=== PATIENT | male | born 2000 | race Caucasian/White ===

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

== ENCOUNTER 2021-02-05 21:04 | Emergency (ER) | payer MEDICAID, SELFPAY ==
[2021-02-05 21:05] VITALS: BP 127/78; PULSE 98; RESP 16; TEMP 36.2; O2SAT 98; BMI 40.2
--- NOTE | 2021-02-05 22:21 | ED.RN ---
LEFT WITHOUT BEING SEEN.
== END 2021-02-05 21:40 | disposition left against medical advice (07) ==
PROVIDERS: PCP Pediatrics
DX: Z53.21 Procedure and treatment not carried out due to patient leaving prior to being seen by health care provider (principal)

== ENCOUNTER 2021-07-21 20:59 | Emergency (ER) | payer MEDICAID, SELFPAY ==
[2021-07-21 21:00] VITALS: BP 146/86; PULSE 92; RESP 16; TEMP 36; O2SAT 97; BMI 30.1
--- NOTE | 2021-07-21 21:54 | ED.RN ---
DOCTOR WANTED CRISIS TO BE CALLED, JUST SO THE PATIENT CAN TALK TO CRISIS
--- NOTE | 2021-07-21 21:59 | EDS_ITS ---
HPI HPI - Psych History of Present Illness Chief Complaint: Suicidal Narrative Narrative: 21-year-old male with history of autism and ADHD presenting after saying he wanted to kill himself and hurt his family because he was mad. He states that he was mad because his mother was yelling at him because he was not doing things he was supposed to. He states that when they get mad and yell at him it makes him angry. He states that he does not actually want to hurt himself or his family. He also states that he will not actually go through with it. He does not have a plan for either. He states currently he does not feel angry and does not want to hurt himself or anybody else. [facility] Medical History ADHD Anxiety Autism Depression Diabetes Home Medications dexmethylphenidate 10 mg PO DAILY 02/14/19 [History Last Taken Unknown] haloperidol 1 mg PO DAILY 02/14/19 [History Last Taken Unknown] metformin 850 mg PO BID 02/14/19 [History Last Taken Unknown] sertraline 100 mg PO DAILY 02/14/19 [History Last Taken Unknown] Allergy/AdvReac Type Severity Reaction Status Date / Time No Known Allergies Allergy Verified 07/21/21 20:59 Social History Smoking Status: Never smoker [facility] ED Constitutional Constitutional ED: Denies chills, fever(s) or sweats Eyes Eyes: Denies blurry vision or change in vision ENT ENT ED: Denies ear pain or sore throat Cardiovascular Cardiovascular: Denies chest pain, palpitations or racing heartbeat Respiratory/Chest Respiratory/Chest: Denies cough, dyspnea or sputum Gastrointestinal Gastrointestinal: Denies abdominal pain, constipation, diarrhea, nausea or vomiting Genitourinary Genitourinary ED: Denies dysuria, hematuria or urinary frequency Musculoskeletal Musculoskeletal: Denies arthralgias, myalgias or neck pain Integumentary Denies abscess, Abrasions or rash Neurologic Neurologic: Denies headache(s), paresthesias or weakness Psychiatric Psychiatric: Reports suicidal thoughts; Denies anxiety, depression or suicidal ideation Endocrine Endocrinology: Denies polydipsia or polyuria EXAM Physical Exam Const Vital Signs: 07/21/21 21:00 07/21/21 22:45 07/21/21 23:28 Temperature 96.8 F L Temperature Source Temporal Pulse Rate 92 Respiratory Rate 16 16 16 Blood Pressure 146/86 H Blood Pressure Mean 106 Pulse Ox 97 Oxygen Delivery Method Room Air Positive well nourished General Appearance ED: NAD; Negative for pallor HEENT Reports normocephalic, head/scalp atraumatic and moist mucous membranes normocephalic Eyes PERRL and EOMs intact bilaterally Neck no lymphadenopathy and supple Chest Wall inspection of chest normal and palpation of chest normal Resp normal respiratory effort and clear to auscultation bilaterally Auscultation: Negative for rales, rhonchi or wheezes Cardio regular rate and regular rhythm GI normal to inspection, nondistended, normoactive bowel sounds and non-distended Auscultation: normoactive bowel sounds Palpation: soft Narrative: Deferred Back/Spine no CVA tenderness General Back: Negative for CVA tenderness Cervical Spine: Negative for cervical spine tenderness Extremity normal to inspection General Extremety ED: Yes edema and tenderness General Extremity: edema Neuro oriented x3 and CN's II-XII intact bilaterally Sensorium / Orientation: alert Motor Exam: strength 5/5 throughout Psych mental status grossly normal Appearance: grossly normal Attitude: No agitated Activity / Motor Behavior: appropriate eye contact Attention / Concentration: attention grossly intact Insight: fair Judgement: fair Skin no rashes or lesions noted and no wounds General Skin Exam: Negative for jaundice or pallor MDM MDM MDM Narrative Medical decision making narrative: Patient presenting with anger outburst. After talking with crisis we both believe that the patient is safe for discharge. She states that she had a long talk with his parents and recommended teaching him how to redirect his anger because he has been more having more anger worse. She also stated that his parents had not been reaching out to his psychiatrist and telling him when he is having anger outburst that they have not been giving him ways to deal with it. She recommended reaching out to the psychiatrist. We do not believe the patient is suicidal or homicidal. We believe he can be safely discharged home. Impression: 1. Suicidal statements 2. Aggressive behavior Discharge Plan Triage Chief Complaint: Suicidal ED Provider: Naresh Coombs Dx/Rx/DC Orders Instructions: ED Personality Disorder, Family Support for Autism ... Prescriptions: No Action sertraline 100 mg tablet 100 mg PO DAILY RF: 0 metformin 850 MG tablet 850 mg PO BID RF: 0 haloperidol 1 MG tablet 1 mg PO DAILY RF: 0 dexmethylphenidate 10 MG tablet 10 mg PO DAILY RF: 0 Primary Care Provider: Care Physician,No Primary Referrals: Care Physician,No Primary [Primary Care Provider] - Disposition Disposition: Home, Self Care
[2021-07-21 22:45] VITALS: RESP 16
[2021-07-21 23:28] VITALS: RESP 16
[2021-07-22 00:02] VITALS: RESP 15
== END 2021-07-22 00:02 | disposition home or self-care (01) ==
PROVIDERS: Emergency Provider Student in an Organized Health Care Education/Training Program; Visit Provider Student in an Organized Health Care Education/Training Program
DX: F84.0 Autistic disorder (principal)
CPT/HCPCS: 99284

== ENCOUNTER 2021-09-09 07:04 | Outpatient (CLI) | payer MEDICAID, SELFPAY ==
[2021-09-09 07:47] LABS: Hematocrit 45.6 % (40-54); Hemoglobin 15.6 g/dL (13.0-16.5); Mean Corp Hgb Conc 34.2 g/dL (32-36); Mean Corpuscular Hgb 28.9 pg (27.0-32.0); Mean Corpuscular Volume 84.4 fL (80-94); Mean Platelet Vol. 11.1 fl (6.2-12.0); Platelet Count 219 K/mm3 (150-450); RBC Distribution Width CV 12.5 % (11.6-14.6); RBC Distribution Width SD 37.9 fl (35.1-43.9); White Blood Count 8.9 K/mm3 (4.4-11.0)
[2021-09-09 08:16] LABS: Anion Gap 5 (5-15); BUN 18 mg/dL (7-18); BUN/Creat Ratio 23.2 RATIO (10-20); Calcium,Total 8.4 mg/dL (8.5-10.1); Chloride 105 mmol/L (98-107); Cholesterol 150 mg/dL (200); Creatinine, Serum 0.78 mg/dL (0.70-1.30); EST Glomerular Filtration Rate 135 mL/min (>60); Est Glom Filt Rate - Afr Amer 163 mL/min (>60); Glucose 113 mg/dL (74-106); High Density Lipoprotein 28 mg/dL; Potassium 4.2 mmol/L (3.5-5.1); Sodium Level 139 mmol/L (136-145); Thyroid Stim Hormone (TSH) 1.68 uIU/mL (0.358-3.74); Triglycerides 163 mg/dL; Very Low Density Lipoprotein 33 mg/dL (5-40)
== END 2021-09-09 23:59 | disposition home or self-care (01) ==
PROVIDERS: PCP Family Medicine; Referring Provider Family Medicine; Visit Provider Family Medicine
DX: Z00.00 Encounter for general adult medical examination without abnormal findings (principal); R30.0 Dysuria
CPT/HCPCS: 36415; 80048; 80061; 84443; 85027; 87086; 87088

== ENCOUNTER 2022-11-30 21:36 | Emergency (ER) | payer MEDICAID, SELFPAY ==
[2022-11-30 21:37] VITALS: BP 133/71; PULSE 82; RESP 16; TEMP 36.4; O2SAT 99
[2022-11-30 21:43] VITALS: BMI 36.4
--- NOTE | 2022-11-30 21:53 | EDS_ITS ---
HPI History of Present Illness Chief Complaint: Complaint Informant: patient and parent Narrative Narrative: Patient complains of some burning when he urinates for the last day and a half. It sounds like his outputs been normal. He has no difficulty urinating. No nausea vomiting abdominal pain back pain flank pain or change in bowel habits. No fevers or chills. No eye pain itching or discharge. No joint pain. He has no penile discharge. He has no testicular pain. He has not had this before. He does state that the urine is darker than normal but he has no back or flank pain or history of kidney stones. Nothing really makes this better or worse. [facility] Medical History ADHD Anxiety Autism Depression Diabetes Home Medications dexmethylphenidate 10 mg tablet 10 mg PO DAILY 02/14/19 [History Last Taken Unknown] haloperidol 1 mg tablet 1 mg PO DAILY 02/14/19 [History Last Taken Unknown] metformin 850 mg tablet 850 mg PO BID 02/14/19 [History Last Taken Unknown] sertraline 100 mg tablet 100 mg PO DAILY 02/14/19 [History Last Taken Unknown] metformin 1,000 mg tablet 1,000 mg PO BID 11/30/22 [History Last Taken 11/30/22] metoprolol succinate 100 mg tablet,extended release 24 hr 100 mg PO DAILY 11/30/22 [History Last Taken 11/30/22] naproxen 500 mg tablet 500 mg PO BID #20 tabs 11/30/22 [Rx Last Taken Unknown] topiramate 25 mg tablet 25 mg PO Q12H 11/30/22 [History Last Taken Unknown] Allergy/AdvReac Type Severity Reaction Status Date / Time No Known Allergies Allergy Verified 07/21/21 20:59 Social History Smoking Status: Never smoker ROS ROS ED ROS Narrative A complete review of systems was performed and is negative except as documented in the history of present illness. Some specific details below. Constitutional: No recent fevers or chills. EYE: No visual complaints or pain. No itching or burning. ENT: No difficulty swallowing. No swelling. No pain. No thrush CV: No chest pain or palpitations. Respiratory: No dyspnea. No hemoptysis. No difficulty taking breaths. GI: No nausea vomiting abdominal pain back pain flank pain or diarrhea. : See history of present illness. Musculoskeletal: No recent trauma. No pains. Including no pains in his back. Skin: No rash. Nondiaphoretic. Neuro: No weakness or numbness. Endocrine: No polyuria or polydipsia. He does have a history of prediabetes but is on metformin 1000 mg twice a day. EXAM Physical Exam Narrative Exam Narrative: CONSTITUTIONAL: Patient is nontoxic in appearance. The patient looks comfortable. HEENT: No notable trauma. Mucous membranes moist. EYES: No conjunctival injection. No proptosis. No discharge CARDIOVASCULAR: Regular rate. Regular rhythm. No notable murmur. No JVD. RESPIRATORY: No respiratory distress. Breathing is unlabored. No wheezes. No rhonchi. No rales. No pain with a deep breath. GASTROINTESTINAL: Not distended. Bowel sounds are normal. No tenderness. No guarding. No rebound. No palpable mass. No bruit. Abdomen is completely benign GENITOURINARY: No tenderness over the bladder. No CVA tenderness. No testicular tenderness or enlargement. No inguinal mass tenderness or hernia. No inguinal or penile sores. No penile discharge. Overall external exam is normal. MUSCULOSKELETAL: Atraumatic. NEUROLOGICAL: Patient is alert and appropriate. No focal deficit noted. SKIN: No noted rashes. No diaphoresis. PSYCHIATRIC: Patient is calm. Mood is appropriate. Const Vital Signs: 11/30/22 21:37 Temperature 97.6 F L Temperature Source Temporal Pulse Rate 82 Respiratory Rate 16 Blood Pressure 133/71 H Blood Pressure Mean 91 Pulse Ox 99 Oxygen Delivery Method Room Air [facility] Narrative Medical decision making narrative: Blood glucose is reasonably well controlled at 135 when checked here. Urinalysis shows only 0-5 white cells. No nitrites. There was a small amount of ketones. There was a rare calcium oxalate crystal. This brings into question could this be a kidney stone. I talked with the patient. He is not having pain in the abdomen flank or back. He has never had nausea or vomiting. He only has dysuria. He now does state that sometimes he has pain kind of in the lower pelvis when he stands up or moves but not all the time. This has been going on about a day or day and a half. It sounds like his dad did have kidney stones but he has never had 1. We discussed doing blood work and doing CAT scan of the abdomen. But this patient is extremely comfortable. He is sitting on the bed comfortable on his phone. I think it is reasonable to have him drink fluids as he has no nausea or vomiting is not had at any point. I told him he should drink water until the urine is pale yellow. He does not need to make it clear. We will get him some Naprosyn that I think will help for his pain. If he passes a small stone he should try to save that. I explained what they would look like and the likely size. If he still having symptoms after a few days to the week or if he develops pain, nausea vomiting, fevers or other symptoms he should return and we will do further imaging and evaluation at that point. Lab Data Attestation: I reviewed the patient's lab results. Labs: Laboratory Results - last 24 hr 11/30/22 11/30/22 22:05 22:07 Urine Color Yellow Urine Clarity Sl. Cloudy Urine pH 6.0 Ur Specific [place] 1.025 Urine Protein 30 H Urine Glucose (UA) Normal Urine Ketones 5 H Urine Occult Blood Negative Urine Nitrite Negative Urine Bilirubin 1 H Urine Urobilinogen 1 H Ur Leukocyte Esterase 25 H Urine RBC 0 SEEN Urine WBC 0-5 SEEN Ur Squamous Epith Cells 0-5 SEEN Calcium Oxalate Crystal RARE Amorphous Sediment 1+ URATE Urine Bacteria 0 SEEN Urine Mucus 0 SEEN POC Glucose 135 H Discharge Plan Triage Chief Complaint: Complaint ED Provider: Jose Fish Dx/Rx/DC Orders Clinical Impression: Dysuria, Diabetes type 2, controlled, Calciuria Instructions: Kidney Stones Expectant Tx Prescriptions: New naproxen 500 mg tablet 500 mg PO BID Qty: 20 0RF No Action sertraline 100 mg tablet 100 mg PO DAILY Patient Comments: Take 1 tablet by mouth at bedtime metformin 850 MG tablet 850 mg PO BID haloperidol 1 MG tablet 1 mg PO DAILY dexmethylphenidate 10 MG tablet 10 mg PO DAILY metformin 1,000 mg tablet 1,000 mg PO BID Patient Comments: Take 1 tablet by mouth twice a day as directed Take 1 tab with Breakfast & 1 tab with Dinner. metoprolol succinate 100 mg tablet extended release 24 hr 100 mg PO DAILY Patient Comments: Take 1 tablet by mouth every morning topiramate 25 mg tablet 25 mg PO Q12H Patient Comments: Take 1 tablet by mouth twice a day AM and Bed Primary Care Provider: Rodrigo Sheehan Referrals: Rodrigo Sheehan MD [Primary Care Provider] - 1-2 Days if not improving Activity Restrictions/Additional Instructions: Drink water to make your urine pale yellow. Return with pain, vomiting, fevers or other concerns. Disposition Disposition: Home, Self Care
[2022-11-30 22:07] LABS: Bacteria 0 SEEN /hpf (None Seen); Mucous, Urine 0 SEEN /hpf (<or=2+); Red Blood Cells-Urine 0 SEEN /hpf (0-5)
[2022-11-30 22:26] LABS: Bedside Glucose 135 mg/dL (74-106)
[2022-11-30 22:52] LABS: Color, Urine Yellow (Yellow); Glucose, Dipstick Normal (Normal); Ketone-Dipstick 5 mg/dl (Negative); Leukocyte Esterase-Dipstick 25 /ul (Negative); Nitrite-Dipstick Negative (Negative); Occult Blood-Urine Negative /ul (Negative); Protein-Dipstick 30 mg/dl (Negative); Specific Gravity, Urine 1.025 (1.002-1.030); Urine Clarity Sl. Cloudy (Clear); Urine Urobilinogen 1 mg/dl (Normal)
[2022-11-30 23:04] LABS: Squamous Epithelial Cells - UA 0-5 SEEN /hpf (0-5); Urine Bilirubin Dipstick 1 mg/dL (Negative); White Blood Cells 0-5 SEEN /hpf (0-5)
[2022-11-30 23:05] LABS: Amorphous Sediment 1+ URATE; Calcium Oxalate Crystals Ur RARE /hpf (<or=2+)
[2022-11-30] MEDS: Naproxen 250 MG Tablet 500 MG PO (23:35)
[2022-11-30 23:37] VITALS: BP 135/64; PULSE 75; RESP 18; O2SAT 100
== END 2022-11-30 23:37 | disposition home or self-care (01) ==
PROVIDERS: Emergency Provider Emergency Medicine; PCP Family Medicine; Visit Provider Emergency Medicine
DX: R30.0 Dysuria (principal); E11.9 Type 2 diabetes mellitus without complications; F41.9 Anxiety disorder, unspecified; R82.994 Hypercalciuria; Z79.899 Other long term (current) drug therapy; Z79.84 Long term (current) use of oral hypoglycemic drugs
CPT/HCPCS: 81001; 82962; 87086; 99283

== ENCOUNTER → 2023-01-19 | Outpatient (CLI) | payer MEDICAID, SELFPAY ==
[2023-01-19 08:38] LABS: Anion Gap 3 (5-15); BUN 14 mg/dL (7-18); BUN/Creat Ratio 14.1 RATIO (10-20); Calcium,Total 8.6 mg/dL (8.5-10.1); Chloride 110 mmol/L (98-107); Cholesterol 143 mg/dL (200); Creatinine, Serum 0.99 mg/dL (0.70-1.30); EST Glomerular Filtration Rate 100 mL/min (>60); Est Glom Filt Rate - Afr Amer 121 mL/min (>60); Glucose 146 mg/dL (74-106); High Density Lipoprotein 30 mg/dL; Potassium 4.2 mmol/L (3.5-5.1); Sodium Level 140 mmol/L (136-145); Triglycerides 193 mg/dL; Very Low Density Lipoprotein 39 mg/dL (5-40)
[2023-01-20 09:58] LABS: Hemoglobin A1c 5.2 % (3.8-5.6)
== END | disposition home or self-care (01) ==
LOC: LAB 07:43
PROVIDERS: PCP Family Medicine; Referring Provider Family Medicine; Visit Provider Family Medicine
DX: R73.03 Prediabetes (principal)
CPT/HCPCS: 36415; 80048; 80061; 83036

== ENCOUNTER → 2023-03-20 | Outpatient (CLI) | payer MEDICAID, SELFPAY ==
[2023-03-20 13:05] LABS: Bacteria 0 SEEN /hpf (None Seen); Mucous, Urine 0 SEEN /hpf (<or=2+); Red Blood Cells-Urine 0 SEEN /hpf (0-5); Squamous Epithelial Cells - UA 0 SEEN /hpf (0-5); White Blood Cells 0 SEEN /hpf (0-5)
[2023-03-20 13:20] LABS: Color, Urine Yellow (Yellow); Glucose, Dipstick Normal (Normal); Ketone-Dipstick Negative (Negative); Leukocyte Esterase-Dipstick Negative /ul (Negative); Nitrite-Dipstick Negative (Negative); Occult Blood-Urine Negative /ul (Negative); Protein-Dipstick Negative (Negative); Urine Bilirubin Dipstick Negative (Negative); Urine Clarity Clear (Clear); Urine Urobilinogen Normal (Normal)
[2023-03-20 13:41] LABS: Amorphous Sediment 2+
[2023-04-08 13:35] LABS: Chlamydia By Nucleic Acid AMP Negative; Gonococcus By Nucleic Acid AMP Negative
== END | disposition home or self-care (01) ==
LOC: LABSPEC 03-21 09:56
PROVIDERS: PCP Family Medicine; Visit Provider Physician Assistant
DX: R30.0 Dysuria (principal)
CPT/HCPCS: 81001; 87086; 87491; 87591

== ENCOUNTER 2023-03-22 12:08 | Emergency (ER) | payer MEDICAID, SELFPAY ==
[2023-03-22 12:09] VITALS: BP 146/70; PULSE 76; RESP 18; TEMP 35.8; O2SAT 99; BMI 37.0
--- NOTE | 2023-03-22 12:36 | EX.ED.DYSGE1 ---
HPI History of Present Illness Chief Complaint: Abd Pain Informant: patient Narrative Narrative: 22-year-old male presenting to the emergency room chief complaint is abdominal pain. Patient states for the past 2 weeks he has had intermittent but near constant right upper quadrant pain. Nothing seems to make it better or worse. He does note that pushing on it definitely hurts. He denies vomiting or diarrhea. Food does not alter it. He denies any prior abdominal surgeries. No fever. No rashes. No flank pain or shoulder pain. Normal bowel movement today. Patient is a diabetic on metformin. He was seen by his primary care doctor this morning was referred to the emergency department [facility] Medical History Abdominal pain ADHD Anxiety Autism Depression Diabetes Home Medications dexmethylphenidate 10 mg tablet 10 mg PO DAILY 02/14/19 [History Last Taken Unknown] haloperidol 1 mg tablet 1 mg PO DAILY 02/14/19 [History Last Taken Unknown] metformin 850 mg tablet 850 mg PO BID 02/14/19 [History Last Taken Unknown] sertraline 100 mg tablet 100 mg PO DAILY 02/14/19 [History Last Taken Unknown] metformin 1,000 mg tablet 1,000 mg PO BID 11/30/22 [History Last Taken 11/30/22] metoprolol succinate 100 mg tablet,extended release 24 hr 100 mg PO DAILY 11/30/22 [History Last Taken 11/30/22] naproxen 500 mg tablet 500 mg PO BID #20 tabs 11/30/22 [Rx Last Taken Unknown] topiramate 25 mg tablet 25 mg PO Q12H 11/30/22 [History Last Taken Unknown] Allergy/AdvReac Type Severity Reaction Status Date / Time No Known Allergies Allergy Verified 03/22/23 12:09 Social History Smoking Status: Never smoker ROS ROS ED Constitutional Constitutional ED: Denies chills, fever(s) or weight loss Eyes Eyes: Denies change in vision or diplopia ENT ENT ED: Denies ear pain, rhinorrhea or sore throat Cardiovascular Cardiovascular: Denies chest pain, orthopnea, palpitations or racing heartbeat Respiratory/Chest Respiratory/Chest: Denies cough, dyspnea or orthopnea Gastrointestinal Gastrointestinal: Reports abdominal pain; Denies constipation, diarrhea, melena, nausea or vomiting Genitourinary Genitourinary ED: Denies dysuria, hematuria or urinary frequency Musculoskeletal Musculoskeletal: Denies arthralgias or myalgias Integumentary Denies abscess or rash Neurologic Neurologic: Denies headache(s) or weakness Psychiatric Psychiatric: Denies anxiety, depression, suicidal ideation or suicidal thoughts Endocrine Endocrinology: Denies polydipsia, polyphagia or polyuria Allergic/Immunologic Allergic/Immunologic ED: Denies mouth swelling, tongue swelling or urticaria EXAM Physical Exam Const Vital Signs: 03/22/23 12:09 Temperature 96.4 F L Temperature Source Temporal Pulse Rate 76 Respiratory Rate 18 Blood Pressure 146/70 H Blood Pressure Mean 95 Pulse Ox 99 Oxygen Delivery Method Room Air Positive well nourished and well developed General Appearance ED: well developed HEENT Reports normocephalic, head/scalp atraumatic and moist mucous membranes Eyes PERRL and EOMs intact bilaterally Neck no lymphadenopathy, supple and no JVD Resp normal respiratory effort and clear to auscultation bilaterally Cardio regular rate, regular rhythm and no murmurs GI normal to inspection, nondistended, normoactive bowel sounds Inspection: Negative for abdominal distention Auscultation: normoactive bowel sounds Palpation: soft and tender RUQ; Negative for guarding or rebound tenderness present Back/Spine no CVA tenderness and normal ROM Extremity normal to inspection General Extremety ED: Negative for edema General Extremity: Negative for edema Neuro oriented x3 and CN's II-XII intact bilaterally Sensorium / Orientation: alert Motor Exam: strength 5/5 throughout Psych mental status grossly normal Mood & Affect: Negative for depressed or tearful Skin no rashes or lesions noted and no wounds MDM MDM MDM Narrative Medical decision making narrative: Basic blood works obtained showed a white count 6.2 hemoglobin 16.6. Creatinine 0.92. Normal enzymes and lipase. This is CT of the abdomen pelvis with IV contrast was obtained. This confound changes consistent with mesenteric adenitis. There is no evidence of appendicitis or acute cholecystitis. No gallstones were noted. No evidence of colitis/diverticulitis. Patient was given reassurance and would recommend anti-inflammatories. Follow-up as needed History & Record Review Discussion w/independent historian: Patient and Family Lab Data Attestation: I reviewed the patient's lab results. Labs: Laboratory Results - last 24 hr 03/22/23 12:30 WBC 6.2 RBC 5.76 Hgb 16.6 H Hct 49.9 MCV 86.6 MCH 28.8 MCHC 33.3 RDW Std Deviation 38.0 RDW Coeff of Lynn 12.0 Plt Count 177 MPV 11.6 Immature Gran % (Auto) 0.300 Neut % (Auto) 62.0 Lymph % (Auto) 30.2 Nolan % (Auto) 6.2 Eos % (Auto) 1.0 Baso % (Auto) 0.3 Absolute Neuts (auto) 3.8 Absolute Lymphs (auto) 1.86 Nucleated RBC % 0 Sodium 140 Potassium 5.0 Chloride 108 H Carbon Dioxide 28.0 Anion Gap 4 L BUN 16 Creatinine 0.92 Estim Creat Clear Calc 131.14 Est GFR (MDRD) Af Amer 133 Est GFR (MDRD) Non-Af 110 BUN/Creatinine Ratio 17.5 Glucose 128 H Calcium 8.5 Total Bilirubin 0.40 Direct Bilirubin 0.06 AST 33 ALT 28 Alkaline Phosphatase 54 Total Protein 6.5 Albumin 3.3 Globulin 3.2 Lipase 15 Urine Color Yellow Urine Clarity Sl. Cloudy Urine pH 7.0 Ur Specific Vanderbilt 1.010 Urine Protein 15 H Urine Glucose (UA) Normal Urine Ketones Negative Urine Occult Blood Negative Urine Nitrite Negative Urine Bilirubin Negative Urine Urobilinogen Normal Ur Leukocyte Esterase 25 H Urine RBC 0 SEEN Urine WBC 0-5 SEEN Ur Squamous Epith Cells 0 SEEN Amorphous Sediment 2+ Urine Bacteria 1+ Urine Mucus 0 SEEN Radiography Diagnostic Testing: Clinical Impression(s) from Imaging Studies Abdomen/Pelvis CT 03/22/23 13:28 IMPRESSION: Findings suggestive of mesenteric adenitis in the right lower quadrant. Electronically Signed: Atul Coburn MD at 14:56 EDT , Discharge Plan Triage Chief Complaint: Abd Pain ED Provider: Rajinder Rodriguez Dx/Rx/DC Orders Clinical Impression: Mesenteric adenitis, Abdominal pain Instructions: ED Adenitis, Mesenteric Prescriptions: No Action sertraline 100 mg tablet 100 mg PO DAILY Patient Comments: Take 1 tablet by mouth at bedtime metformin 850 MG tablet 850 mg PO BID haloperidol 1 MG tablet 1 mg PO DAILY dexmethylphenidate 10 MG tablet 10 mg PO DAILY metformin 1,000 mg tablet 1,000 mg PO BID Patient Comments: Take 1 tablet by mouth twice a day as directed Take 1 tab with Breakfast & 1 tab with Dinner. metoprolol succinate 100 mg tablet extended release 24 hr 100 mg PO DAILY Patient Comments: Take 1 tablet by mouth every morning topiramate 25 mg tablet 25 mg PO Q12H Patient Comments: Take 1 tablet by mouth twice a day AM and Bed naproxen 500 mg tablet 500 mg PO BID Qty: 20 0RF Primary Care Provider: Rodrigo Sheehan Referrals: Rodrigo Sheehan MD [Primary Care Provider] - As Needed Disposition Disposition: Home, Self Care
[2023-03-22 12:46] LABS: Mucous, Urine 0 SEEN /hpf (<or=2+); Red Blood Cells-Urine 0 SEEN /hpf (0-5); Squamous Epithelial Cells - UA 0 SEEN /hpf (0-5)
[2023-03-22 12:51] LABS: Absolute Lymphocyte Count 1.86 X10^3/uL (0.83-4.51); Absolute Neutrophil Count 3.8 X10^3/uL (2.0-7.7); Basophil# 0.02 X10^3/uL; Basophil% 0.3 % (0-1); Eosinophil# 0.06 X10^3/uL; Hematocrit 49.9 % (40-54); Hemoglobin 16.6 g/dL (13.0-16.5); Lymphocyte # 1.86 X10^3/ul (0.83-4.51); Lymphocyte % 30.2 % (19-41); Mean Corp Hgb Conc 33.3 g/dL (32-36); Mean Corpuscular Hgb 28.8 pg (27.0-32.0); Mean Corpuscular Volume 86.6 fL (80-94); Mean Platelet Vol. 11.6 fl (6.2-12.0); Monocyte# 0.38 X10^3/uL; Monocyte% 6.2 % (0-10); NRBC Flagged by Analyzer 0 % (0-5); Neutrophil # 3.81 X10^3/uL (2.7-7.7); Platelet Count 177 K/mm3 (150-450); Red Blood Count 5.76 M/mm3 (4.6-6.2); White Blood Count 6.2 K/mm3 (4.4-11.0)
[2023-03-22 13:04] LABS: Color, Urine Yellow (Yellow); Glucose, Dipstick Normal (Normal); Ketone-Dipstick Negative (Negative); Leukocyte Esterase-Dipstick 25 /ul (Negative); Nitrite-Dipstick Negative (Negative); Occult Blood-Urine Negative /ul (Negative); Protein-Dipstick 15 mg/dl (Negative); Urine Bilirubin Dipstick Negative (Negative); Urine Clarity Sl. Cloudy (Clear); Urine Urobilinogen Normal (Normal)
[2023-03-22 13:11] LABS: AST(SGOT) 33 U/L (15-37); Alanine Aminotransfer ALT/SGPT 28 U/L (16-61); Albumin, Serum 3.3 g/dL (3.2-5.0); Alkaline Phosphatase 54 U/L (45-117); Anion Gap 4 (5-15); BUN 16 mg/dL (7-18); BUN/Creat Ratio 17.5 RATIO (10-20); Bilirubin, Direct 0.06 mg/dL (0.00-0.30); Calcium,Total 8.5 mg/dL (8.5-10.1); Chloride 108 mmol/L (98-107); Creatinine, Serum 0.92 mg/dL (0.70-1.30); EST Glomerular Filtration Rate 110 mL/min (>60); Est Glom Filt Rate - Afr Amer 133 mL/min (>60); Estimated Creatinine Clearance 131.14 ml/min; Globulin 3.2 g/dL (2.2-4.2); Glucose 128 mg/dL (74-106); Lipase 15 U/L (13-75); Protein, Total 6.5 g/dL (6.4-8.2); Sodium Level 140 mmol/L (136-145); White Blood Cells 0-5 SEEN /hpf (0-5)
[2023-03-22 13:12] LABS: Amorphous Sediment 2+; Bacteria 1+ /hpf (None Seen)
--- NOTE | 2023-03-22 13:28 | CT_ITS ---
STUDY: CT ABDOMEN AND PELVIS WITH CONTRAST REASON FOR EXAM: Male, 22 years old. 2 week history of abdominal pain. RADIATION DOSAGE (If Supplied By Facility): CTDIvol = ( 16.81 ) mGy, DLP = ( 1393.86 ) mGycm TECHNIQUE: Transaxial images were obtained from the dome of the diaphragm to the symphysis pubis without oral contrast. IV 100mL Isovue-300 was administered. Sagittal and coronal images were reconstructed. Individualized dose optimization techniques were used for this CT. COMPARISON: None. FINDINGS: The visualized lung bases are unremarkable. The visualized portions of the heart are within normal limits. Normal liver. Normal gallbladder and extrahepatic biliary system. Normal spleen. Normal pancreas. Normal bilateral adrenal glands. Normal right kidney. Normal left kidney. Normal visualized stomach. Normal small intestine. Normal colon. The appendix is visualized and appears normal. Several enlarged lymph nodes are seen in the mesenteric fat in the right lower quadrant suggestive of mesenteric lymphadenitis. Normal abdominal aorta. Normal inferior vena cava. Normal retroperitoneum. Normal urinary bladder. Normal abdominal wall. Normal osseous structures. CT/Abdomen/Pelvis W IV Cont ONLY IMPRESSION: Findings suggestive of mesenteric adenitis in the right lower quadrant. Electronically Signed: Atul Coburn MD at 14:56 EDT ,
[2023-03-22 15:40] VITALS: BP 138/76; PULSE 80; RESP 16
== END 2023-03-22 15:42 | disposition home or self-care (01) ==
PROVIDERS: Emergency Provider Emergency Medicine; PCP Family Medicine; Visit Provider Emergency Medicine
DX: I88.0 Nonspecific mesenteric lymphadenitis (principal); E11.9 Type 2 diabetes mellitus without complications; Z79.84 Long term (current) use of oral hypoglycemic drugs
CPT/HCPCS: 74177; 80048; 80076; 81001; 83690; 85025; 99283; Q9967; A4216

== ENCOUNTER → 2023-07-06 | Outpatient (CLI) | payer MEDICAID, SELFPAY ==
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
[2023-07-06 10:04] LABS: Anion Gap 3 (5-15); BUN 15 mg/dL (7-18); BUN/Creat Ratio 15.5 RATIO (10-20); Calcium,Total 8.9 mg/dL (8.5-10.1); Chloride 110 mmol/L (98-107); Cholesterol 153 mg/dL (200); Creatinine, Serum 0.97 mg/dL (0.70-1.30); EST Glomerular Filtration Rate 103 mL/min (>60); Est Glom Filt Rate - Afr Amer 125 mL/min (>60); Glucose 114 mg/dL (74-106); High Density Lipoprotein 35 mg/dL; Potassium 4.9 mmol/L (3.5-5.1); Sodium Level 142 mmol/L (136-145); Triglycerides 102 mg/dL; Very Low Density Lipoprotein 20 mg/dL (5-40)
[2023-07-09 14:36] LABS: Hemoglobin A1c 5.8 % (3.8-5.6)
== END | disposition home or self-care (01) ==
LOC: LAB 08:45
PROVIDERS: PCP Family Medicine; Referring Provider Family Medicine; Visit Provider Family Medicine
DX: Z00.00 Encounter for general adult medical examination without abnormal findings (principal); R73.09 Other abnormal glucose
CPT/HCPCS: 36415; 80048; 80061; 83036

== ENCOUNTER → 2024-04-08 | Outpatient (CLI) | payer MEDICAID, SELFPAY | END | disposition home or self-care (01) | LOC: MRI 16:16 | PROVIDERS: PCP Family Medicine; Referring Provider Psychiatry & Neurology Neurology; Visit Provider Psychiatry & Neurology Neurology | DX: R26.9 Unspecified abnormalities of gait and mobility (principal); F95.2 Tourette's disorder | CPT/HCPCS: 70553; A9579 ==

== ENCOUNTER → 2024-09-07 | Outpatient (CLI) | payer MEDICAID, SELFPAY ==
[2024-09-07 09:25] LABS: Hematocrit 47.7 % (40-54); Hemoglobin 16.3 g/dL (13.0-16.5); Mean Corp Hgb Conc 34.2 g/dL (32-36); Mean Corpuscular Hgb 29.2 pg (27.0-32.0); Mean Corpuscular Volume 85.3 fL (80-94); Mean Platelet Vol. 11.3 fl (6.2-12.0); Platelet Count 189 K/mm3 (150-450); RBC Distribution Width CV 12.2 % (11.6-14.6); RBC Distribution Width SD 37.8 fl (35.1-43.9); Red Blood Count 5.59 M/mm3 (4.6-6.2); White Blood Count 8.1 K/mm3 (4.4-11.0)
[2024-09-07 09:56] LABS: Ammonia 27.4 umol/L (16-60)
[2024-09-07 10:29] LABS: ALB/GLOB Ratio 1.7 RATIO (0.9-2.4); AST(SGOT) 14 U/L (<=37); Alanine Aminotransfer ALT/SGPT 18 U/L (<=46); Albumin, Serum 3.9 g/dL (3.5-5.0); Alkaline Phosphatase 72 U/L (40-129); Anion Gap 9 (5-15); BUN 13 mg/dL (4-19); Calcium,Total 8.7 mg/dL (7.6-11.0); Carbon Dioxide 25.1 mmol/L (21.0-32.0); Chloride 108 mmol/L (98-108); Creatinine, Serum 0.93 mg/dL (0.70-1.20); EST Glomerular Filtration Rate 118 (>60); Globulin 2.3 g/dL (2.2-4.2); Glucose 123 mg/dL (70-99); Potassium 4.5 mmol/L (3.3-5.1); Protein, Total 6.3 g/dL (5.9-8.4); Sodium Level 142 mmol/L (133-145); Total Bilirubin 0.42 mg/dL (0.00-1.30); Vitamin B12 470 pg/mL (180-914)
[2024-09-11 12:08] LABS: Folate, RBC (Hct) Test 48.9 % (37.5-51.0); Folates, RBC Test 924 ng/mL (>498); Topiramate < 1.5 ug/mL (2.0-25.0); Vitamin B1, Thiamine 156.7 nmol/L (66.5-200.0)
== END | disposition home or self-care (01) ==
LOC: LAB 08:55
PROVIDERS: PCP Family Medicine; Referring Provider Psychiatry & Neurology Neurology; Visit Provider Psychiatry & Neurology Neurology
DX: F95.2 Tourette's disorder (principal)
CPT/HCPCS: 36415; 80053; 80201; 82140; 82607; 82747; 84425; 84443; 85014; 85027

== ENCOUNTER → 2024-12-25 | Outpatient (CLI) | payer MEDICAID, SELFPAY ==
[2024-12-25 08:11] LABS: Hematocrit 48.4 % (40-54); Hemoglobin 16.5 g/dL (13.0-16.5); Immature Granulocytes Count 0.050 X10^3/uL (0.0-0.0); Mean Corp Hgb Conc 34.1 g/dL (32-36); Mean Corpuscular Volume 86.9 fL (80-94); Mean Platelet Vol. 11.3 fl (6.2-12.0); NRBC Flagged by Analyzer 0 % (0-5); Platelet Count 206 K/mm3 (150-450); RBC Distribution Width CV 12.8 % (11.6-14.6); RBC Distribution Width SD 39.6 fl (35.1-43.9); Red Blood Count 5.57 M/mm3 (4.6-6.2); White Blood Count 7.4 K/mm3 (4.4-11.0)
[2024-12-25 09:03] LABS: Cholesterol 146 mg/dL (<=190); Low Density Lipoprotein Calc. 93 mg/dL; Triglycerides 112 mg/dL; Very Low Density Lipoprotein 22 mg/dL (5-40); cholesterol:hdl ratio screen 4.79
[2024-12-25 09:05] LABS: AST(SGOT) 19 U/L (<=37); Alanine Aminotransfer ALT/SGPT 28 U/L (<=46); Albumin, Serum 4.2 g/dL (3.5-5.0); Alkaline Phosphatase 65 U/L (40-129); Anion Gap 10 (5-15); BUN 7 mg/dL (4-19); BUN/Creat Ratio 7.4 RATIO (10-20); Calcium,Total 9.0 mg/dL (7.6-11.0); Carbon Dioxide 24.0 mmol/L (21.0-32.0); Chloride 106 mmol/L (98-108); Globulin 2.4 g/dL (2.2-4.2); Glucose 150 mg/dL (70-99); Potassium 4.2 mmol/L (3.3-5.1)
== END | disposition home or self-care (01) ==
LOC: LAB 07:45
PROVIDERS: PCP Family Medicine
DX: F31.72 Bipolar disorder, in full remission, most recent episode hypomanic (principal)
CPT/HCPCS: 36415; 80053; 80061; 83036; 85025

== ENCOUNTER 2025-01-20 19:03 | Emergency (ER) | payer MEDICAID, SELFPAY ==
[2025-01-20 19:04] VITALS: BP 143/76; PULSE 80; RESP 16; TEMP 36.8; O2SAT 99
--- NOTE | 2025-01-20 19:31 | EKG12_ITS ---
Test Reason : SYNCOPE Blood Pressure : */* mmHG Vent. Rate : 70 BPM Atrial Rate : 70 BPM P-R Int : 124 ms QRS Dur : 84 ms QT Int : 368 ms P-R-T Axes : -2 1 18 degrees QTcB Int : 397 ms Normal sinus rhythm Normal ECG Confirmed by LEANDRA DINH, KATEY ([id number]), photo editor JAY WOOTEN ([id number]) on 01/21/2025 1:36:35 PM Referred By: HUMA Confirmed By: KATEY MOBLEY MD
--- NOTE | 2025-01-20 19:34 | EDS_ITS ---
HPI History of Present Illness Chief Complaint: Syncope Informant: patient and parent Narrative Narrative: History of autism, Tourette's syndrome, anxiety presents here with father persistent lightheaded symptoms. 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 He came around. Since then feeling lightheaded like he is going to pass out. Reports dyspnea with his symptoms. No cough. No recent travel surgery or immobilizations. No history of PE or DVT. No leg swelling recently. No vomiting diarrhea no urinary symptoms. No black or bloody stools. States has been drinking fluids. No history of similar. Today had some chest pain that was transient while he was eating. No family history of sudden heart . No history of coronary disease at a young age. Prior similar symptoms: No PFSH PFSH Medical History Right upper quadrant abdominal pain Abdominal pain Diabetes ADHD Autism Anxiety Depression Home Medications ?Medication ?Instructions ?Recorded ?Last Taken ?Type metoprolol succinate 100 mg 100 mg PO DAILY 11/30/22 0 11/30/22 History tablet,extended release 24 hr topiramate 25 mg tablet 25 mg PO Q12H 11/30/22 Unkno wn History alprazolam 1 mg tablet 1 mg PO ONCE #1 TAB 02/20/24 Unknown Rx buspirone 10 mg tablet 10 mg PO BID #60 tabs Unknown Rx Allergy/AdvReac Type Severity Reaction Status Date / Time No Known Allergies Allergy Verified 01/20/25 19:03 Social History Smoking Status: Never smoker ROS ROS ED Constitutional Constitutional ED: Denies chills, fever(s) or sweats ENT ENT ED: Denies sore throat Cardiovascular Cardiovascular: Reports chest pain and other Details: Lightheaded ; Denies leg edema, palpitations or racing heartbeat Respiratory/Chest Respiratory/Chest: Reports dyspnea; Denies cough or dyspnea on exertion Gastrointestinal Gastrointestinal: Denies abdominal pain, diarrhea, nausea or vomiting Genitourinary Genitourinary ED: Denies dysuria, hematuria or urinary frequency Musculoskeletal Musculoskeletal: Denies back pain, extremity pain or neck pain Integumentary Denies rash or wounds Neurologic Neurologic: Denies headache(s), paresthesias or weakness EXAM Physical Exam Const Vital Signs: 01/20/25 19:04 01/20/25 19:26 01/20/25 21:03 Temperature 98.2 F Temperature Source Oral Pulse Rate 80 61 Respiratory Rate 16 25 H Respiratory Effort Normal Respiratory Pattern Normal Blood Pressure 143/76 H 133/72 H Blood Pressure Mean 98 92 Pulse Ox 99 94 Oxygen Delivery Method Room Air Room Air 01/20/25 22:40 Temperature 97.4 F L Temperature Source Pulse Rate 70 Respiratory Rate 15 Respiratory Effort Respiratory Pattern Blood Pressure 135/76 H Blood Pressure Mean 95 Pulse Ox 99 Oxygen Delivery Method Positive well nourished and well developed General Appearance ED: well developed and NAD HEENT HEENT Narrative: Mild dry mucosal membranes. No tongue abrasion or lacerations. normocephalic and atraumatic Eyes General Eye ED: Yes normal appearance of both eyes Neck full ROM Chest Wall Chest: Negative for tenderness Resp normal respiratory effort and normal air movement Effort and Inspection: symmetric chest movement; Negative for respiratory distress Cardio regular rate, regular rhythm and no murmurs Peripheral Pulses: pulses 2+ throughout GI normal to inspection, nondistended, normoactive bowel sounds and non-tender Palpation: Negative for guarding or rebound tenderness present Extremity normal to inspection General Extremety ED: Negative for edema or tenderness General Extremity: Negative for edema Neuro oriented x3, CN's II-XII intact bilaterally and no sensory deficits noted Neuro Narrative: No focal deficits. Sensorium / Orientation: awake and alert Skin no rashes or lesions noted and no wounds MDM MDM MDM Narrative Medical decision making narrative: Interventions / MDM: Differential diagnosis: Near syncope, dehydration, chest pain Diagnosis considered but do not suspect: ACS however workup negative. Pulm embolus however PERC negative. My EKG interpretation: Sinus rate of 70, no ST changes ST T wave version leads III nonspecific. QTc 397. Imaging independently reviewed and interpreted by myself: 2 view chest x-ray: Mild cardiomegaly with past congestion per radiology. External documents reviewed: N/A Test considered but not ordered:N/A ED course: Complains of syncopal episode 2 days ago. No signs of seizure activity. Orthostatic lightheaded symptoms. No chest pain today. Mild dry mucosal membranes. IV established for fluids. Basic labs ordered along with cardiac enzymes. PERC negative. Chest x-ray ordered. Workup negative clinically feeling better with IV fluids. Troponin negative x 2. Encourage continue oral fluids at home for hydration. Outpatient follow-up. All questions were answered. Re-evaluation: stable Disposition discussed with patient/family/significant other: Patient and father Case discussed with consulting clinician: N/A This note was generated with [employer] dictation software. It may contain incorrect words, spelling, and punctuation that were not noted in checking the note before signing. Lab Data Attestation: I reviewed the patient's lab results. Labs: Laboratory Results - last 24 hr 01/20/25 01/20/25 19:40 21:38 WBC 9.5 RBC 5.42 Hgb 16.2 Hct 45.9 MCV 84.7 MCH 29.9 MCHC 35.3 RDW Std Deviation 36.3 RDW Coeff of [place] 12.1 Plt Count 211 MPV 11.0 Immature Gran % (Auto) 0.400 Neut % (Auto) 67.8 Lymph % (Auto) 24.1 [place] % (Auto) 6.7 Eos % (Auto) 0.7 Baso % (Auto) 0.3 Absolute Neuts (auto) 6.5 Absolute Lymphs (auto) 2.30 Nucleated RBC % 0 Sodium 140 Potassium 3.9 Chloride 105 Carbon Dioxide 22.3 Anion Gap 12 BUN 13 Creatinine 0.95 Est GFR (MDRD) Non-Af 115 BUN/Creatinine Ratio 13.8 Glucose 184 H Calcium 8.8 Troponin T High Sens < 6 Troponin T Hi Sens 2 Hr < 6 Radiography Diagnostic Testing: Clinical Impression(s) from Imaging Studies Chest X-Ray 01/20/25 19:40 IMPRESSION: No airspace consolidation or pleural effusion. Mild cardiomegaly with central vascular congestion. Reading Location: [id number] Discharge Plan Triage Chief Complaint: Syncope ED Provider: Jean-Pierre Harris Dx/Rx/DC Orders Clinical Impression: Near syncope, Chest pain, Dehydration Instructions: ED Chest Pain, Uncertain Cause, ED Dehydration (Adult), ED Near- Fainting, Uncertain Cause Prescriptions: No Action alprazolam 1 mg tablet 1 mg PO ONCE Qty: 1 0RF Rx Instructions: Take 1 tablet orally 30 minutes prior to MRI. buspirone 10 mg tablet 10 mg PO BID Qty: 60 6RF metoprolol succinate 100 mg tablet extended release 24 hr 100 mg PO DAILY Patient Comments: Take 1 tablet by mouth every morning topiramate 25 mg tablet 25 mg PO Q12H Patient Comments: Take 1 tablet by mouth twice a day AM and Bed Primary Care Provider: Rodrigo Sheehan Referrals: Rodrigo Sheehan MD [Primary Care Provider] - 1 Week Activity Restrictions/Additional Instructions: Cardiac workup negative. Your labs are stable. EKG normal. Chest x-ray negative. Increase your oral fluid intake. Follow-up with your doctor. Print Language: [place] Disposition Disposition: Home, Self Care Discharge Date/Time: 01/20/25 22:40
--- NOTE | 2025-01-20 19:38 | PCA ---
no old ekg
--- NOTE | 2025-01-20 19:40 | RAD_ITS ---
PROCEDURE: CHEST PA AND LATERAL 01/20/2025 REASON FOR EXAM: CHEST PAIN TECHNIQUE: CHEST PA AND LATERAL COMPARISON: None. FINDINGS: Lungs/Pleura: Clear. No pneumothorax or pleural effusion. Heart/Mediastinum: Mildly enlarged with central vascular congestion. Bones/Soft tissues: No significant abnormality. RAD/Chest PA and Lateral IMPRESSION: No airspace consolidation or pleural effusion. Mild cardiomegaly with central vascular congestion. Reading Location: [id number]
[2025-01-20 19:48] LABS: Hematocrit 45.9 % (40-54); Hemoglobin 16.2 g/dL (13.0-16.5); Immature Granulocytes Count 0.040 X10^3/uL (0.0-0.0); Mean Corp Hgb Conc 35.3 g/dL (32-36); Mean Corpuscular Volume 84.7 fL (80-94); Mean Platelet Vol. 11.0 fl (6.2-12.0); NRBC Flagged by Analyzer 0 % (0-5); Platelet Count 211 K/mm3 (150-450); RBC Distribution Width CV 12.1 % (11.6-14.6); RBC Distribution Width SD 36.3 fl (35.1-43.9); Red Blood Count 5.42 M/mm3 (4.6-6.2); White Blood Count 9.5 K/mm3 (4.4-11.0)
[2025-01-20] MEDS: 0.9% Normal Saline (1000mL) 1,000 ML 1000 ML IV (19:56)
[2025-01-20 20:19] LABS: Anion Gap 12 (5-15); BUN 13 mg/dL (4-19); BUN/Creat Ratio 13.8 RATIO (10-20); Calcium,Total 8.8 mg/dL (7.6-11.0); Carbon Dioxide 22.3 mmol/L (21.0-32.0); Chloride 105 mmol/L (98-108); Glucose 184 mg/dL (70-99); Potassium 3.9 mmol/L (3.3-5.1)
--- OUTSIDE RECORDS SUMMARY | 2025-01-20 20:28 | XMS RPT_ITS | CCD ---
Author Organization [facility] Care Team Providers Care Software Development Project Manager Name Role Phone Unavailable Primary Care Provider UnavailMARCO ANTONIO Porter Admitting Unavailable PATRICIO GARCIA Attending Unavailable NAVI FORD Consulting Unavailable JR WAY Attending Unavailable Dr. Rodrigo Sheehan Primary Care Provider Jasper BHATTI, DAVY Fierro Attending Provider Dr. Rodrigo Sheehan Referring Provider Unavailable Primary Care Provider Unavailtrey Sheehan MD, Dr. Wallace Primary Care Provider Dr. Rodrigo Sheehan MD Referring Provider Ventura DINH, Dr. Thomas Attending Provider NADYA AYALA Other Provider Ventura DINH, Dr. Thomas Referring Provider Aguila DINH, Dr. Wallace Primary Care Provider Ventura DINH, Dr. Thomas Attending Provider [phone] AKILAH SCOTT Attending Provider AKILAH SCOTT Referring Provider BEN HERNÁNDEZ Referring Unavailable Rodrigo Sheehan Primary Care Unavailable BEN HERNÁNDEZ Attending Unavailable Rodrigo Sheehan Primary Care Unavailable Rodrigo Sheehan Referring Unavailable William Whitehead Attending Unavailable Rodrigo Sheehan Primary Care Unavailable William Whitehead Attending Unavailable William Whitehead Referring Unavailable Rodrigo Sheehan Primary Care Unavailable Rodrigo Sheehan Referring Unavailable William Whitehead Attending Unavailable Rodrigo Sheehan Primary Care Unavailable William Whitehead Attending Unavailable William Whitehead Referring Unavailable BEN HERNÁNDEZ Consulting Unavailable Medications Current Medications Medication Drug Class(es) Dates Sig (Normalized) Sig (Original) ALPRAZolam 1 mg oral tablet (2 sources) Benzodiazepine Start: 02-20-2024 Alprazolam 1 mg tablet Active 1 mg PO ONCE 1 0 February 20, 2024 12:00am Anxiety Anxiety disorder, unspecified Take 1 tablet orally 30 minutes prior to MRI. busPIRone hydrochloride 10 mg oral tablet (6 sources) Start: 08-31-2024 take 1 tablet by mouth twice daily Buspirone 10 mg tablet Active 10 mg PO TWICE A DAY 60 August 31, 2024 12:00am Start: 02-20-2024 End: 08-31-2024 take 1 tablet by mouth twice daily Buspirone 5 mg tablet Discontinued 5 mg PO TWICE A DAY 60 July 30, 2024 10:09am August 31, 2024 10:50am 24 hr metoprolol succinate 100 mg extended release oral tablet (6 sources) beta-Adrenergic Misty Start: 11-30-2022 take 1 tablet by mouth once daily Metoprolol Succinate 100 mg tablet extended release 24 hr Active 100 mg PO DAILY November 30, 2022 12:00am topiramate 25 mg oral tablet (7 sources) Start: 11-30-2022 take 1 tablet by mouth every twelve hours Topiramate 25 mg tablet Active 25 mg PO Q12H November 30, 2022 12:00am topiramate (TOPA MAX) 100 mg tablet Take 100 mg by mouth. 0 Active Comment on above: Take 100 mg by mouth . Completed/Discontinued Medications Medication Drug Class(es) Dates Sig (Normalized) Sig (Original) dexmethylphenidate hydrochloride 10 mg oral tablet (7 sources) Central Nervous System Stimulant Start: 9 End: 4 take 1 tablet by mouth once daily Dexmethylphenidate 10 MG tablet Discontinued 10 mg PO DAILY February 14, 2019 12:00am February 20, 2024 9:14am 12 hr guaiFENesin 600 mg extended release oral tablet (1 source) Start: 3 take 1 tablet by mouth twice daily guaiFENesin (MUCINEX) 600 mg 12 hr tablet Indications: Pharyngitis, unspecified etiology , Viral URI with cough Take 1 tablet by mouth two times a day. 30 tablet 0 04/08/2023 Active Comment on above: Take 1 tablet by daphne two times a day. haloperidol 1 mg oral tablet (7 sources) Typical Antipsychotic Start: 9 End: 4 take 1 tablet by mouth once daily Haloperidol 1 MG tablet Discontinued 1 mg PO DAILY February 14, 2019 12:00am February 20, 2024 9:14am metFORMIN hydrochloride 1000 mg oral tablet (13 sources) Biguanide Start: 3 End: 4 take 1 tablet by mouth twice daily Metformin 1,000 mg tablet Discontinued 1000 mg PO TWICE A DAY November 30, 2022 12:00am February 20, 2024 9:14am Start: 02-14-2019 End: 02-20-2024 take 1 tablet by mouth twice daily Metformin 850 MG tablet Discontinued 850 mg PO TWICE A DAY February 14, 2019 12:00am February 20, 2024 9:14am naproxen 500 mg oral tablet (6 sources) Nonsteroidal Anti-inflammatory Drug Start: 11-30-2022 End: 02-20-2024 take 1 tablet by mouth twice daily Naproxen 500 mg tablet Discontinued 500 mg PO TWICE A DAY 20 0 November 30, 2022 12:00am February 20, 2024 9:14am oxymetazoline hydrochloride 0.5 mg/ml nasal spray (1 source) Start: 04-08-2023 oxymetazoline (AFRIN, OXYMETAZOLINE,) 0.05 % nasal spray Indications: Pharyngitis, unspecified etiology , Viral URI with cough Use 2-3 Sprays in each nostril two times a day. Use as directed. For a maximum of 3 (three) days. 22 mL 0 04/08/2023 Active Comment on above: Use 2-3 Sprays in ea ch nostril two times a day. Use as directed. For a maximum of 3 (three) days. sertraline 100 mg oral tablet (7 sources) Serotonin Reuptake Inhibitor Start: 02-14-2019 End: 02-20-2024 take 1 tablet by mouth once daily Sertraline 100 mg tablet Discontinued 100 mg PO DAILY February 14, 2019 12:00am February 20, 2024 9:14am Problems Active Problems Problem Classification Problem Date Documented Date Episodic/Chronic Abdominal pain (8 sources) Abdominal pain; Translations: [Unspecified abdominal pain] 03-22-2023 Episodic Anxiety disorders (3 sources) Anxiety; Translations: [Anxiety disorder, unspecified] 02-20-2024 Chronic Diabetes mellitus without complication (6 sources) Type 2 diabetes mellitus; Translations: [Type 2 diabetes mellitus without complications] 11-30-2022 Chronic Disorders usually diagnosed in infancy, childhood, or adolescence (6 sources) Autistic disorder; Translations: [Autistic disorder] Onset: 03-22-2022 Chronic Genitourinary symptoms and ill-defined conditions (12 sources) Urine electrolyte levels - finding; Translations: [Hypercalciuria] 11-30-2022 Episodic Impulse control disorders, NEC (2 sources) Intermittent explosive disorder; Translations: [Intermittent explosive disorder] Onset: 03-23-2022 03-23-2022 Chronic Impulse control disorders, NEC (1 source) Homicidal ideations; Translations: [Homicidal ideation] Onset: 03-22-2022 Episodic Lymphadenitis (4 sources) Mesenteric lymphadenitis; Translations: [Nonspecific mesenteric lymphadenitis] 03-22-2023 Episodic Mood disorders (1 source) Bipolar disorder, in full remission, most recent episode hypomanic; Translations: [Bipolar disorder, in full remission, most recent episode hypomanic] Onset: 12-30-2024 Chronic Mood disorders (1 source) Mood disorders; Translations: [Depression with suicidal ideation] Onset: 03-22-2022 Other hereditary and degenerative nervous system conditions (2 sources) Extrapyramidal disease; Translations: [Extrapyramidal and movement disorder, unspecified] 02-20-2024 Chronic Other nervous system disorders (3 sources) Abnormal gait; Translations: [Unspecified abnormalities of gait and mobility] 08-31-2024 Episodic Other upper respiratory infections (2 sources) Pharyngitis; Translations: [Acute pharyngitis, unspecified] 04-08-2023 Episodic Suicide and intentional self-inflicted injury (1 source) Suicidal ideations; Translations: [Depression with suicidal ideation] Onset: 03-22-2022 Episodic Past or Other Problems Problem Classification Problem Date Documented Date Episodic/Chronic Other nervous system disorders (1 source) Unspecified abnormalities of gait and mobility; Translations: [Unspecified abnormalities of gait and mobility] Onset: 05-04-2024 Episodic Results Test Name Value Interpretation Reference Range Facility Absolute lymphocyte counton 12-25-2024 Lymphocytes Auto (Unsp spec) [#/Vol] 2.10 10*3/uL 0.83-4.51 [facility] Absolute neutrophil counton 12-25-2024 Neutrophils (Bld) [#/Vol] 4.6 10*3/uL 2.0-7.7 [facility] Anion gap in Serum or Plasma on 12-25-2024 Anion gap [Moles/Vol] 10 mmol/L 5- [facility] Automated lymphocyte count a s percentage of total leukocyteson 12-25-2024 Lymphocytes/100 WBC Auto (Unsp spec) 28.2 % - [facility] BUN/creatinine ratioon 12-25 Urea nitrogen/Creatinine [Mass ratio] 7.4 mg/mg Low 10- [facility] Basophil percentageon 2024 Basophils/100 WBC (Bld) 0.5 % 0-1 [facility] Bilirubin, totalon Bilirubin [Mass/Vol] 0.40 mg/dL 0.00-1.30 [facility] CBC W/Diff, Automatedon 12-02 Absolute Lymph 2.10 X10 3/uL Normal 0.83-4.51 [facility] Comment on above: Performed By: #### L 3380.1400, L503.0106, L501.9520, L100.0500, L500.4050, L3300.8000, L3100.1725, L503.5510 #### [facility] [address] [place], [address] Absolute Neut 4.6 X10 3/uL Normal 2.0-7.7 [facility] Comment on above: Performed By: #### L 3380.1400, L503.0106, L501.9520, L100.0500, L500.4050, L3300.8000, L3100.1725, L503.5510 #### [facility] [address] [place], [address] Basophils/100 WBC (Bld) 0.5 % Normal 0-1 [facility] Comment on above: Performed By: #### L 3380.1400, L503.0106, L501.9520, L100.0500, L500.4050, L3300.8000, L3100.1725, L503.5510 #### [facility] [address] [place], [address] Eosinophils/100 WBC (Bld) 1.1 % Normal 0-5 [facility] Comment on above: Performed By: #### L 3380.1400, L503.0106, L501.9520, L100.0500, L500.4050, L3300.8000, L3100.1725, L503.5510 #### [facility] [address] [place], [address] Erythrocyte distribution width (RBC) [Ratio] 12.8 % Normal 11.6-14.6 [facility] Comment on above: Performed By: #### L 3380.1400, L503.0106, L501.9520, L100.0500, L500.4050, L3300.8000, L3100.1725, L503.5510 #### [facility] [address] [place], [address] Hematocrit (Bld) [Volume fraction] 48.4 % Normal 40-54 [facility] Comment on above: Performed By: #### L 3380.1400, L503.0106, L501.9520, L100.0500, L500.4050, L3300.8000, L3100.1725, L503.5510 #### [facility] [address] [place], [address] Hemoglobin (Bld) [Mass/Vol] 16.5 g/dL Normal 13.0-16.5 [facility] Comment on above: Performed By: #### L 3380.1400, L503.0106, L501.9520, L100.0500, L500.4050, L3300.8000, L3100.1725, L503.5510 #### [facility] [address] [place], [address] IG% 0.700 Normal 0.0-0.9 [facility] Comment on above: Result Comment: IG% - Immature Granulocytes (promyelocytes, myelocytes and metamyelocytes) > 1% indicates that a LEFT SHIFT is Present. Performed By: #### L 3380.1400, L503.0106, L501.9520, L100.0500, L500.4050, L3300.8000, L3100.1725, L503.5510 #### [facility] [address] [place], [address] Lymphocytes/100 WBC (Bld) 28.2 % Normal 19-41 [facility] Comment on above: Performed By: #### L 3380.1400, L503.0106, L501.9520, L100.0500, L500.4050, L3300.8000, L3100.1725, L503.5510 #### [facility] [address] [place], [address] MCH (RBC) [Entitic mass] 29.6 pg Normal 27.0-32.0 [facility] Comment on above: Performed By: #### L 3380.1400, L503.0106, L501.9520, L100.0500, L500.4050, L3300.8000, L3100.1725, L503.5510 #### [facility] [address] [place], [address] MCHC (RBC) [Mass/Vol] 34.1 g/dL Normal 32-36 [facility] Comment on above: Performed By: #### L 3380.1400, L503.0106, L501.9520, L100.0500, L500.4050, L3300.8000, L3100.1725, L503.5510 #### [facility] [address] [place], [address] MCV (RBC) [Entitic vol] 86.9 fL Normal 80-94 [facility] Comment on above: Performed By: #### L 3380.1400, L503.0106, L501.9520, L100.0500, L500.4050, L3300.8000, L3100.1725, L503.5510 #### [facility] [address] [place], [address] Monocytes/100 WBC (Bld) 7.1 % Normal 0-10 [facility] Comment on above: Performed By: #### L 3380.1400, L503.0106, L501.9520, L100.0500, L500.4050, L3300.8000, L3100.1725, L503.5510 #### [facility] [address] [place], [address] Neutrophils/100 WBC (Bld) 62.4 % Normal 47-70 [facility] Comment on above: Performed By: #### L 3380.1400, L503.0106, L501.9520, L100.0500, L500.4050, L3300.8000, L3100.1725, L503.5510 #### [facility] [address] [place], [address] Nucleated RBC (Bld) [#/Vol] 0 10*3/uL Normal 0-5 [facility] Comment on above: Performed By: #### L 3380.1400, L503.0106, L501.9520, L100.0500, L500.4050, L3300.8000, L3100.1725, L503.5510 #### [facility] [address] [place], [address] Platelet mean volume (Bld) [Entitic vol] 11.3 fL Normal 6.2-12.0 [facility] Comment on above: Performed By: #### L 3380.1400, L503.0106, L501.9520, L100.0500, L500.4050, L3300.8000, L3100.1725, L503.5510 #### [facility] [address] [place], [address] Platelets (Bld) [#/Vol] 206 10*3/uL Normal 150-450 [facility] Comment on above: Performed By: #### L 3380.1400, L503.0106, L501.9520, L100.0500, L500.4050, L3300.8000, L3100.1725, L503.5510 #### [facility] [address] [place], [address] RBC (Bld) [#/Vol] 5.57 10*6/uL Normal 4.6-6.2 [facility] Comment on above: Performed By: #### L 3380.1400, L503.0106, L501.9520, L100.0500, L500.4050, L3300.8000, L3100.1725, L503.5510 #### [facility] [address] [place], [address] RDW SD 39.6 fl Normal 35.1-43.9 [facility] Comment on above: Performed By: #### L 3380.1400, L503.0106, L501.9520, L100.0500, L500.4050, L3300.8000, L3100.1725, L503.5510 #### [facility] [address] [place], [address] WBC (Bld) [#/Vol] 7.4 10*3/uL Normal 4.4-11.0 [facility] Comment on above: Performed By: #### L 3380.1400, L503.0106, L501.9520, L100.0500, L500.4050, L3300.8000, L3100.1725, L503.5510 #### [facility] [address] [place], [address] Calculated very low density lipoprotein (VLDL) cholesterol measurementon 12-25-2024 Calculated very low density lipoprotein (VLDL) cholesterol measurement 22 mg/dL 5-40 [facility] Carbon dioxide, total [Moles /volume] in Central venous bloodon 12-25-2024 CO2 [Moles/Vol] 24.0 mmol/L 21.0-32.0 [facility] Chloride assayon 12-25-2024 Chloride [Moles/Vol] 106 mmol/L 98-108 [facility] Comprehensive Metabolic Prof ilon 12-25-2024 Albumin [Mass/Vol] 4.2 g/dL Normal 3.5-5.0 [facility] Comment on above: Performed By: #### L 3380.1400, L503.0106, L501.9520, L100.0500, L500.4050, L3300.8000, L3100.1725, L503.5510 #### [facility] [address] [place], [address] Albumin/Globulin [Mass ratio] 1.7 {ratio} Normal 0.9-2.4 [facility] Comment on above: Performed By: #### L 3380.1400, L503.0106, L501.9520, L100.0500, L500.4050, L3300.8000, L3100.1725, L503.5510 #### [facility] [address] [place], [address] ALK PHOS 65 U/L Normal 40-129 [facility] Comment on above: Performed By: #### L 3380.1400, L503.0106, L501.9520, L100.0500, L500.4050, L3300.8000, L3100.1725, L503.5510 #### [facility] [address] [place], [address] ALT [Catalytic activity/Vol] 28 U/L Normal <=46 [facility] Comment on above: Performed By: #### L 3380.1400, L503.0106, L501.9520, L100.0500, L500.4050, L3300.8000, L3100.1725, L503.5510 #### [facility] [address] [place], [address] AST [Catalytic activity/Vol] 19 U/L Normal <=37 [facility] Comment on above: Performed By: #### L 3380.1400, L503.0106, L501.9520, L100.0500, L500.4050, L3300.8000, L3100.1725, L503.5510 #### [facility] [address] [place], [address] Bilirubin [Mass/Vol] 0.40 mg/dL Normal 0.00-1.30 [facility] Comment on above: Performed By: #### L 3380.1400, L503.0106, L501.9520, L100.0500, L500.4050, L3300.8000, L3100.1725, L503.5510 #### [facility] [address] [place], [address] BUN/CRE 7.4 RATIO Low 10-20 [facility] Comment on above: Performed By: #### L 3380.1400, L503.0106, L501.9520, L100.0500, L500.4050, L3300.8000, L3100.1725, L503.5510 #### [facility] [address] [place], [address] Calcium [Mass/Vol] 9.0 mg/dL Normal 7.6-11.0 [facility] Comment on above: Performed By: #### L 3380.1400, L503.0106, L501.9520, L100.0500, L500.4050, L3300.8000, L3100.1725, L503.5510 #### [facility] [address] [place], [address] Chloride [Moles/Vol] 106 mmol/L Normal 98-108 [facility] Comment on above: Performed By: #### L 3380.1400, L503.0106, L501.9520, L100.0500, L500.4050, L3300.8000, L3100.1725, L503.5510 #### [facility] [address] [place], [address] CO2 [Moles/Vol] 24.0 mmol/L Normal 21.0-32.0 [facility] Comment on above: Performed By: #### L 3380.1400, L503.0106, L501.9520, L100.0500, L500.4050, L3300.8000, L3100.1725, L503.5510 #### [facility] [address] [place], [address] Creatinine [Mass/Vol] 0.97 mg/dL Normal 0.70-1.20 [facility] Comment on above: Performed By: #### L 3380.1400, L503.0106, L501.9520, L100.0500, L500.4050, L3300.8000, L3100.1725, L503.5510 #### [facility] [address] [place], [address] GAP 10 Normal 5-15 [facility] Comment on above: Performed By: #### L 3380.1400, L503.0106, L501.9520, L100.0500, L500.4050, L3300.8000, L3100.1725, L503.5510 #### [facility] [address] [place], [address] GFR/1.73 sq M.predicted among non-blacks MDRD (S/P/Bld) [Vol rate/Area] 112 mL/min/{1.73_m2} Normal >60 [facility] Comment on above: Result Comment: mL/m in/1.73m2 CKD-EPI Creatinine Equation (2020) Performed By: #### L 3380.1400, L503.0106, L501.9520, L100.0500, L500.4050, L3300.8000, L3100.1725, L503.5510 #### [facility] [address] [place], [address] Globulin (S) [Mass/Vol] 2.4 g/dL Normal 2.2-4.2 [facility] Comment on above: Performed By: #### L 3380.1400, L503.0106, L501.9520, L100.0500, L500.4050, L3300.8000, L3100.1725, L503.5510 #### [facility] [address] [place], [address] Glucose [Mass/Vol] 150 mg/dL High 70-99 [facility] Comment on above: Performed By: #### L 3380.1400, L503.0106, L501.9520, L100.0500, L500.4050, L3300.8000, L3100.1725, L503.5510 #### [facility] [address] [place], [address] Potassium [Moles/Vol] 4.2 mmol/L Normal 3.3-5.1 [facility] Comment on above: Performed By: #### L 3380.1400, L503.0106, L501.9520, L100.0500, L500.4050, L3300.8000, L3100.1725, L503.5510 #### [facility] [address] [place], [address] Sodium [Moles/Vol] 140 mmol/L Normal 133-145 [facility] Comment on above: Performed By: #### L 3380.1400, L503.0106, L501.9520, L100.0500, L500.4050, L3300.8000, L3100.1725, L503.5510 #### [facility] [address] [place], [address] T PROT 6.6 g/dL Normal 5.9-8.4 [facility] Comment on above: Performed By: #### L 3380.1400, L503.0106, L501.9520, L100.0500, L500.4050, L3300.8000, L3100.1725, L503.5510 #### [facility] [address] [place], [address] Urea nitrogen [Mass/Vol] 7 mg/dL Normal 4-19 [facility] Comment on above: Performed By: #### L 3380.1400, L503.0106, L501.9520, L100.0500, L500.4050, L3300.8000, L3100.1725, L503.5510 #### [facility] [address] [place], [place], [address] [phone] Eosinophil percentageon 12-02 Eosinophils/100 WBC (Bld) 1.1 % 0-5 [facility] Erythrocyte distribution wid th ratioon 12-25-2024 Erythrocyte distribution width (RBC) [Ratio] 12.8 % 11.6-14.6 [facility] Erythrocyte distribution wid th standard deviationon 12-25-2024 Erythrocyte distribution width (RBC) [Ratio] 39.6 fl 35.1-43.9 [facility] Glomerular filtration rate ( GFR) estimation/1.73 sq m using serum, plasma, or whole bon 12-25-2024 GFR/1.73 sq M.predicted among non-blacks MDRD (S/P/Bld) [Vol rate/Area] 112 mL/min/{1.73_m2} >60 [facility] Comment on above: mL/min/1.73m2 CKD-EP I Creatinine Equation (2020) Hematocrit Auto (Bld) [Volum e fraction]on 12-25-2024 Hematocrit (Bld) [Volume fraction] 48.4 % 40-54 [facility] Hemoglobin A1con 12-25-2024 HbA1c (Bld) [Mass fraction] 6.1 % High <=5.6 [facility] Comment on above: Result Comment: Norm al < 5.7 % Prediabetic 5.7 - 6.4 % Diabetic >or= 6.5 % Please note range changes. Performed By: #### L 3380.1400, L503.0106, L501.9520, L100.0500, L500.4050, L3300.8000, L3100.1725, L503.5510 #### [facility] [address] [place], [address] Hemoglobin A1c percentageon 12-25-2024 HbA1c (Bld) [Mass fraction] 6.1 % High <5.7 [facility] Comment on above: Normal < 5.7 % Predi abetic 5.7 - 6.4 % Diabetic >or= 6.5 % Please note range changes. Hemoglobin measurementon Hemoglobin (Bld) [Mass/Vol] 16.5 g/dL 13.0-16.5 [facility] Immature granulocytes/100 WB C Auto (Bld)on 12-25-2024 Immature granulocytes/100 WBC (Bld) 0.700 % 0.0-0.9 [facility] Comment on above: IG% - Immature Granu locytes (promyelocytes, myelocytes and metamyelocytes) > 1% indicates that a LEFT SHIFT is Present. LDL calc ser/plason 12-26-19 25 Cholesterol in LDL [Mass/Vol] 93 mg/dL [facility] Comment on above: Dgpeqocnym=549-506 m g/dL & Higher Ielk=304 mg/dL or greater Laboratory - Chemistry and C hemistry - challengeon 12-25-2024 AST [Catalytic activity/Vol] 19 U/L <38 [facility] Lipid Profileon 12-25-2024 CHOL:HDL 4.79 Normal [facility] Comment on above: Performed By: #### L 3380.1400, L503.0106, L501.9520, L100.0500, L500.4050, L3300.8000, L3100.1725, L503.5510 #### [facility] [address] [place], [address] Cholesterol [Mass/Vol] 146 mg/dL Normal <=190 [facility] Comment on above: Result Comment: Chol esterol level, Desirable <200 mg/dL Borderline high cholesterol 200-239 mg/dL High cholesterol >=240 mg/dL Recommendations of the NCEP Adult Treatment Panel for the following risk-cutoff thresholds for the [place] population. Performed By: #### L 3380.1400, L503.0106, L501.9520, L100.0500, L500.4050, L3300.8000, L3100.1725, L503.5510 #### [facility] [address] [place], [address] Cholesterol in HDL [Mass/Vol] 31 mg/dL Low [facility] Comment on above: Result Comment: Brandi onal Cholesterol Education Program (NCEP) guidelines: <40 mg/dL: Low HDL-cholesterol (major risk factor for CHD) >= 60 mg/dL: High HDL-cholesterol (negative risk factor for CHD) HDL-cholesterol is affected by a number of factors, e.g. smoking, exercise, hormones, sex and age. Performed By: #### L 3380.1400, L503.0106, L501.9520, L100.0500, L500.4050, L3300.8000, L3100.1725, L503.5510 #### [facility] [address] [place], [address] Cholesterol in LDL [Mass/Vol] 93 mg/dL Normal [facility] Comment on above: Result Comment: Bord hibzhd=127-535 mg/dL Higher Ptmx=095 mg/dL or greater Performed By: #### L 3380.1400, L503.0106, L501.9520, L100.0500, L500.4050, L3300.8000, L3100.1725, L503.5510 #### [facility] [address] [place], [address] Cholesterol in VLDL [Mass/Vol] 22 mg/dL Normal 5-40 [facility] Comment on above: Performed By: #### L 3380.1400, L503.0106, L501.9520, L100.0500, L500.4050, L3300.8000, L3100.1725, L503.5510 #### [facility] [address] [place], [place], [id number] Triglyceride [Mass/Vol] 112 mg/dL Normal [facility] Comment on above: Result Comment: The drugs N-Acetylcysteine and Metamizole may falsely depress this assay. Normal range: <150 mg/dL Borderline High: 150-199 mg/dL High: 200-499 mg/dL Very High: >500 mg/dL Performed By: #### L 3380.1400, L503.0106, L501.9520, L100.0500, L500.4050, L3300.8000, L3100.1725, L503.5510 #### [facility] [address] [place], [address] MCV (mean corpuscular volume ) determinationon 12-25-2024 MCV (RBC) [Entitic vol] 86.9 fL 80-94 [facility] Mean corpuscular hemoglobin (MCH) determinationon 12-25-2024 MCH (RBC) [Entitic mass] 29.6 pg 27.0-32.0 [facility] Mean corpuscular hemoglobin concentration (MCHC) determinationon 12-25-2024 MCHC (RBC) [Mass/Vol] 34.1 g/dL 32-36 [facility] Mean platelet volume determi nationon 12-25-2024 Platelet mean volume (Bld) [Entitic vol] 11.3 fL 6.2-12.0 [facility] Monocyte percentageon 2024 Monocytes/100 WBC (Bld) 7.1 % 0-10 [facility] Neutrophil percentageon 12-02 Neutrophils/100 WBC (Bld) 62.4 % 47-70 [facility] Nucleated red blood cell per centageon 12-25-2024 Nucleated RBC/100 WBC (Bld) [Ratio] 0 % 0-5 [facility] Platelet counton 12-25-2024 Platelets (Bld) [#/Vol] 206 10*3/uL 150-450 [facility] Potassium measurement (mass/ volume)on 12-25-2024 Potassium (Unsp spec) [Mass/Vol] 4.2 mmol/L 3.3-5.1 [facility] RBC Auto (Bld) [#/Vol]on RBC (Bld) [#/Vol] 5.57 10*6/uL 4.6-6.2 [facility] Screening total cholesterol/ high density lipoprotein (HDL) cholesterol ratioon 12-25-2024 Cholesterol.total/Choles terol in HDL [Mass ratio] 4.79 {ratio} [facility] Serum creatinine measurement (mass/volume)on 12-25-2024 Creatinine [Mass/Vol] 0.97 mg/dL 0.70-1.20 [facility] Serum globulin measurementon 12-25-2024 Globulin (S) [Mass/Vol] 2.4 g/dL 2.2-4.2 [facility] Serum glucose measurement (m ass/volume)on 12-25-2024 Glucose [Mass/Vol] 150 mg/dL High 70-99 [facility] Serum or plasma alanine deutsch otransferase (ALT) measurementon 12-25-2024 ALT [Catalytic activity/Vol] 28 U/L <47 [facility] Serum or plasma albumin yasmin urement (mass/volume)on 12-25-2024 Albumin [Mass/Vol] 4.2 g/dL 3.5-5.0 [facility] Serum or plasma albumin/glob ulin mass ratioon 12-25-2024 Albumin/Globulin [Mass ratio] 1.7 {ratio} 0.9-2.4 [facility] Serum or plasma alkaline ayaka sphatase measurementon 12-25-2024 ALP [Catalytic activity/Vol] 65 U/L 40-129 [facility] Serum or plasma calcium yasmin urement (mass/volume)on 12-25-2024 Calcium [Mass/Vol] 9.0 mg/dL 7.6-11.0 [facility] Serum or plasma cholesterol in HDL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 sounds normal. No respiratory distress. Exhibits no deformity. Abdominal: Soft. Bowel sounds are normal. He exhibits no distension and no mass. There is no hepatosplenomegaly. There is no abdominal tenderness. Genitourinary: Did not examine. Genitourinary Comments: Patient refused genitalia exam Musculoskeletal: Cervical back: Normal range of motion and neck supple. General: Normal range of motion. Comments: Right big toe with well healed scar. Mild discomfort with palpation. Good circulation and sensation. No erythema or warmth. Neurological: He is alert. He has normal strength. He exhibits normal muscle tone. Gait normal. Skin: Skin is warm. Skin is not pale. Findings: No rash. Vitals reviewed: Blood pressure 136/65, pulse 84, height 175.8 cm, weight (!) 114.4 kg. Normal [facility] Vital Signs Date Time Vital Sign Value Performing Clinician Sreedhar martinez 08-31-2024 10:13040 Body height 177.[address] Rodrigo Sheehan MD Work Phone: [facility] 08-31-2024 10:13040 Body mass index (BMI) [Ratio] 40.3 kg/m2 Dr. Rodrigo Sheehan MD Work Phone: [facility] 08-31-2024 10:040 Body temperature 98.6 [degF] Dr. Rodrigo Sheehan MD Work Phone: [facility] 08-31-2024 10:13040 Body weight 127.[address] Rodrigo Sheehan MD Work Phone: [facility] 08-31-2024 10:13040 Diastolic blood pressure 64 mm[Hg] Dr. Rodrigo Sheehan MD Work Phone: [facility] 08-31-2024 10:13-0400 Heart rate 68 /min Dr. Rodrigo Sheehan MD Work Phone: [facility] 08-31-2024 10:13-0400 Respiratory rate 16 /min Dr. Rodrigo Sheehan MD Work Phone: [facility] 08-31-2024 10:13-0400 SaO2% (BldA) [Mass fraction] 98 % Dr. Rodrigo Sheehan MD Work Phone: [facility] 08-31-2024 10:13-0400 Systolic blood pressure 96 mm[Hg] Dr. Rodrigo Sheehan MD Work Phone: [facility] 04-08-2023 16:14-0500 Body temperature 97.2 [degF] Frances Ball THERMOMETER TESTER.HANDBAG DESIGNER Work Phone: [facility] 04-08-2023 16:14-0500 Body weight 117.94 kg Frances Ball THERMOMETER TESTER.HANDBAG DESIGNER Work Phone: [facility] 04-08-2023 16:14-0500 Diastolic blood pressure 62 mm[Hg] Frances Ball THERMOMETER TESTER.HANDBAG DESIGNER Work Phone: [facility] 04-08-2023 16:14-0500 Heart rate 82 /min Frances Ball THERMOMETER TESTER.HANDBAG DESIGNER Work Phone: [facility] 04-08-2023 16:14-0500 SaO2% (BldA) [Mass fraction] 99 % Frances Ball THERMOMETER TESTER.HANDBAG DESIGNER Work Phone: [facility] 04-08-2023 16:14-0500 Systolic blood pressure 93 mm[Hg] Frances Ball THERMOMETER TESTER.HANDBAG DESIGNER Work Phone: [facility] 03-22-2023 15:40-0400 Diastolic blood pressure 76 mm[Hg] Dr. Rodrigo Sheehan Work Phone: [facility] 03-22-2023 15:40-0400 Heart rate 80 /min Dr. Rodrigo Sheehan Work Phone: [facility] 03-22-2023 15:40-0400 Respiratory rate 16 /min Dr. Rodrigo Sheehan Work Phone: [facility] 03-22-2023 15:40-0400 Systolic blood pressure 138 mm[Hg] Dr. Rodrigo Sheehan Work Phone: [facility] 03-22-2023 12:09-0400 Body height 177.[address] Rodrigo Sheehan Work Phone: [facility] 03-22-2023 12:09-0400 Body mass index (BMI) [Ratio] 37 kg/m2 Dr. Rodrigo Sheehan Work Phone: [phone] [place] [address] 03-22-2023 12:09-0400 Body temperature 96.4 [degF] Dr. Rodrigo Sheehan Work Phone: [facility] 03-22-2023 12:09-0400 Body weight 117.[address] Rodrigo Sheehan Work Phone: [phone] [place] [address] 03-22-2023 12:09-0400 SaO2% (BldA) [Mass fraction] 99 % Dr. Rodrigo Sheehan Work Phone: [phone] [place] [address] 03-20-2023 10:27-0400 Body mass index (BMI) [Ratio] 36.4 kg/m2 Dr. Rodrigo Sheehan Work Phone: [phone] [place] [address] 03-20-2023 10:27-0400 Body temperature 98.4 [degF] Dr. Rodrigo Sheehan Work Phone: [facility] 03-20-2023 10:27-0400 Body weight 115.[address] Rodrigo Sheehan Work Phone: [facility] 03-20-2023 10:27-0400 Diastolic blood pressure 78 mm[Hg] Dr. Rodrigo Sheehan Work Phone: [facility] 03-20-2023 10:27-0400 Heart rate 88 /min Dr. Rodrigo Sheehan Work Phone: [facility] 03-20-2023 10:27-0400 Respiratory rate 19 /min Dr. Rodrigo Sheehan Work Phone: [facility] 03-20-2023 10:27-0400 SaO2% (BldA) [Mass fraction] 94 % Dr. Rodrigo Sheehan Work Phone: [facility] 03-20-2023 10:27-0400 Systolic blood pressure 121 mm[Hg] Dr. Rodrigo Sheehan Work Phone: [facility] 11-30-2022 23:37-0400 Diastolic blood pressure 64 mm[Hg] [facility] 11-30-2022 23:37-0400 Heart rate 75 /min [facility] 11-30-2022 23:37-0400 Respiratory rate 18 /min [facility] 11-30-2022 23:37-0400 SaO2% (BldA) [Mass fraction] 100 % [facility] 11-30-2022 23:37-0400 Systolic blood pressure 135 mm[Hg] [facility] 11-30-2022 21:43-0400 Body mass index (BMI) [Ratio] 36.4 kg/m2 [facility] 11-30-2022 21:43-0400 Body weight 111.7 kg [facility] 11-30-2022 21:37-0400 Body height 175.26 cm [facility] 11-30-2022 21:37-0400 Body temperature 97.6 [degF] [facility] 07-21-2021 23:02-0500 Respiratory rate 15 /min [facility] Work Phone: 07-21-2021 20:00-0500 Body height 177.8 cm [facility] Work Phone: 07-21-2021 20:00-0500 Body mass index (BMI) [Ratio] 30.1 kg/m2 [facility] Work Phone: 07-21-2021 20:00-0500 Body temperature 96.8 [degF] [facility] Work Phone: 07-21-2021 20:00-0500 Body weight 95.25 kg [facility] Work Phone: 07-21-2021 20:00-0500 Diastolic blood pressure 86 mm[Hg] [facility] Work Phone: 07-21-2021 20:00-0500 Heart rate 92 /min [facility] Work Phone: 07-21-2021 20:00-0500 SaO2% (BldA) [Mass fraction] 97 % [facility] Work Phone: 07-21-2021 20:00-0500 Systolic blood pressure 146 mm[Hg] [facility] Work Phone: Encounters Encounter Date Encounter Type Care Provider Facility Start: 12-25-2024 End: 12-25-[address] Rodrigo Sheehan MD Work Phone: -Laboratory Start: 12-25-2024 End: 12-25-[address] Rodrigo Sheehan MD Work Phone: -Laboratory Work Phone: Start: 12-25-2024 End: 12-25-2024 ambulatory [facility] Facility:[facility] Start: 09-07-2024 End: 09-07-[address] Rodrigo Sheehan MD Work Phone: [facility] Work Phone: Start: 09-07-2024 End: 09-07-[address] William Whitehead MD -Laboratory Work Phone: Start: 09-07-2024 End: 09-07-2024 ambulatory Rodrigo Sheehan Facility:[facility] Start: 08-31-2024 End: 08-31-[address] William Whitehead MD -[facility] Work Phone: Start: 08-31-2024 End: 08-31-2024 ambulatory Rodrigo Sheehan Facility:[facility] Start: 04-08-2024 End: 04-08-2024 ambulatory Rodrigo Sheehan Facility:[facility] Start: 02-20-2024 End: 02-20-2024 ambulatory Rodrigo Sheehan Facility:[facility] Start: 04-08-2023 End: 04-08-2023 ambulatory Facility:[facility] Start: 04-08-2023 End: 04-08-2023 Office outpatient new 20 minutes Frances Mcgovern APRN.CNP Work Phone: [facility] Comment on above: Pharyngitis, unspeci fied etiology (Primary Dx); Viral URI with cough Start: 03-22-2023 End: 03-22-2023 Emergency department patient visit Dr. Rodrigo Sheehan Work Phone: [facility]Emergency Department Work Phone: Start: 03-20-2023 Non-patient / Non-visit Dr. Davy Sheehan Work Phone: [facility] Start: 03-20-2023 End: 03-20-[address] Rodrigo Sheehan Work Phone: [facility] Work Phone: Start: 03-20-2023 End: 03-20-[address] Rodrigo Sheehan Work Phone: [facility] Work Phone: Start: 01-19-2023 End: 01-19-2023 ambulatory [facility] Work Phone: Start: 01-19-2023 End: 01-19-2023 Patient encounter procedure [facility]-Laboratory Work Phone: Start: 11-30-2022 End: 11-30-2022 Emergency department patient visit [facility]Emergency [facility] Work Phone: Start: 09-21-2022 Emergency department patient visit Facility:[facility] Start: 03-23-2022 End: 03-27-2022 Evaluation and management of inpatient MARCO ANTONIO NINO Facility:[facility] Start: 03-22-2022 End: 03-23-2022 Emergency department patient visit [address] Facility:[facility] Start: 03-22-[address] [facility] Sergei Harp [facility] Work Phone: [facility] Start: 03-22-2022 ambulatory Sergei CARRASQUILLO Work Phone: Behavioral Health Intake Comment on above: Behavioral Problem Start: 09-09-2021 End: 09-09-2021 Patient encounter procedure [facility]-Laboratory Start: 07-21-2021 End: 07-22-2021 Emergency department patient visit [facility]-Emergency Department Procedures Date Procedure Procedure Detail Performing Clinician Start: 09-07-2024 Folic acid measureme nt, RBC Dr. Rodrigo Sheehan MD Work Phone: Start: 04-08-2023 STREP A MOLECULAR (POC) [facility] Provider Start: 03-22-2023 Computed tomography of abdomen and pelvis with intravenous contrast Dr. Rodrigo Sheehan Work Phone: Start: 03-20-[address] Rodrigo Sheehan Work Phone: Start: 11-30-2022 Urine culture Start: 09-09-2021 Urine culture Plan of Treatment Date Care Activity Detail Author Start: 09-07-2024 Folic acid measurement, RBC [facility] Start: 09-07-2024 Thiamine measurement [facility] Start: 09-07-2024 Topiramate [Mass/volume] in Serum or Plasma [facility] Start: 12-26-2023 Urine microalbumin profile DTaP,Tdap,Td Vaccine (7 - Td or Tdap) [facility] Start: 03-22-2023 [facility] Start: 03-20-2023 Chlamydia deoxyribonucleic acid detection [facility] Start: 02-01-2023 Covid-19 Vaccine ( season) Covid-19 Vaccine ( season) [facility] Start: 02-01-2023 Influenza vaccination Influenza Vaccine (#1) [facility] Start: 11-30-2022 [facility] Start: 11-30-2022 Chlamydia deoxyribonucleic acid detection [facility] Start: 06-03-2022 Depression Assessment Depression Assessment [facility] Start: 02-01-2022 Influenza vaccination INFLUENZA (#1) [facility] Start: 06-03-2021 DEPRESSION ASSESSMENT DEPRESSION ASSESSMENT [facility] Start: 10-13-2020 COVID-19 VACCINE (3 - Booster for Pfizer series) COVID-19 VACCINE (3 - Booster for Pfizer series) [facility] Start: 2020 Urine microalbumin profile DTAP,TDAP,TD (1 - Tdap) [facility] Start: 2019 HEPATITIS C SCREENING HEPATITIS C SCREENING [facility] Start: 2019 HIV SCREENING HIV SCREENING [facility] Start: 2017 Meningococcal B Vaccine: Consider Based On Risk (1 of 2 - Patient Seeks Protection) Meningococcal B Vaccine: Consider Based On Risk (1 of 2 - Patient Seeks Protection) [facility] Start: 2015 PEDS TO ADULT TRANSITION ANNUAL ASSESSMENT PEDS TO ADULT TRANSITION ANNUAL ASSESSMENT [facility] Start: 2013 PEDS TO ADULT TRANSITION INITIAL DISCUSSION PEDS TO ADULT TRANSITION INITIAL DISCUSSION [facility] Start: 2012 HPV VACCINE (1 - Male 2-dose series) HPV VACCINE (1 - Male 2-dose series) [facility] Start: 2001 HEPATITIS B (1 of 3 - 3-dose series) HEPATITIS B (1 of 3 - 3-dose series) [facility] Hematocrit [Volume Fraction] of Blood [facility] Neisseria gonorrhoea e rRNA [Presence] in Unspecified specimen by JOSEFINA with probe detection [facility] Neisseria gonorrhoea e rRNA [Presence] in Unspecified specimen by JOSEFINA with probe detection [facility] Patient Education [facility] Work Phone: Patient referral [facility] Work Phone: PCR test for Chlamyd ia trachomatis [facility] PCR test for Chlamyd ia trachomatis [facility] Immunizations Immunization Date Immunization Notes Care Provider Zee jacobsen 05-22-2017 influenza virus vacc ine, unspecified formulation Frances Mcgovern THERMOMETER TESTER.HANDBAG DESIGNER Work Phone: [facility] Payers Date Payer Category Payer Self-pay [id number] 2022 Unknown [id number] 2021 Medicaid [id number] 2021 Unknown [id number] Unknown [id number] Unknown [id number] Unknown [id number] Unknown [id number] Unknown [id number] Social History Date Type Detail Facility Start: 07-21-2021 End: 03-22-2023 Tobacco smoking status [facility] Unknown if ever smoked [facility] Start: 2000 Sex Assigned At Male [facility] Start: 03-22-2022 End: 08-28-2023 Tobacco smoking status [facility] Never smoked tobacco [facility] Start: 03-22-2022 End: 09-21-2022 Tobacco use and exposure Smokeless tobacco non-user [facility] Start: 03-22-2022 End: 04-08-2023 Alcohol intake Lifetime non-drinker (finding) [facility] Start: 2000 Sex Assigned At Not on file [facility] Start: 03-12-2022 End: 03-22-2022 Exposure to SARS-CoV-2 (event) Not sure [facility] Start: 04-08-2023 History of Social function [facility] Start: 04-08-2023 Tobacco use panel [facility] National Score (1-100), lower number is lower risk 76 [facility] Start: 09-11-2024 Sex Male (finding) [facility] Clinical Notes 03-22-2022 to 08-31-2024 Note Date & Type Note Facility 08-31-2024 Evaluation note Diagnosis Onset Date Resolution Anxiety acute August 31 10:08am Tourette syndrome acute August 032024 10:08am Abnormal gait resolved August 31, 2024 10:08am [facility] Work Phone: 1(983) 620-701411-06-2023 NoteHNO ID: [id number] Author: Frances Mcgovern APRN.HANDBAG DESIGNER Service: ? Author Type: Nurse Practitioner Type: Progress Notes Filed: 04/08/2023 4:39 PM Note Text: This note was created using NoteWriter. Subjective Jayden Blackmon is a 22 year [...] HR - OXYMETAZOLINE 0.05 % NASAL SPRAY Frances Mcgovern APRN.CNP Medical Decision Making: Problems: Moderate: New problem with uncertain prognosis Data: Unique test(s) ordered: 1 Risk: Moderate: Drug management Medical Decision Making [facility]: [facility]* Patient Instructions* Frances Mcgovern APRN.CNP - 04/08/2023 4:23 PM EST UPPER [...] while you are sick so you don't bean picker a different virus, or infect others. 8. Avoid exposure to cigarettes or fumes. 9. Avoid irritants such as potpourri, dust, perfumes, scented candles and scented sprays 10. Air conditioning is an effective allergen and irritant avoidance strategy in the spring, summerand fall. 11. Honey is an effective cough suppressant. Try one tsp two to three times per day. The below information is from prescribersClinicienter.Tip Network: Antibiotics Will rarely help an upper respiratory infections. Antibiotics lead to more resistant infections that are harder to treat. There is little to no benefit to taking antibiotics for most acute upper respiratory tract infections. [facility] History of Present illness Narrative* Frances Mcgovern APRN.CNP - 04/08/2023 4:19 PM EST This note was created using Evin[employer] Innovationriter. Subjective Jayden Blackmon is a 22 year [...] COVID-19 original vaccine, age 12+ yr, monovalent (PrePlay[employer]: [employer] - PURPLE TOP) 07/28/2020 Imm Admin: COVID-19 original vaccine, age 12+ yr, monovalent ([employer] - PURPLE TOP) Sick contacts: no Smoking [...] HR - OXYMETAZOLINE 0.05 % NASAL SPRAY Frances Mcgovern APRN.NORA Medical Decision Making: Problems: Moderate: New problem with uncertain prognosis Data: Unique test(s) ordered: 1 Risk: Moderate: Drug management Medical Decision Making Level: 4 - Moderate [facility] Discharge summary Author Jose Fish [facility] November 30, 2022 11:20pm Note Date/Time November 30, 2022 9:57 pm [facility] Medical Records Department [address] [place] [address] Emergency Department Summary 11/30/22 MR#: [id number] Acct: [id number] Name: JAYDEN BLACKMON Rep #:[id number] : 2000 22 From: Jose Fish MD PCP: Dr. Rodrigo Sheehan MD Status:REG E R Location: ED HPI History of Present Illness Chief Complaint: Complaint Informant: patient and parent Narrative Narrative: Patient complains of some burning when he urinates for the last day and a half. It sounds like his outputs been normal. He has no difficulty urinating. No nausea vomiting abdominal pain back pain flank pain or change in bowel habits. No fevers or chills. No eye pain itching or discharge. No joint pain. He has no penile discharge. He has no testicular pain. He has not had this before. He does state that the urine is darker than normal but he has no back or flank pain or history of kidney stones. Nothing really makes this better or worse. [facility] Medical History ADHD Anxiety Autism Depression Diabetes Home Medications dexmethylphenidate 10 mg tablet 10 mg PO DAILY 02/14/19 [History Last Taken Unknown] haloperidol 1 mg tablet 1 mg PO DAILY 02/14/19 [History Last Taken Unknown] metformin 850 mg tablet 850 mg PO BID 02/14/19 [History Last Taken Unknown] sertraline 100 mg tablet 100 mg PO DAILY 02/14/19 [History Last Taken Unknown] metformin 1,000 mg tablet 1,000 mg PO BID 11/30/22 [History Last Taken 11/30/22] metoprolol succinate 100 mg tablet,extended release 24 hr 100 mg PO DAILY 11/30/22 [History Last Taken 11/30/22] naproxen 500 mg tablet 500 mg PO BID #20 tabs 11/30/22 [Rx Last Taken Unknown] topiramate 25 mg tablet 25 mg PO Q12H 11/30/22 [History Last Taken Unknown] Allergy/AdvReac Type Severity Reaction Status Date / Time No Known Allergies Allergy Verified 07/21/21 20:59 Social History Smoking Status: Never smoker ROS ROS ED ROS Narrative A complete review of systems was performed and is negative except as documented in the history of present illness. Some specific details below. Constitutional: No recent fevers or chills. EYE: No visual complaints or pain. No itching or burning. ENT: No difficulty swallowing. No swelling. No pain. No thrush CV: No chest pain or palpitations. Respiratory: No dyspnea. No hemoptysis. No difficulty taking breaths. GI: No nausea vomiting abdominal pain back pain flank pain or diarrhea. : See history of present illness. Musculoskeletal: No recent trauma. No pains. Including no pains in his back. Skin: No rash. Nondiaphoretic. Neuro: No weakness or numbness. Endocrine: No polyuria or polydipsia. He does have a history of prediabetes but is on metformin 1000 mg twice a day. EXAM Physical Exam Narrative Exam Narrative: CONSTITUTIONAL: Patient is nontoxic in appearance. The patient looks comfortable. HEENT: No notable trauma. Mucous membranes moist. EYES: No conjunctival injection. No proptosis. No discharge CARDIOVASCULAR: Regular rate. Regular rhythm. No notable murmur. No JVD. RESPIRATORY: No respiratory distress. Breathing is unlabored. No wheezes. No rhonchi. No rales. No pain with a deep breath. GASTROINTESTINAL: Not distended. Bowel sounds are normal. No tenderness. No guarding. No rebound. No palpable mass. No bruit. Abdomen is completely benign GENITOURINARY: No tenderness over the bladder. No CVA tenderness. No testiculartenderness or enlargement. No inguinal mass tenderness or hernia. No inguinal or penile sores. No penile discharge. Overall external exam is normal. MUSCULOSKELETAL: Atraumatic. NEUROLOGICAL: Patient is alert and appropriate. No focal deficit noted. SKIN: No noted rashes. No diaphoresis. PSYCHIATRIC: Patient is calm. Mood is appropriate. Const Vital Signs: 11/30/22 21:37 Temperature 97.6 F L Temperature Source Temporal Pulse Rate 82 Respiratory Rate 16 Blood Pressure 133/71 H Blood Pressure Mean 91 Pulse Ox 99 Oxygen Delivery Method Room Air MDM MDM MDM Narrative Medical decision making narrative: Blood glucose is reasonably well controlled at 135 when checked here. Urinalysis shows only 0-5 white cells. No nitrites. There was a small amount of ketones. There was a rare calcium oxalate crystal. This brings into question could this be a kidney stone. I talked with the patient. He is not having pain in the abdomen flank or back. He has never had nausea or vomiting. He only has dysuria. He now does state that sometimes he has pain kind of in the lower pelvis when he stands up or moves but not all the time. This has beengoing on about a day or day and a half. It sounds like his dad did have kidney stones but he has never had 1. We discussed doing blood work and doing CAT scanof the abdomen. But this patient is extremely comfortable. He is sitting on the bed comfortable on his phone. I think it is reasonable to have him drink fluids as he has no nausea or vomiting is not had at any point. I told him he should drink water until the urine is pale yellow. He does not need to make it clear. We will get him some Naprosyn that I think will help for his pain. If he passes a small stone he should try to save that. I explained what they wouldlook like and the likely size. If he still having symptoms after a few days to the week or if he develops pain, nausea vomiting, fevers or other symptoms he should return and we will do further imaging and evaluation at that point. Lab Data Attestation: I reviewed the patient's lab results. Labs: Laboratory Results - last 24 hr 11/30/22 11/30/22 22:05 22:07 Urine Color Yellow Urine Clarity Sl. Cloudy Urine pH 6.0 Ur Specific Canadian 1.025 Urine Protein 30 H Urine Glucose (UA) Normal Urine Ketones 5 H Urine Occult Blood Negative Urine Nitrite Negative Urine Bilirubin 1 H Urine Urobilinogen 1 H Ur Leukocyte Esterase 25 H Urine RBC 0 SEEN Urine WBC 0-5 SEEN Ur Squamous Epith Cells 0-5 SEEN Calcium Oxalate Crystal RARE Amorphous Sediment 1+ URATE Urine Bacteria 0 SEEN Urine Mucus 0 SEEN POC Glucose 135 H Discharge Plan Triage Chief Complaint: Complaint ED Provider: Jose Fish Dx/Rx/DC Orders Clinical Impression: Dysuria, Diabetes type 2, controlled, Calciuria Instructions: Kidney Stones Expectant Tx Prescriptions: New naproxen 500 mg tablet 500 mg PO BID Qty: 20 0RF No Action sertraline 100 mg tablet 100 mg PO DAILY Patient Comments: Take 1 tablet by mouth at bedtime metformin 850 MG tablet 850 mg PO BID haloperidol 1 MG tablet 1 mg PO DAILY dexmethylphenidate 10 MG tablet 10 mg PO DAILY metformin 1,000 mg tablet 1,000 mg PO BID Patient Comments: Take 1 tablet by mouth twice a day as directed Take 1 tab with Breakfast & 1 tab with Dinner. metoprolol succinate 100 mg tablet extended release 24 hr 100 mg PO DAILY Patient Comments: Take 1 tablet by mouth every morning topiramate 25 mg tablet 25 mg PO Q12H Patient Comments: Take 1 tablet by mouth twice a day AM and Bed Primary Care Provider: Rodrigo Sheehan Referrals: Rodrigo Sheehan MD [Primary Care Provider] - 1-2 Days if not improving Activity Restrictions/Additional Instructions: Drink water to make your urine pale yellow. Return with pain, vomiting, fevers or other concerns. Disposition Disposition: Home, Self Care What to do if you have Problems For any increased pain, shortness of breath, bleeding, nausea or vomiting, chestpain, or any unexpected problems, contact your Primary Care Provider. Call [facility] ([phone]) or report to the closest Emergency Room. Call 911 if necessary. 11/30/222319 <Electronically signed by Jose Fish MD> Cosigner Signature (if applicable): CC: Dr. Rodrigo Sheehan MD ~ Signed [facility] Work Phone: 1(445) 454-639710-25-2022 NoteHNO ID: [id number] Author: SANDEEP Carvajal Service: Care Management Author Type: Instructor Business Education Type: Care Mgt Progress Note Filed: 03/27/2022 1:11 PM Note Text: BEHAVIORAL HEALTH SOCIAL WORK DISCHARGE NOTE SERVICE DATE: 03/27/2022 SERVICE TIME: 1:08 pm Discharge Information Row Name Admission (Discharged) from 03/23/[address] STRESS MANAGEMENT Psychiatry Follow-Up Appointment Psychiatrist Name Dr Ayala Agency -- [facility] [address] , [place] [address] Appointment Date 04/18/22 Appointment Time 11:00 am Additional Instructions Appt is virtual Psychiatry Follow-Up Appointment Additional Instructions PT NEEDS APPT FOR FOLLOW UP INJECTION Counselor Follow-Up Appointment Counselor Name Javier Brown Agency -- [facility] Case Management Follow-Up Appointment Asphalt Distributor Operator Name Giovanni Mayo Agency -- [facility] Board of Developmental Disabilities [phone] Guardian/Surrogate Decision Maker Name Giovanni Blackmon Discharge Disposition Discharge Disposition Home with Family/Friend Additional Discharge Information Additional Discharge Follow Up Information National Suicide Hotline [phone] Patient/Burial Vault Maker Agreeable With Discharge Plan: Yes FREEDOM OF CHOICE EXPLAINED? N/A Patient/Burial Vault Maker Given/Explained Medicare Discharge Notice (IM letter): Not Applicable TRANSPORTATION ARRANGEMENTS: Car Pt family to transport PRESCRIPTIONS FILLED PRIOR TO DISCHARGE: Yes, faxed to outside pharmacy: [facility] ADDITIONAL NOTES: Pt discharged to home per Dr Garcia. Pt denies SI and symptoms are resolved. Pt to resume care with [facility]. SW faxed discharge clinical, including After Visit Summary, to [facility] for continuity of care on 03/27/2022 at 12:55 pm. SIGNATURE: SANDEEP Carvajal PATIENT NAME: Jayden Blackmon DATE: March 27, 2022 TIME: 1:08 [facility]10-24-2022 NoteHNO ID: [id number] Author: Donavan Stanton RN Service: Nursing Author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
[2025-01-20 20:33] LABS: Troponin T High Sensitivity < 6 ng/L (<=22)
[2025-01-20 21:03] VITALS: BP 133/72; PULSE 61; RESP 25; O2SAT 94
[2025-01-20 22:18] LABS: Troponin T High Sens 2 HR < 6 ng/L (<=22)
[2025-01-20 22:40] VITALS: BP 135/76; PULSE 70; RESP 15; TEMP 36.3; O2SAT 99
== END 2025-01-20 22:40 | disposition home or self-care (01) ==
PROVIDERS: Emergency Provider Emergency Medicine; PCP Family Medicine; Visit Provider Emergency Medicine
DX: R55 Syncope and collapse (principal); E11.9 Type 2 diabetes mellitus without complications; E86.0 Dehydration; R42 Dizziness and giddiness; R06.00 Dyspnea, unspecified; R07.9 Chest pain, unspecified; F84.0 Autistic disorder; F95.2 Tourette's disorder; F32.A Depression, unspecified; F41.9 Anxiety disorder, unspecified; Z79.899 Other long term (current) drug therapy
CPT/HCPCS: 71046; 80048; 84484; 85025; 93005; 99284; A4216

== ENCOUNTER → 2025-03-30 | Outpatient (CLI) | payer MEDICAID, SELFPAY ==
--- OUTSIDE RECORDS SUMMARY | 2025-03-30 08:15 | XMS RPT_ITS | CCD ---
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 percentageOrdered By: Jean-Pierre Harris on 01-20-2025 Eosinophils/100 WBC (Bld) 0.7 % 0-5 [facility] Erythrocyte distribution wid th ratioOrdered By: Jean-Pierre Harris on 01-20-2025 Erythrocyte distribution width (RBC) [Ratio] 12.1 % 11.6-14.6 [facility] Erythrocyte distribution wid th standard deviationOrdered By: Jean-Pierre Harris on 01-20-2025 Erythrocyte distribution width (RBC) [Ratio] 36.3 fl 35.1-43.9 [facility] Glomerular filtration rate ( GFR) estimation/1.73 sq m using serum, plasma, or whole bOrdered By: Jean-Pierre Harris on 01-20-2025 GFR/1.73 sq M.predicted among non-blacks MDRD (S/P/Bld) [Vol rate/Area] 115 mL/min/{1.73_m2} >60 [facility] Comment on above: mL/min/1.73m2 CKD-EP I Creatinine Equation (2020) Hematocrit Auto (Bld) [Volum e fraction]Ordered By: Jean-Pierre Harris on 01-20-2025 Hematocrit (Bld) [Volume fraction] 45.9 % 40-54 [facility] Hemoglobin measurementOrdere d By: Jean-Pierre Harris on 01-20-2025 Hemoglobin (Bld) [Mass/Vol] 16.2 g/dL 13.0-16.5 [facility] Immature granulocytes/100 WB C Auto (Bld)Ordered By: Jean-Pierre Harris on 01-20-2025 Immature granulocytes/100 WBC (Bld) 0.400 % 0.0-0.9 [facility] Comment on above: IG% - Immature Granu locytes (promyelocytes, myelocytes and metamyelocytes) > 1% indicates that a LEFT SHIFT is Present. L501.4021on 01-20-2025 Trop T High Sen < 6 Normal <=22 [facility] Comment on above: Performed By: #### L 501.4021 ####[facility] [id number] [place], [address] MCV (mean corpuscular volume ) determinationOrdered By: Jean-Pierre Harris on 01-20-2025 MCV (RBC) [Entitic vol] 84.7 fL 80-94 [facility] Mean corpuscular hemoglobin (MCH) determinationOrdered By: Jean-Pierre Harris on 01-20-2025 MCH (RBC) [Entitic mass] 29.9 pg 27.0-32.0 [facility] Mean corpuscular hemoglobin concentration (MCHC) determinationOrdered By: Jean-Pierre Harris on 01-20-2025 MCHC (RBC) [Mass/Vol] 35.3 g/dL 32-36 [facility] Mean platelet volume determi nationOrdered By: Jean-Pierre Harris on 01-20-2025 Platelet mean volume (Bld) [Entitic vol] 11.0 fL 6.2-12.0 [facility] Monocyte percentageOrdered B y: Jean-Pierre Harris on 01-20-2025 Monocytes/100 WBC (Bld) 6.7 % 0-10 [facility] Neutrophil percentageOrdered By: Jean-Pierre Harris on 01-20-2025 Neutrophils/100 WBC (Bld) 67.8 % 47-70 [facility] Nucleated red blood cell per centageOrdered By: Jean-Pierre Harris on 01-20-2025 Nucleated RBC/100 WBC (Bld) [Ratio] 0 % 0-5 [facility] Platelet countOrdered By: Eren Harris on 01-20-2025 Platelets (Bld) [#/Vol] 211 10*3/uL 150-450 [facility] Potassium measurement (mass/ volume)Ordered By: Jean-Pierre Harris on 01-20-2025 Potassium (Unsp spec) [Mass/Vol] 3.9 mmol/L 3.3-5.1 [facility] RBC Auto (Bld) [#/Vol]Ordere d By: Jean-Pierre Le on 01-20-2025 RBC (Bld) [#/Vol] 5.42 10*6/uL 4.6-6.2 [facility] Serum creatinine measurement (mass/volume)Ordered By: Jean-Pierre Harris on 01-20-2025 Creatinine [Mass/Vol] 0.95 mg/dL 0.70-1.20 [facility] Serum glucose measurement (m ass/volume)Ordered By: Jean-Pierre Harris on 01-20-2025 Glucose [Mass/Vol] 184 mg/dL High 70-99 [facility] Serum or plasma calcium yasmin urement (mass/volume)Ordered By: Jean-Pierre Harris on 01-20-2025 Calcium [Mass/Vol] 8.8 mg/dL 7.6-11.0 [facility] Serum or plasma urea nitroge n measurement (mass/volume)Ordered By: Jean-Pierre Harris on 01-20-2025 Urea nitrogen [Mass/Vol] 13 mg/dL 4-19 [facility] Sodium levelOrdered By: Jean-Pierre Harris on 01-20-2025 Sodium [Moles/Vol] 140 mmol/L 133-145 [facility] Troponin T HS 2 HRon 025 Trop T High Sen < 6 Normal <=22 [facility] Comment on above: Performed By: #### L 499.0042 #### [facility] [address] [place], [place], [id number] Troponin T.cardiac [Mass/vol ume] in Serum or Plasma by High sensitivity methodOrdered By: Jean-Pierre Harris on 01-20-2025 Troponin T.cardiac High sensitivity method [Mass/Vol] < 6 ng/L <22 [facility] Troponin T.cardiac High sensitivity method [Mass/Vol] < 6 ng/L <22 [facility] White blood cell (WBC) count Ordered By: Jean-Pierre Harris on 01-20-2025 WBC (Bld) [#/Vol] 9.5 10*3/uL 4.4-11.0 [facility] Absolute lymphocyte counton 12-25-2024 Lymphocytes Auto (Unsp spec) [#/Vol] 2.10 10*3/uL 0.83-4.51 [facility] Absolute neutrophil counton 12-25-2024 Neutrophils (Bld) [#/Vol] 4.6 10*3/uL 2.0-7.7 [facility] Anion gap in Serum or Plasma on 12-25-2024 Anion gap [Moles/Vol] 10 mmol/L 5- [facility] Automated lymphocyte count a s percentage of total leukocyteson 12-25-2024 Lymphocytes/100 WBC Auto (Unsp spec) 28.2 % - [facility] BUN/creatinine ratioon 12-25 Urea nitrogen/Creatinine [Mass ratio] 7.4 mg/mg Low 10- [facility] Basophil percentageon 2024 Basophils/100 WBC (Bld) 0.5 % 0-1 [facility] Bilirubin, totalon Bilirubin [Mass/Vol] 0.40 mg/dL 0.00-1.30 [facility] CBC W/Diff, Automatedon 12-02 Absolute Lymph 2.10 X10 3/uL Normal 0.83-4.51 [facility] Comment on above: Performed By: #### L [id number], L500.4100, L100.0100, L500.4050 #### [facility] [address] [place], [address] Absolute Neut 4.6 X10 3/uL Normal 2.0-7.7 [facility] Comment on above: Performed By: #### L [id number], L500.4100, L100.0100, L500.4050 #### [facility] [address] [place], [address] Basophils/100 WBC (Bld) 0.5 % Normal 0-1 [facility] Comment on above: Performed By: #### L [id number], L500.4100, L100.0100, L500.4050 #### [facility] [address] [place], [address] Eosinophils/100 WBC (Bld) 1.1 % Normal 0-5 [facility] Comment on above: Performed By: #### L [id number], L500.4100, L100.0100, L500.4050 #### [facility] [address] [place], [address] Erythrocyte distribution width (RBC) [Ratio] 12.8 % Normal 11.6-14.6 [facility] Comment on above: Performed By: #### L [id number], L500.4100, L100.0100, L500.4050 #### [facility] [address] [place], [address] Hematocrit (Bld) [Volume fraction] 48.4 % Normal 40-54 [facility] Comment on above: Performed By: #### L [id number], L500.4100, L100.0100, L500.4050 #### [facility] [address] [place], [address] Hemoglobin (Bld) [Mass/Vol] 16.5 g/dL Normal 13.0-16.5 [facility] Comment on above: Performed By: #### L [id number], L500.4100, L100.0100, L500.4050 #### [facility] [address] [place], [address] IG% 0.700 Normal 0.0-0.9 [facility] Comment on above: Result Comment: IG% - Immature Granulocytes (promyelocytes, myelocytes and metamyelocytes) > 1% indicates that a LEFT SHIFT is Present. Performed By: #### L [id number], L500.4100, L100.0100, L500.4050 #### [facility] [address] [place], [address] Lymphocytes/100 WBC (Bld) 28.2 % Normal 19-41 [facility] Comment on above: Performed By: #### L [id number], L500.4100, L100.0100, L500.4050 #### [facility] [address] [place], [address] MCH (RBC) [Entitic mass] 29.6 pg Normal 27.0-32.0 [facility] Comment on above: Performed By: #### L [id number], L500.4100, L100.0100, L500.4050 #### [facility] [address] [place], [address] MCHC (RBC) [Mass/Vol] 34.1 g/dL Normal 32-36 [facility] Comment on above: Performed By: #### L [id number], L500.4100, L100.0100, L500.4050 #### [facility] [address] [place], [address] MCV (RBC) [Entitic vol] 86.9 fL Normal 80-94 [facility] Comment on above: Performed By: #### L [id number], L500.4100, L100.0100, L500.4050 #### [facility] [address] [place], [address] Monocytes/100 WBC (Bld) 7.1 % Normal 0-10 [facility] Comment on above: Performed By: #### L [id number], L500.4100, L100.0100, L500.4050 #### [facility] [address] [place], [address] Neutrophils/100 WBC (Bld) 62.4 % Normal 47-70 [facility] Comment on above: Performed By: #### L [id number], L500.4100, L100.0100, L500.4050 #### [facility] [address] [place], [address] Nucleated RBC (Bld) [#/Vol] 0 10*3/uL Normal 0-5 [facility] Comment on above: Performed By: #### L [id number], L500.4100, L100.0100, L500.4050 #### [facility] [address] [place], [address] Platelet mean volume (Bld) [Entitic vol] 11.3 fL Normal 6.2-12.0 [facility] Comment on above: Performed By: #### L [id number], L500.4100, L100.0100, L500.4050 #### [facility] [address] [place], [address] Platelets (Bld) [#/Vol] 206 10*3/uL Normal 150-450 [facility] Comment on above: Performed By: #### L [id number], L500.4100, L100.0100, L500.4050 #### [facility] [address] [place], [address] RBC (Bld) [#/Vol] 5.57 10*6/uL Normal 4.6-6.2 [facility] Comment on above: Performed By: #### L [id number], L500.4100, L100.0100, L500.4050 #### [facility] [address] [place], [address] RDW SD 39.6 fl Normal 35.1-43.9 [facility] Comment on above: Performed By: #### L [id number], L500.4100, L100.0100, L500.4050 #### [facility] [address] [place], [address] WBC (Bld) [#/Vol] 7.4 10*3/uL Normal 4.4-11.0 [facility] Comment on above: Performed By: #### L [id number], L500.4100, L100.0100, L500.4050 #### [facility] [address] [place], [address] Calculated very low density lipoprotein (VLDL) cholesterol measurementon 12-25-2024 Calculated very low density lipoprotein (VLDL) cholesterol measurement 22 mg/dL 5-40 [facility] Carbon dioxide, total [Moles /volume] in Central venous bloodon 12-25-2024 CO2 [Moles/Vol] 24.0 mmol/L 21.0-32.0 [facility] Chloride assayon 12-25-2024 Chloride [Moles/Vol] 106 mmol/L 98-108 [facility] Comprehensive Metabolic Prof ilon 12-25-2024 Albumin [Mass/Vol] 4.2 g/dL Normal 3.5-5.0 [facility] Comment on above: Performed By: #### L [id number], L500.4100, L100.0100, L500.4050 #### [facility] [address] [place], [address] Albumin/Globulin [Mass ratio] 1.7 {ratio} Normal 0.9-2.4 [facility] Comment on above: Performed By: #### L [id number], L500.4100, L100.0100, L500.4050 #### [facility] [address] [place], [address] ALK PHOS 65 U/L Normal 40-129 [facility] Comment on above: Performed By: #### L [id number], L500.4100, L100.0100, L500.4050 #### [facility] [address] [place], [address] ALT [Catalytic activity/Vol] 28 U/L Normal <=46 [facility] Comment on above: Performed By: #### L [id number], L500.4100, L100.0100, L500.4050 #### [facility] [address] [place], [address] AST [Catalytic activity/Vol] 19 U/L Normal <=37 [facility] Comment on above: Performed By: #### L [id number], L500.4100, L100.0100, L500.4050 #### [facility] [address] [place], [address] Bilirubin [Mass/Vol] 0.40 mg/dL Normal 0.00-1.30 [facility] Comment on above: Performed By: #### L [id number], L500.4100, L100.0100, L500.4050 #### [facility] [address] [place], [address] BUN/CRE 7.4 RATIO Low 10-20 [facility] Comment on above: Performed By: #### L [id number], L500.4100, L100.0100, L500.4050 #### [facility] [address] [place], [address] Calcium [Mass/Vol] 9.0 mg/dL Normal 7.6-11.0 [facility] Comment on above: Performed By: #### L [id number], L500.4100, L100.0100, L500.4050 #### [facility] [address] [place], [address] Chloride [Moles/Vol] 106 mmol/L Normal 98-108 [facility] Comment on above: Performed By: #### L [id number], L500.4100, L100.0100, L500.4050 #### [facility] [address] [place], [address] CO2 [Moles/Vol] 24.0 mmol/L Normal 21.0-32.0 [facility] Comment on above: Performed By: #### L [id number], L500.4100, L100.0100, L500.4050 #### [facility] [address] [place], [address] Creatinine [Mass/Vol] 0.97 mg/dL Normal 0.70-1.20 [facility] Comment on above: Performed By: #### L [id number], L500.4100, L100.0100, L500.4050 #### [facility] [address] [place], [address] GAP 10 Normal 5-15 [facility] Comment on above: Performed By: #### L 501.9985, L500.4100, L100.0100, L500.4050 #### [facility] [address] [place], [address] GFR/1.73 sq M.predicted among non-blacks MDRD (S/P/Bld) [Vol rate/Area] 112 mL/min/{1.73_m2} Normal >60 [facility] Comment on above: Result Comment: mL/m in/1.73m2 CKD-EPI Creatinine Equation (2020) Performed By: #### L [id number], L500.4100, L100.0100, L500.4050 #### [facility] [address] [place], [address] Globulin (S) [Mass/Vol] 2.4 g/dL Normal 2.2-4.2 [facility] Comment on above: Performed By: #### L [id number], L500.4100, L100.0100, L500.4050 #### [facility] [address] [place], [address] Glucose [Mass/Vol] 150 mg/dL High 70-99 [facility] Comment on above: Performed By: #### L 501.9985, L500.4100, L100.0100, L500.4050 #### [facility] [address] [place], [address] Potassium [Moles/Vol] 4.2 mmol/L Normal 3.3-5.1 [facility] Comment on above: Performed By: #### L 501.9985, L500.4100, L100.0100, L500.4050 #### [facility] [address] [place], [address] Sodium [Moles/Vol] 140 mmol/L Normal 133-145 [facility] Comment on above: Performed By: #### L 501.9985, L500.4100, L100.0100, L500.4050 #### [facility] [address] [place], [address] T PROT 6.6 g/dL Normal 5.9-8.4 [facility] Comment on above: Performed By: #### L 501.9985, L500.4100, L100.0100, L500.4050 #### [facility] [address] [place], [address] Urea nitrogen [Mass/Vol] 7 mg/dL Normal 4-19 [facility] Comment on above: Performed By: #### L [id number], L500.4100, L100.0100, L500.4050 #### [facility] [address] [place], [address] Eosinophil percentageon 07-2 -2024 Eosinophils/100 WBC (Bld) 1.1 % 0-5 [facility] Erythrocyte distribution wid th ratioon --2024 Erythrocyte distribution width (RBC) [Ratio] 12.8 % 11.6-14.6 [facility] Erythrocyte distribution wid th standard deviationon 12-25-2024 Erythrocyte distribution width (RBC) [Ratio] 39.6 fl 35.1-43.9 [facility] Glomerular filtration rate ( GFR) estimation/1.73 sq m using serum, plasma, or whole bon 12-25-2024 GFR/1.73 sq M.predicted among non-blacks MDRD (S/P/Bld) [Vol rate/Area] 112 mL/min/{1.73_m2} >60 [facility] Comment on above: mL/min/1.73m2 CKD-EP I Creatinine Equation (2020) Hematocrit Auto (Bld) [Volum e fraction]on 12-25-2024 Hematocrit (Bld) [Volume fraction] 48.4 % 40-54 [facility] Hemoglobin A1con 12-25-2024 HbA1c (Bld) [Mass fraction] 6.1 % High <=5.6 [facility] Comment on above: Result Comment: Norm al < 5.7 % Prediabetic 5.7 - 6.4 % Diabetic >or= 6.5 % Please note range changes. Performed By: #### L 501.9985, L500.4100, L100.0100, L500.4050 #### [facility] [address] [place], [place], [id number] Hemoglobin A1c percentageon 12-25-2024 HbA1c (Bld) [Mass fraction] 6.1 % High <5.7 [facility] Comment on above: Normal < 5.7 % Predi abetic 5.7 - 6.4 % Diabetic >or= 6.5 % Please note range changes. Hemoglobin measurementon Hemoglobin (Bld) [Mass/Vol] 16.5 g/dL 13.0-16.5 [facility] Immature granulocytes/100 WB C Auto (Bld)on 12-25-2024 Immature granulocytes/100 WBC (Bld) 0.700 % 0.0-0.9 [facility] Comment on above: IG% - Immature Granu locytes (promyelocytes, myelocytes and metamyelocytes) > 1% indicates that a LEFT SHIFT is Present. LDL calc ser/plason 07-25-20 25 Cholesterol in LDL [Mass/Vol] 93 mg/dL [facility] Comment on above: Xbspmdisal=593-345 m g/dL & Higher Opww=798 mg/dL or greater Laboratory - Chemistry and C hemistry - challengeon 12-25-2024 AST [Catalytic activity/Vol] 19 U/L <38 [facility] Lipid Profileon 12-25-2024 CHOL:HDL 4.79 Normal [facility] Comment on above: Performed By: #### L 501.9985, L500.4100, L100.0100, L500.4050 #### [facility] [address] [place], [address] Cholesterol [Mass/Vol] 146 mg/dL Normal <=190 [facility] Comment on above: Result Comment: Chol esterol level, Desirable <200 mg/dL Borderline high cholesterol 200-239 mg/dL High cholesterol >=240 mg/dL Recommendations of the NCEP Adult Treatment Panel for the following risk-cutoff thresholds for the [place] Citizen population. Performed By: #### L 501.9985, L500.4100, L100.0100, L500.4050 #### [facility] [address] [place], [address] Cholesterol in HDL [Mass/Vol] 31 mg/dL Low [facility] Comment on above: Result Comment: Brandi onal Cholesterol Education Program (NCEP) guidelines: <40 mg/dL: Low HDL-cholesterol (major risk factor for CHD) >= 60 mg/dL: High HDL-cholesterol (negative risk factor for CHD) HDL-cholesterol is affected by a number of factors, e.g. smoking, exercise, hormones, sex and age. Performed By: #### L 501.9985, L500.4100, L100.0100, L500.4050 #### [facility] [address] [place], [address] Cholesterol in LDL [Mass/Vol] 93 mg/dL Normal [facility] Comment on above: Result Comment: Bord rfgjsf=030-714 mg/dL Higher Vkyl=330 mg/dL or greater Performed By: #### L 501.9985, L500.4100, L100.0100, L500.4050 #### [facility] [address] [place], [address] Cholesterol in VLDL [Mass/Vol] 22 mg/dL Normal 5-40 [facility] Comment on above: Performed By: #### L [id number], L500.4100, L100.0100, L500.4050 #### [facility] [address] [place], [address] Triglyceride [Mass/Vol] 112 mg/dL Normal [facility] Comment on above: Result Comment: The drugs N-Acetylcysteine and Metamizole may falsely depress this assay. Normal range: <150 mg/dL Borderline High: 150-199 mg/dL High: 200-499 mg/dL Very High: >500 mg/dL Performed By: #### L [id number], L500.4100, L100.0100, L500.4050 #### [facility] [address] [place], [address] MCV (mean corpuscular volume ) determinationon 12-25-2024 MCV (RBC) [Entitic vol] 86.9 fL 80-94 [facility] Mean corpuscular hemoglobin (MCH) determinationon 12-25-2024 MCH (RBC) [Entitic mass] 29.6 pg 27.0-32.0 [facility] Mean corpuscular hemoglobin concentration (MCHC) determinationon 12-25-2024 MCHC (RBC) [Mass/Vol] 34.1 g/dL 32-36 [facility] Mean platelet volume determi nationon 12-25-2024 Platelet mean volume (Bld) [Entitic vol] 11.3 fL 6.2-12.0 [facility] Monocyte percentageon 2024 Monocytes/100 WBC (Bld) 7.1 % 0-10 [facility] Neutrophil percentageon 12-02 Neutrophils/100 WBC (Bld) 62.4 % 47-70 [facility] Nucleated red blood cell per centageon 12-25-2024 Nucleated RBC/100 WBC (Bld) [Ratio] 0 % 0-5 [facility] Platelet counton 12-25-2024 Platelets (Bld) [#/Vol] 206 10*3/uL 150-450 [facility] Potassium measurement (mass/ volume)on 12-25-2024 Potassium (Unsp spec) [Mass/Vol] 4.2 mmol/L 3.3-5.1 [facility] RBC Auto (Bld) [#/Vol]on RBC (Bld) [#/Vol] 5.57 10*6/uL 4.6-6.2 [facility] Screening total cholesterol/ high density lipoprotein (HDL) cholesterol ratioon 12-25-2024 Cholesterol.total/Chol esterol in HDL [Mass ratio] 4.79 {ratio} [facility] Serum creatinine measurement (mass/volume)on 12-25-2024 Creatinine [Mass/Vol] 0.97 mg/dL 0.70-1.20 [facility] Serum globulin measurementon 12-25-2024 Globulin (S) [Mass/Vol] 2.4 g/dL 2.2-4.2 [facility] Serum glucose measurement (m ass/volume)on 12-25-2024 Glucose [Mass/Vol] 150 mg/dL High 70-99 [facility] Serum or plasma alanine deutsch otransferase (ALT) measurementon 12-25-2024 ALT [Catalytic activity/Vol] 28 U/L <47 [facility] Serum or plasma albumin yasmin urement (mass/volume)on 12-25-2024 Albumin [Mass/Vol] 4.2 g/dL 3.5-5.0 [facility] Serum or plasma albumin/glob ulin mass ratioon 12-25-2024 Albumin/Globulin [Mass ratio] 1.7 {ratio} 0.9-2.4 [facility] Serum or plasma alkaline ayaka sphatase measurementon 12-25-2024 ALP [Catalytic activity/Vol] 65 U/L 40-129 [facility] Serum or plasma calcium yasmin urement (mass/volume)on 12-25-2024 Calcium [Mass/Vol] 9.0 mg/dL 7.6-11.0 [facility] Serum or plasma cholesterol in HDL measurement (mass/volume)on 12-25-2024 Cholesterol in HDL [Mass/Vol] 31 mg/dL Low >40 [facility] Comment on above: National Cholesterol Education Program (NCEP) guidelines:<40 mg/dL: Low HDL-cholesterol (major risk factor for CHD)>= 60 mg/dL: High HDL-cholesterol (negative risk factor for CHD)HDL-cholesterol is affected by a number of factors, e.g. smoking, exercise, hormones, sex and age. Serum or plasma cholesterol measurement (mass/volume)on 12-25-2024 Cholesterol [Mass/Vol] 146 mg/dL <191 [facility] Comment on above: Cholesterol level, D esirable <200 mg/dLBorderline high cholesterol 200-239 mg/dLHigh cholesterol >=240 mg/dLRecommendations of the NCEP Adult Treatment Panel for the following risk-cutoff thresholds for the [place] Citizen population. Serum or plasma urea nitroge n measurement (mass/volume)on 12-25-2024 Urea nitrogen [Mass/Vol] 7 mg/dL 4-19 [facility] Sodium levelon 12-25-2024 Sodium [Moles/Vol] 140 mmol/L 133-145 [facility] Total proteinon 12-25-2024 Protein [Mass/Vol] 6.6 g/dL 5.9-8.4 [facility] Triglycerides measurementon 12-25-2024 Triglyceride [Mass/Vol] 112 mg/dL <199 [facility] Comment on above: The drugs N-Acetylcy steine and Metamizole may falsely depress this assay. Normal range: <150 mg/dLBorderline High: 150-199 mg/dLHigh: 200-499 mg/dLVery High: >500 mg/dL White blood cell (WBC) count on 12-25-2024 WBC (Bld) [#/Vol] 7.4 10*3/uL 4.4-11.0 [facility] Folates, RBCon 09-11-2024 Fol.,Hemolysate 452.0 ng/mL Normal Not Estab. [facility] Comment on above: Order Comment: Test( s) 756659-Phe. B1, Whole Bloodwas developed and its performance characteristicsdetermined by [employer] It has not been cleared or approvedby the Food and Drug Administration. Performed By: #### L 503.5510, L3380.1400, L503.0106, L501.9520, L100.0500, L500.4050, L3300.8000, L3100.1725 ####[facility] [address] [place], [address] Folate, RBC 924 ng/mL Normal >498 [facility] Comment on above: Order Comment: Test( s) [id number]-Juo. B1, Whole Bloodwas developed and its performance characteristicsdetermined by [facility]. It has not been cleared or approvedby the Food and Drug Administration. Performed By: #### L 503.5510, L3380.1400, L503.0106, L501.9520, L100.0500, L500.4050, L3300.8000, L3100.1725 ####[facility] [address] [place], [address] Hematocrit (Bld) [Volume fraction] 48.9 % Normal 37.5-51.0 [facility] Comment on above: Order Comment: Test( s) 844849-Mus. B1, Whole Bloodwas developed and its performance characteristicsdetermined by [employer] It has not been cleared or approvedby the Food and Drug Administration. Performed By: #### L 503.5510, L3380.1400, L503.0106, L501.9520, L100.0500, L500.4050, L3300.8000, L3100.1725 ####[facility] [address] [place], [address] Topiramate, Serumon 09-12-19 25 TOPIRAMATE < 1.5 Low 2.0-25.0 [facility] Comment on above: Order Comment: Test( s) 130139-Ebd. B1, Whole Bloodwas developed and its performance characteristicsdetermined by [facility]. It has not been cleared or approvedby the Food and Drug Administration. Result Comment: Dete ction Limit = 1.5 Performed at: [address] [id number] Aperture Mask Etcher: Sid Frias PhD, Phone: [phone] Performed at: [address] [id number] Aperture Mask Etcher: Kelsie Griffin MD, Phone: [phone] Performed By: #### L 503.5510, L3380.1400, L503.0106, L501.9520, L100.0500, L500.4050, L3300.8000, L3100.1725 ####[facility] [address] [place], [place], [id number] Vitamin B1, Thiamineon 09-11 VIT B1 THIAMINE 156.7 nmol/L Normal 66.5-200.0 [facility] Comment on above: Order Comment: Test( s) 189014-Yds. B1, Whole Bloodwas developed and its performance characteristicsdetermined by [facility]. It has not been cleared or approvedby the Food and Drug Administration. Performed By: #### L 503.5510, L3380.1400, L503.0106, L501.9520, L100.0500, L500.4050, L3300.8000, L3100.1725 ####[facility] [address] [place], [place], [id number] Ammoniaon 09-07-2024 Ammonia (P) [Moles/Vol] 27.4 umol/L Normal 16-60 [facility] Comment on above: Performed By: #### L 503.5510, L3380.1400, L503.0106, L501.9520, L100.0500, L500.4050, L3300.8000, L3100.1725 ####[facility] [address] [place], [place], [address] Anion gap in Serum or Plasma Ordered By: William Whitehead on 09-07-2024 Anion gap [Moles/Vol] 9 mmol/L 5-15 [facility] BUN/creatinine ratioOrdered By: William Whitehead on 09-07-2024 Urea nitrogen/Creatinine [Mass ratio] 14.0 mg/mg 10-20 [facility] Bilirubin, totalOrdered By: William Whitehead on 09-07-2024 Bilirubin [Mass/Vol] 0.42 mg/dL 0.00-1.30 [facility] CBC-Complete Blood Cnt No Di ffon 09-07-2024 Erythrocyte distribution width (RBC) [Ratio] 12.2 % Normal 11.6-14.6 [facility] Comment on above: Performed By: #### L 503.5510, L3380.1400, L503.0106, L501.9520, L100.0500, L500.4050, L3300.8000, L3100.1725 ####[facility] [address] [place], [address] Hematocrit (Bld) [Volume fraction] 47.7 % Normal 40-54 [facility] Comment on above: Performed By: #### L 503.5510, L3380.1400, L503.0106, L501.9520, L100.0500, L500.4050, L3300.8000, L3100.1725 ####[facility] [address] [place], [address] Hemoglobin (Bld) [Mass/Vol] 16.3 g/dL Normal 13.0-16.5 [facility] Comment on above: Performed By: #### L 503.5510, L3380.1400, L503.0106, L501.9520, L100.0500, L500.4050, L3300.8000, L3100.1725 ####[facility] [address] [place], [address] MCH (RBC) [Entitic mass] 29.2 pg Normal 27.0-32.0 [facility] Comment on above: Performed By: #### L 503.5510, L3380.1400, L503.0106, L501.9520, L100.0500, L500.4050, L3300.8000, L3100.1725 ####[facility] [address] [place], [address] MCHC (RBC) [Mass/Vol] 34.2 g/dL Normal 32-36 [facility] Comment on above: Performed By: #### L 503.5510, L3380.1400, L503.0106, L501.9520, L100.0500, L500.4050, L3300.8000, L3100.1725 ####[facility] [address] [place], [address] MCV (RBC) [Entitic vol] 85.3 fL Normal 80-94 [facility] Comment on above: Performed By: #### L 503.5510, L3380.1400, L503.0106, L501.9520, L100.0500, L500.4050, L3300.8000, L3100.1725 ####[facility] [address] [place], [address] Platelet mean volume (Bld) [Entitic vol] 11.3 fL Normal 6.2-12.0 [facility] Comment on above: Performed By: #### L 503.5510, L3380.1400, L503.0106, L501.9520, L100.0500, L500.4050, L3300.8000, L3100.1725 ####[facility] [address] [place], [address] Platelets (Bld) [#/Vol] 189 10*3/uL Normal 150-450 [facility] Comment on above: Performed By: #### L 503.5510, L3380.1400, L503.0106, L501.9520, L100.0500, L500.4050, L3300.8000, L3100.1725 ####[facility] [address] [place], [address] RBC (Bld) [#/Vol] 5.59 10*6/uL Normal 4.6-6.2 [facility] Comment on above: Performed By: #### L 503.5510, L3380.1400, L503.0106, L501.9520, L100.0500, L500.4050, L3300.8000, L3100.1725 ####[facility] [address] [place], [address] RDW SD 37.8 fl Normal 35.1-43.9 [facility] Comment on above: Performed By: #### L 503.5510, L3380.1400, L503.0106, L501.9520, L100.0500, L500.4050, L3300.8000, L3100.1725 ####[facility] [address] [place], [address] WBC (Bld) [#/Vol] 8.1 10*3/uL Normal 4.4-11.0 [facility] Comment on above: Performed By: #### L 503.5510, L3380.1400, L503.0106, L501.9520, L100.0500, L500.4050, L3300.8000, L3100.1725 ####[facility] [address] [place], [place], [id number]) Carbon dioxide, total [Moles /volume] in Central venous bloodOrdered By: William Whitehead on 09-07-2024 CO2 [Moles/Vol] 25.1 mmol/L 21.0-32.0 [facility] Chloride assayOrdered By: Ra prasanna Whitehead on 09-07-2024 Chloride [Moles/Vol] 108 mmol/L 98-108 [facility] Comprehensive Metabolic Prof ilon 09-07-2024 Albumin [Mass/Vol] 3.9 g/dL Normal 3.5-5.0 [facility] Comment on above: Performed By: #### L 503.5510, L3380.1400, L503.0106, L501.9520, L100.0500, L500.4050, L3300.8000, L3100.1725 ####[facility] [address] [place], [address] Albumin/Globulin [Mass ratio] 1.7 {ratio} Normal 0.9-2.4 [facility] Comment on above: Performed By: #### L 503.5510, L3380.1400, L503.0106, L501.9520, L100.0500, L500.4050, L3300.8000, L3100.1725 ####[facility] [address] [place], [address] ALK PHOS 72 U/L Normal 40-129 [facility] Comment on above: Performed By: #### L 503.5510, L3380.1400, L503.0106, L501.9520, L100.0500, L500.4050, L3300.8000, L3100.1725 ####[facility] [address] [place], [address] ALT [Catalytic activity/Vol] 18 U/L Normal <=46 [facility] Comment on above: Performed By: #### L 503.5510, L3380.1400, L503.0106, L501.9520, L100.0500, L500.4050, L3300.8000, L3100.1725 ####[facility] [address] [place], [address] AST [Catalytic activity/Vol] 14 U/L Normal <=37 [facility] Comment on above: Performed By: #### L 503.5510, L3380.1400, L503.0106, L501.9520, L100.0500, L500.4050, L3300.8000, L3100.1725 ####[facility] [address] [place], [address] Bilirubin [Mass/Vol] 0.42 mg/dL Normal 0.00-1.30 [facility] Comment on above: Performed By: #### L 503.5510, L3380.1400, L503.0106, L501.9520, L100.0500, L500.4050, L3300.8000, L3100.1725 ####[facility] [address] [place], [address] BUN/CRE 14.0 RATIO Normal 10-20 [facility] Comment on above: Performed By: #### L 503.5510, L3380.1400, L503.0106, L501.9520, L100.0500, L500.4050, L3300.8000, L3100.1725 ####[facility] [address] [place], [address] Calcium [Mass/Vol] 8.7 mg/dL Normal 7.6-11.0 [facility] Comment on above: Performed By: #### L 503.5510, L3380.1400, L503.0106, L501.9520, L100.0500, L500.4050, L3300.8000, L3100.1725 ####[facility] [address] [place], [address] Chloride [Moles/Vol] 108 mmol/L Normal 98-108 [facility] Comment on above: Performed By: #### L 503.5510, L3380.1400, L503.0106, L501.9520, L100.0500, L500.4050, L3300.8000, L3100.1725 ####[facility] [address] [place], [address] CO2 [Moles/Vol] 25.1 mmol/L Normal 21.0-32.0 [facility] Comment on above: Performed By: #### L 503.5510, L3380.1400, L503.0106, L501.9520, L100.0500, L500.4050, L3300.8000, L3100.1725 ####[facility] [address] [place], [address] Creatinine [Mass/Vol] 0.93 mg/dL Normal 0.70-1.20 [facility] Comment on above: Performed By: #### L 503.5510, L3380.1400, L503.0106, L501.9520, L100.0500, L500.4050, L3300.8000, L3100.1725 ####[facility] [address] [place], [address] GAP 9 Normal 5-15 [facility] Comment on above: Performed By: #### L 503.5510, L3380.1400, L503.0106, L501.9520, L100.0500, L500.4050, L3300.8000, L3100.1725 ####[facility] [address] [place], [address] GFR/1.73 sq M.predicted among non-blacks MDRD (S/P/Bld) [Vol rate/Area] 118 mL/min/{1.73_m2} Normal >60 [facility] Comment on above: Result Comment: mL/m in/1.73m2 CKD-EPI Creatinine Equation (2020) Performed By: #### L 503.5510, L3380.1400, L503.0106, L501.9520, L100.0500, L500.4050, L3300.8000, L3100.1725 ####[facility] [address] [place], [address] Globulin (S) [Mass/Vol] 2.3 g/dL Normal 2.2-4.2 [facility] Comment on above: Performed By: #### L 503.5510, L3380.1400, L503.0106, L501.9520, L100.0500, L500.4050, L3300.8000, L3100.1725 ####[facility] [address] [place], [address] Glucose [Mass/Vol] 123 mg/dL High 70-99 [facility] Comment on above: Performed By: #### L 503.5510, L3380.1400, L503.0106, L501.9520, L100.0500, L500.4050, L3300.8000, L3100.1725 ####[facility] [address] [place], [address] Potassium [Moles/Vol] 4.5 mmol/L Normal 3.3-5.1 [facility] Comment on above: Performed By: #### L 503.5510, L3380.1400, L503.0106, L501.9520, L100.0500, L500.4050, L3300.8000, L3100.1725 ####[facility] [address] [place], [address] Sodium [Moles/Vol] 142 mmol/L Normal 133-145 [facility] Comment on above: Performed By: #### L 503.5510, L3380.1400, L503.0106, L501.9520, L100.0500, L500.4050, L3300.8000, L3100.1725 ####[facility] [address] [place], [address] T PROT 6.3 g/dL Normal 5.9-8.4 [facility] Comment on above: Performed By: #### L 503.5510, L3380.1400, L503.0106, L501.9520, L100.0500, L500.4050, L3300.8000, L3100.1725 ####[facility] [address] [place], [address] Urea nitrogen [Mass/Vol] 13 mg/dL Normal 4-19 [facility] Comment on above: Performed By: #### L 503.5510, L3380.1400, L503.0106, L501.9520, L100.0500, L500.4050, L3300.8000, L3100.1725 ####[facility] [address] [place], [address] Erythrocyte distribution wid th (RBC) [Ratio]Ordered By: William Whitehead on 09-07-2024 Erythrocyte distribution width (RBC) [Entitic vol] 37.8 fL 35.1-43.9 [facility] Erythrocyte distribution wid th ratioOrdered By: [facility]-2024 Erythrocyte distribution width (RBC) [Ratio] 12.2 % 11.6-14.6 [facility] Erythrocyte distribution wid th standard deviationOrdered By: William [facility] on 09-07-2024 Erythrocyte distribution width (RBC) [Ratio] 37.8 fl 35.1-43.9 [facility] Erythrocyte folate measureme nt with hematocritOrdered By: William Whitehead on 09-07-2024 Hematocrit (Bld) [Volume fraction] 48.9 % 37.5-51.0 [facility] GFR/1.73 sq M.predicted adrián g non-blacks MDRD (S/P/Bld) [Vol rate/Area]Ordered By: William Whitehead 09-07-2024 Estimated GFR (MDRD) Non-Af Amer 118 >60 [facility] Comment on above: mL/min/1.73m2 CKD-EP I Creatinine Equation (2020) Glomerular filtration rate ( GFR) estimation/1.73 sq m using serum, plasma, or whole bOrdered By: William Whitehead 09-07-2024 GFR/1.73 sq M.predicted among non-blacks MDRD (S/P/Bld) [Vol rate/Area] 118 mL/min/{1.73_m2} >60 [facility] Comment on above: mL/min/1.73m2 CKD-EP I Creatinine Equation (2020) Hematocrit Auto (Bld) [Volum e fraction]Ordered By: William Whitehead 09-07-2024 Hematocrit (Bld) [Volume fraction] 47.7 % 40-54 [facility] Hemoglobin measurementOrdere d By: William Whitehead 09-07-2024 Hemoglobin (Bld) [Mass/Vol] 16.3 g/dL 13.0-16.5 [facility] Laboratory - Chemistry and C hemistry - challengeOrdered By: William Whitehead on 09-07-2024 AST [Catalytic activity/Vol] 14 U/L <38 [facility] MCV (mean corpuscular volume ) determinationOrdered By: William Whitehead on 09-07-2024 MCV (RBC) [Entitic vol] 85.3 fL 80-94 [facility] Mean corpuscular hemoglobin (MCH) determinationOrdered By: William Whitehead on 09-07-2024 MCH (RBC) [Entitic mass] 29.2 pg 27.0-32.0 [facility] Mean corpuscular hemoglobin concentration (MCHC) determinationOrdered By: William Whitehead on 09-07-2024 MCHC (RBC) [Mass/Vol] 34.2 g/dL 32-36 [facility] Mean platelet volume determi nationOrdered By: William Whitehead on 09-07-2024 Platelet mean volume (Bld) [Entitic vol] 11.3 fL 6.2-12.0 [facility] Platelet countOrdered By: Ra prasanna Whitehead on 09-07-2024 Platelets (Bld) [#/Vol] 189 10*3/uL 150-450 [facility] Potassium (Unsp spec) [Mass/ Vol]Ordered By: William Whitehead on 09-07-2024 Potassium [Moles/Vol] 4.5 mmol/L 3.3-5.1 [facility] Potassium measurement (mass/ volume)Ordered By: William Whitehead on 09-07-2024 Potassium (Unsp spec) [Mass/Vol] 4.5 mmol/L 3.3-5.1 [facility] RBC Auto (Bld) [#/Vol]Ordere d By: William Whitehead on 09-07-2024 RBC (Bld) [#/Vol] 5.59 10*6/uL 4.6-6.2 [facility] Serum creatinine measurement (mass/volume)Ordered By: William Whitehead on 09-07-2024 Creatinine [Mass/Vol] 0.93 mg/dL 0.70-1.20 [facility] Serum globulin measurementOr dered By: William Whitehead on 09-07-2024 Globulin (S) [Mass/Vol] 2.3 g/dL 2.2-4.2 [facility] Serum glucose measurement (m ass/volume)Ordered By: William Whitehead on 09-07-2024 Glucose [Mass/Vol] 123 mg/dL High 70-99 [facility] Serum or plasma alanine deutsch otransferase (ALT) measurementOrdered By: William Whitehead on 09-07-2024 ALT [Catalytic activity/Vol] 18 U/L <47 [facility] Serum or plasma albumin yasmin urement (mass/volume)Ordered By: William Whitehead on 09-07-2024 Albumin [Mass/Vol] 3.9 g/dL 3.5-5.0 [facility] Serum or plasma albumin/glob ulin mass ratioOrdered By: William Whitehead on 09-07-2024 Albumin/Globulin [Mass ratio] 1.7 {ratio} 0.9-2.4 [facility] Serum or plasma alkaline ayaka sphatase measurementOrdered By: William Whitehead on 09-07-2024 ALP [Catalytic activity/Vol] 72 U/L 40-129 [facility] Serum or plasma calcium yasmin urement (mass/volume)Ordered By: William Whitehead on 09-07-2024 Calcium [Mass/Vol] 8.7 mg/dL 7.6-11.0 [facility] Serum or plasma thiamine carmelita surement (mass/volume)Ordered By: William Whitehead on 09-07-2024 Thiamine [Mass/Vol] 156.7 nmol/L 66.5-200.0 [facility] Serum or plasma topiramate m easurement (mass/volume)Ordered By: William Whitehead on 09-07-2024 Topiramate [Mass/Vol] < 1.5 ug/mL Low 2.0-25.0 [facility] Comment on above: Detection Limit = 1. 5Performed at: [facility] [address] [id number] Director: Sid Frias PhD, Phone: [phone] at: [facility] - [facility] [address] [id number] Director: Kelsie Griffin MD, Phone: [phone] Serum or plasma urea nitroge n measurement (mass/volume)Ordered By: William Whitehead on 09-07-2024 Urea nitrogen [Mass/Vol] 13 mg/dL 4-19 [facility] Sodium levelOrdered By: Kaia Whitehead on 09-07-2024 Sodium [Moles/Vol] 142 mmol/L 133-145 [facility] TSH DL <= 0.005 mIU/L QnOrde red By: William Whitehead on 09-07-2024 Thyroid Stimulating Hormone (TSH) 1.810 uIU/mL 0.300-4.200 [facility] TSH Qn 1.810 uIU/mL 0.300-4.200 [facility] Thyroid Stim Hormone (TSH)on 09-07-2024 TSH 1.810 uIU/mL Normal 0.300-4.200 [facility] Comment on above: Performed By: #### L 503.5510, L3380.1400, L503.0106, L501.9520, L100.0500, L500.4050, L3300.8000, L3100.1725 ####[facility] [address] [place], [place], [id number] Total proteinOrdered By: Taqueria Whitehead on 09-07-2024 Protein [Mass/Vol] 6.3 g/dL 5.9-8.4 [facility] Venous blood ammonia measure mentOrdered By: William Whitehead on 09-07-2024 Ammonia (P) [Moles/Vol] 27.4 umol/L 16-60 [facility] Vitamin B12on 09-07-2024 Cobalamin (Vitamin B12) [Mass/Vol] 470 pg/mL Normal 180-914 [facility] Comment on above: Performed By: #### L 503.5510, L3380.1400, L503.0106, L501.9520, L100.0500, L500.4050, L3300.8000, L3100.1725 ####[facility] [address] [place], [address] Vitamin B12 ser/plasOrdered By: William Whitehead on 09-07-2024 Cobalamin (Vitamin B12) [Mass/Vol] 470 pg/mL 180-914 [facility] White blood cell (WBC) count Ordered By: William Whitehead on 09-07-2024 WBC (Bld) [#/Vol] 8.1 10*3/uL 4.4-11.0 [facility] Neurology Visit Reporton Neurology Visit Report [facility] [address], [address] [place], [place] [address] OFFICE VISIT Date of Service: 08/31/24 MR#: [id number] Acct: [id number] Name: JAYDEN BLACKMON Rep #: [id number] : 2000 Provider: Dr. William monzon MD Age/Sex: 24/M Location: [facility]. Status: Signed HPI [facility] Chief Complaint: Establish Care Details: Interim History: [...] Sitting Si (more content not included)... Normal [facility] Brain W/WO Contraston 2023 Brain W/WO Contrast [facility] Imaging Services [address] [place] [address] [id number] Brain W/WO Contrast MR#: [id number] Acct: [id number] Name: JAYDEN BLACKMON Rep #: [id number] : 2000 M 23 From: Yg Vinson MD PCP: Dr. Rodrigo Sheehan MD Status: REG [facility] Study: Brain W/WO Contrast Date of Exam: 04/08/24 Exam# [id number] Ordering Dr: William Whitehead MD [id number] STUDY: MRI BRAIN WITH AND WITHOUT CONTRAST [...] Rodrigo Sheehan MD; Dr. William Whitehead MD Engraver Copperplate: Signed Normal [facility] Neurology Visit Reporton Neurology Visit Report [facility] [address], [address] [place] [id number] OFFICE VISIT Date of Service: 02/20/24 MR#: [id number] Acct: [id number] Name: JAYDEN BLACKMON Rep #: [id number] : 2000 Provider: Dr. William monzon MD Age/Sex: 23/M Location: [facility].BN Status: Signed HPI [facility] Chief Complaint: Establish Care Details: History: The [...] W/WO C (more content not included)... [facility] ([facility] ) JAYDEN BLACKMON ([id number]) 2 M Date Time Provider Department 04/08/23 4:10 PM FRANCES MCGOVERN During your visit today, we recorded the following information about you: Temperature Pulse Blood pressure Weight 97.2 degrees 82/minute 93/62 117.9 kg Frances Mcgovern APRN.[employer]OR 04/08/2023 4:39 PM Signed This note was created using Brandpotionriter. Subjective Jayden Blackmon is a 22 year [...] Frances Mcgovern APRN.CNP 04/08/2023 4:23 PM Signed --------- UPPER RESPIRATORY INFECTIONS Most cases are caused [...] while you are sick so you don't sisal picker a different virus, or infect others. [...] is fr (more content not included)... Normal [facility] STREP A MOLECULAR (POC)on Procedural Control Valid [facility] Strep A (POCT) Negative Negative [facility] Absolute lymphocyte countOrd ered By: Rajinder Rodriguez on 03-22-2023 Lymphocytes Auto (Unsp spec) [#/Vol] 1.86 10*3/uL 0.83-4.51 [facility] Amorphous sediment detection in urine sediment by light microscopyOrdered By: Rajinder Rodriguez on 03-22-2023 Amorphous sediment LM Ql (Urine sed) 2+ [facility] Basophil percentageOrdered B y: Rajinder Rodriguez on 03-22-2023 Basophil percentage 0-5 SEEN /hpf 0-5 [facility] Basophils/100 WBC (Bld) 0.3 % 0-1 [facility] Bilirubin [Mass/Vol] 0.40 mg/dL 0.20-1.00 [facility] Comment on above: For patients on eltr ombopag therapy, use of Dimension [place] TBIL is not recommended. Chloride [Moles/Vol] 108 mmol/L 98-107 [facility] Eosinophils/100 WBC (Bld) 1.0 % 0-5 [facility] Glucose [Mass/Vol] 128 mg/dL 74-106 [facility] Comment on above: Fasting Glucose resu lt greater than or equal to 126 mg/dL suggests DIABETES MELLITUS per A.D.A. criteria. Neutrophils (Bld) [#/Vol] 3.8 10*3/uL 2.0-7.7 [facility] Neutrophils/100 WBC (Bld) 62.0 % 47-70 [facility] Potassium [Moles/Vol] 5.0 mmol/L 3.5-5.1 [facility] Protein [Mass/Vol] 6.5 g/dL 6.4-8.2 [facility] Sodium [Moles/Vol] 140 mmol/L 136-145 [facility] WBC (Bld) [#/Vol] 6.2 10*3/uL 4.4-11.0 [facility] Bilirubin Test strip Ql (U)O rdered By: Rajinder Rodriguez on 03-22-2023 Bilirubin Ql (U) Negative Negative [facility] Blood erythrocytes count (nu mber/volume)Ordered By: Rajinder Rodriguez on 03-22-2023 RBC (Bld) [#/Vol] 5.76 10*6/uL 4.6-6.2 [facility] Blood hemoglobin measurement (mass/volume)Ordered By: Rajinder Rodriguez on 03-22-2023 Hemoglobin (Bld) [Mass/Vol] 16.6 g/dL 13.0-16.5 [facility] Blood lymphocytes/100 leukoc ytesOrdered By: Rajinder Rodriguez on 03-22-2023 Lymphocytes/100 WBC (Bld) 30.2 % 19-41 [facility] Blood monocytes/100 leukocyt esOrdered By: Rajinder Rodriguez on 03-22-2023 Monocytes/100 WBC (Bld) 6.2 % 0-10 [facility] Blood platelet mean volumeOr dered By: Rajinder Rodriguez on 03-22-2023 Platelet mean volume (Bld) [Entitic vol] 11.6 fL 6.2-12.0 [facility] Determination of erythrocyte mean corpuscular volume (MCV)Ordered By: Rajinder Rodriguez on 03-22-2023 MCV (RBC) [Entitic vol] 86.6 fL 80-94 [facility] Direct bilirubinOrdered By: Rajinder Rodriguez on 03-22-2023 Bilirubin.direct [Mass/Vol] 0.06 mg/dL 0.00-0.30 [facility] Hematocrit Auto (Bld) [Volum e fraction]Ordered By: Rajinder Rodriguez on 03-22-2023 Hematocrit (Bld) [Volume fraction] 49.9 % 40-54 [facility] Ketones Test strip Ql (U)Ord ered By: Rajinder Rodriguez on 03-22-2023 Ketones Ql (U) Negative Negative [facility] Laboratory - Chemistry and C hemistry - challengeOrdered By: Rajinder Rodriguez on 03-22-2023 ALP [Catalytic activity/Vol] 54 U/L 45-117 [facility] ALT [Catalytic activity/Vol] 28 U/L 16-61 [facility] CO2 [Moles/Vol] 28.0 mmol/L 21.0-32.0 [facility] Globulin (S) [Mass/Vol] 3.2 g/dL 2.2-4.2 [facility] Lipase [Catalytic activity/Vol] 15 U/L 13-75 [facility] Comment on above: Please note:LIPASE r evised reference range effective 22. New Lipase methodology. Expected to produce lower values than the previous assay method. NEW Reference Range: 13 - 75 U/L Urea nitrogen/Creatinine [Mass ratio] 17.5 mg/mg 03-22 [facility] Laboratory - Hematology and Cell countsOrdered By: Rajinder Rodriguez on 03-22-2023 Erythrocyte distribution width (RBC) [Entitic vol] 38.0 fL 35.1-43.9 [facility] Erythrocyte distribution width (RBC) [Ratio] 12.0 % 11.6-14.6 [facility] Immature granulocytes/100 WBC (Bld) 0.300 % 0.0-0.9 [facility] Comment on above: IG% - Immature Granu locytes (promyelocytes, myelocytes and metamyelocytes) > 1% indicates that a LEFT SHIFT is Present. MCH (RBC) [Entitic mass] 28.8 pg 27.0-32.0 [facility] Nucleated RBC/100 WBC (Bld) [Ratio] 0 % 0-5 [facility] MCHC Auto (RBC) [Mass/Vol]Or dered By: Rajinder Rodriguez on 03-22-2023 MCHC (RBC) [Mass/Vol] 33.3 g/dL 32-36 [facility] Mucus LM Ql (Urine sed)Order ed By: Rajinder Rodriguez on 03-22-2023 Mucus Ql (Urine sed) 0 SEEN /hpf [facility] Nitrite Test strip Ql (U)Ord ered By: Rajinder Rodriguez on 03-22-2023 Nitrite Ql (U) Negative Negative [facility] No Panel InformationOrdered By: Rajinder Rodriguez on 03-22-2023 Estimated Creatinine Clearance Calc 131.14 ml/min [facility] Estimated GFR (MDRD) Amer 133 mL/min >60 [facility] Comment on above: GFR Calc Estimated GFR (MDRD) Non-Af Amer 110 mL/min >60 [facility] Comment on above: Non- GFR Calc Platelets bldOrdered By: Urban Rodriguez on 03-22-2023 Platelets (Bld) [#/Vol] 177 10*3/uL 150-450 [facility] Protein Test strip Ql (U)Ord ered By: Rajinder Rodriguez on 03-22-2023 Protein Ql (U) 15 mg/dl Negative [facility] Serum or plasma albumin yasmin urement (mass/volume)Ordered By: Rajinder Rodriguez on 03-22-2023 Albumin [Mass/Vol] 3.3 g/dL 3.2-5.0 [facility] Serum or plasma calcium yasmin urement (mass/volume)Ordered By: Rajinder Rodriguez on 03-22-2023 Calcium [Mass/Vol] 8.5 mg/dL 8.5-10.1 [facility] Serum or plasma creatinine m easurement (mass/volume)Ordered By: Rajinder Rodriguez on 03-22-2023 Creatinine [Mass/Vol] 0.92 mg/dL 0.70-1.30 [facility] Comment on above: The validity of the calculated GFR & GFRAA in patients over 70 years has not been determined. Clinical correlation is essential. Serum or plasma urea nitroge n measurement (mass/volume)Ordered By: Rajinder Rodriguez on 03-22-2023 Urea nitrogen [Mass/Vol] 16 mg/dL 7-18 [facility] Squamous epithelial cells de tection in urine sediment by light microscopyOrdered By: Rajinder Rodriguez on 03-22-2023 Epithelial cells.squamous LM Ql (Urine sed) 0 SEEN /hpf 0-5 [facility] Thin prep Papanicolaou smear with manual screeningOrdered By: Rajinder Rodriguez on 03-22-2023 Thin prep Papanicolaou smear with manual screening 33 U/L 15-37 [facility] Thin prep Papanicolaou smear with manual screening 4 5-15 [facility] Urine blood detectionOrdered By: Rajinder Rodriguez on 03-22-2023 RBC Ql (U) Negative Negative [facility] RBC Ql (U) 0 SEEN /hpf 0-5 [facility] Urine clarityOrdered By: Urban Rodriguez on 03-22-2023 Clarity (U) Sl. Cloudy Clear [facility] Urine color determinationOrd ered By: Rajinder Rodriguez on 03-22-2023 Color (U) Yellow Yellow [facility] Urine glucose detectionOrder ed By: Rajinder Rodriguez on 03-22-2023 Glucose Ql (U) Normal mg/dl Normal [facility] Urine leukocyte esterase det ection by dipstickOrdered By: Rajinder Rodriguez on 03-22-2023 Leukocyte esterase Test strip Ql (U) 25 /ul Negative [facility] Urine pHOrdered By: Rajinder jordan on 03-22-2023 pH (U) 7.0 [pH] 5.0 - 8.0 [facility] Urine sediment bacteria coun t by microscopy (number/high power field)Ordered By: Rajinder Rodriguez on 03-22-2023 Bacteria LM.HPF (Urine sed) [#/Area] 1 /[HPF] None Seen [facility] Urine specific gravity measu rementOrdered By: Rajinder Rodriguez on 03-22-2023 Specific gravity (U) [Rel density] 1.010 1.002-1.030 [facility] Urobilinogen Auto test strip Ql (U)Ordered By: Rajinder Rodriguez on 03-22-2023 Urobilinogen Ql (U) Normal mg/dl Normal [facility] Amorphous sediment detection in urine sediment by light microscopyOrdered By: Rajendra Hutchinson on 03-20-2023 Amorphous sediment LM Ql (Urine sed) 2+ [facility] Basophil percentageOrdered B y: Rajendra Hutchinson on 03-20-2023 Basophil percentage 0 SEEN /hpf 0-5 [facility] Bilirubin Test strip Ql (U)O rdered By: Rajendra Hutchinson on 03-20-2023 Bilirubin Ql (U) Negative Negative [facility] Culture, urineOrdered By: St sheryl Hutchinson on 03-20-2023 Bacteria identified Cx Nom (U) Culture exhibits no growth. [facility] Ketones Test strip Ql (U)Ord ered By: Rajendra Hutchinson on 03-20-2023 Ketones Ql (U) Negative Negative [facility] Laboratory - Chemistry and C hemistry - challengeon 03-20-2023 Bilirubin Ql (U) Negative [facility] Glucose Ql (U) Negative [facility] Ketones Ql (U) Negative [facility] pH (U) 6 [pH] [facility] Specific gravity (U) [Rel density] 1.010 [facility] Urobilinogen (U) [Mass/Vol] Negative [facility] Laboratory - Hematology and Cell countson 03-20-2023 Hemoglobin Ql (U) Negative [facility] Laboratory - Specimen inform ationon 03-20-2023 Clarity (U) Clear [facility] Color (U) Straw [facility] Laboratory - Urinalysison Nitrite Ql (U) Negative [facility] Protein Ql (U) Negative [facility] Mucus LM Ql (Urine sed)Order ed By: Rajendra Hutchinson on 03-20-2023 Mucus Ql (Urine sed) 0 SEEN /hpf [facility] Nitrite Test strip Ql (U)Ord ered By: Rajendra Hutchinson on 03-20-2023 Nitrite Ql (U) Negative Negative [facility] No Panel Informationon 03-20 Urine Leukocytes Negatve [facility] Urine Non-Hemolyzed Blood Negative [facility] Protein Test strip Ql (U)Ord ered By: Rajendra Hutchinson on 03-20-2023 Protein Ql (U) Negative Negative [facility] Squamous epithelial cells de tection in urine sediment by light microscopyOrdered By: Rajendra Hutchinson on 03-20-2023 Epithelial cells.squamous LM Ql (Urine sed) 0 SEEN /hpf 0-5 [facility] Urine blood detectionOrdered By: Rajendra Hutchinson on 03-20-2023 RBC Ql (U) Negative Negative [facility] RBC Ql (U) 0 SEEN /hpf 0-5 [facility] Urine clarityOrdered By: Jimy Hutchinson on 03-20-2023 Clarity (U) Clear Clear [facility] Urine color determinationOrd ered By: Rajendra Hutchinson on 03-20-2023 Color (U) Yellow Yellow [facility] Urine glucose detectionOrder ed By: Raejndra Hutchinson on 03-20-2023 Glucose Ql (U) Normal mg/dl Normal [facility] Urine leukocyte esterase det ection by dipstickOrdered By: Rajendra Hutchinson on 03-20-2023 Leukocyte esterase Test strip Ql (U) Negative Negative [facility] Urine pHOrdered By: Rajendra orona on 03-20-2023 pH (U) 7.0 [pH] 5.0 - 8.0 [facility] Urine sediment bacteria coun t by microscopy (number/high power field)Ordered By: Rajendra Hutchinson on 03-20-2023 Bacteria LM.HPF (Urine sed) [#/Area] 0 /[HPF] None Seen [facility] Urine specific gravity measu rementOrdered By: Rajendra Hutchinson on 03-20-2023 Specific gravity (U) [Rel density] 1.010 1.002-1.030 [facility] Urobilinogen Auto test strip Ql (U)Ordered By: Rajendra Hutchinson on 03-20-2023 Urobilinogen Ql (U) Normal mg/dl Normal [facility] Basophil percentageOrdered B y: Rodrigo Sheehan on 01-19-2023 Chloride [Moles/Vol] 110 mmol/L 98-107 [facility] Cholesterol [Mass/Vol] 143 mg/dL <200 [facility] Comment on above: <200 mg/dL Desirable 200-240 mg/dL Borderline >240 mg/dL High Risk Glucose [Mass/Vol] 146 mg/dL 74-106 [facility] Comment on above: Fasting Glucose resu lt greater than or equal to 126 mg/dL suggests DIABETES MELLITUS per A.D.A. criteria. Potassium [Moles/Vol] 4.2 mmol/L 3.5-5.1 [facility] Sodium [Moles/Vol] 140 mmol/L 136-145 [facility] Triglyceride [Mass/Vol] 193 mg/dL <199 [facility] Comment on above: The drugs N-Acetylcy steine and Metamizole may falsely depress this assay.Serum Triglycerides Reference Interval Normal <150 mg/dL Borderline high 150 - 199 mg/dL High 200 - 499 mg/dL Very High > or = 500 mg/dL Laboratory - Chemistry and C hemistry - challengeOrdered By: Rodrigo Sheehan on 01-19-2023 CO2 [Moles/Vol] 27.0 mmol/L 21.0-32.0 [facility] Urea nitrogen/Creatinine [Mass ratio] 14.1 mg/mg 10-20 [facility] No Panel InformationOrdered By: Rodrigo Sheehan on 01-19-2023 Estimated GFR (MDRD) Amer 121 mL/min >60 [facility] Comment on above: GFR Calc Estimated GFR (MDRD) Non-Af Amer 100 mL/min >60 [facility] Comment on above: Non- GFR Calc Serum or plasma calcium yasmin urement (mass/volume)Ordered By: Rodrigo Sheehan on 01-19-2023 Calcium [Mass/Vol] 8.6 mg/dL 8.5-10.1 [facility] Serum or plasma cholesterol in HDL measurement (mass/volume)Ordered By: Rodrigo Sheehan on 01-19-2023 Cholesterol in HDL [Mass/Vol] 30 mg/dL >40 [facility] Comment on above: The drugs N-Acetylcy steine and Metamizole may falsely depress this assay. Reference Range HDL <40 mg/dL Low HDL Cholesterol HDL >or= 60 mg/dL High HDL Cholesterol Serum or plasma cholesterol in VLDL measurement (mass/volume)Ordered By: Rodrigo Sheehan on 01-19-2023 Cholesterol in VLDL [Mass/Vol] 39 mg/dL 5-40 [facility] Serum or plasma creatinine m easurement (mass/volume)Ordered By: Rodrigo Sheehan on 01-19-2023 Creatinine [Mass/Vol] 0.99 mg/dL 0.70-1.30 [facility] Comment on above: The validity of the calculated GFR & GFRAA in patients over 70 years has not been determined. Clinical correlation is essential. Serum or plasma low density lipoprotein (LDL) cholesterol measurement (mass/volume)Ordered By: Rodrigo Sheehan on 01-19-2023 Cholesterol in LDL [Mass/Vol] 74 mg/dL 0-130 [facility] Serum or plasma urea nitroge n measurement (mass/volume)Ordered By: Rodrigo Sheehan on 01-19-2023 Urea nitrogen [Mass/Vol] 14 mg/dL 7-18 [facility] Thin prep Papanicolaou smear with manual screeningOrdered By: Rodrigo Sheehan on 01-19-2023 Thin prep Papanicolaou smear with manual screening 3 5-15 [facility] Whole blood hemoglobin A1c/t otal hemoglobin ratio (mass fraction)Ordered By: Rodrigo Sheehan on 01-19-2023 HbA1c (Bld) [Mass fraction] 5.2 % 3.8-5.6 [facility] Comment on above: Normal < 5.7 % Predi abetic 5.7 - 6.4 % Diabetic >or= 6.5 % Please note range changes. Amorphous sediment detection in urine sediment by light microscopyOrdered By: Jose Fish on 11-30-2022 Amorphous sediment LM Ql (Urine sed) 1+ URATE [facility] Basophil percentageOrdered B y: Jose Fish on 11-30-2022 Basophil percentage 0-5 SEEN /hpf 0-5 [facility] Bilirubin Test strip Ql (U)O rdered By: Jose Fish on 11-30-2022 Bilirubin Ql (U) 1 mg/dL Negative [facility] Comment on above: COLOR OF URINE MAY A FFECT DIPSTICK RESULTS. Calcium oxalate crystals det ection in urine sediment by light microscopyOrdered By: Jose Fish on 11-30-2022 Calcium oxalate crystals LM Ql (Urine sed) RARE /hpf [facility] Culture, urineOrdered By: Maxime Mcmullen on 11-30-2022 Bacteria identified Cx Nom (U) Culture exhibits no growth. [facility] Glucose Glucometer (BldC) [M ass/Vol]Ordered By: Jose Fish on 11-30-2022 Glucose [Mass/Vol] 135 mg/dL 74-106 [facility] Comment on above: MANAGEMENT OF PATIEN T CARE PER NURSING PROTOCOL Ketones Test strip Ql (U)Ord ered By: Jose Fish on 11-30-2022 Ketones Ql (U) 5 mg/dl Negative [facility] Mucus LM Ql (Urine sed)Order ed By: Jose Fish on 11-30-2022 Mucus Ql (Urine sed) 0 SEEN /hpf [facility] Nitrite Test strip Ql (U)Ord ered By: Jose Fish on 11-30-2022 Nitrite Ql (U) Negative Negative [facility] Protein Test strip Ql (U)Ord ered By: Jose Fish on 11-30-2022 Protein Ql (U) 30 mg/dl Negative [facility] Squamous epithelial cells de tection in urine sediment by light microscopyOrdered By: Jose Fish on 11-30-2022 Epithelial cells.squamous LM Ql (Urine sed) 0-5 SEEN /hpf 0-5 [facility] Urine blood detectionOrdered By: Jose Fish on 11-30-2022 RBC Ql (U) Negative Negative [facility] RBC Ql (U) 0 SEEN /hpf 0-5 [facility] Urine clarityOrdered By: Marty Fish on 11-30-2022 Clarity (U) Sl. Cloudy Clear [facility] Urine color determinationOrd ered By: Jose Fish on 11-30-2022 Color (U) Yellow Yellow [facility] Urine glucose detectionOrder ed By: Jose Fish on 11-30-2022 Glucose Ql (U) Normal mg/dl Normal [facility] Urine leukocyte esterase det ection by dipstickOrdered By: Jose Fish on 11-30-2022 Leukocyte esterase Test strip Ql (U) 25 /ul Negative [facility] Urine pHOrdered By: Jose matute on 11-30-2022 pH (U) 6.0 [pH] 5.0 - 8.0 [facility] Urine sediment bacteria coun t by microscopy (number/high power field)Ordered By: Jose Fish on 11-30-2022 Bacteria LM.HPF (Urine sed) [#/Area] 0 /[HPF] None Seen [facility] Urine specific gravity measu rementOrdered By: Jose Fish on 11-30-2022 Specific gravity (U) [Rel density] 1.025 1.002-1.030 [facility] Urobilinogen Auto test strip Ql (U)Ordered By: Jose Fish on 11-30-2022 Urobilinogen Ql (U) 1 mg/dl Normal [facility] ED NOTEon 09-22-2022 ED NOTE HNO ID: [id number] Author: Raul Lange RN Service: Emergency Medicine [...] at this time with patient's family. Normal [facility] ED NOTE HNO ID: [id number] Author: Raul Lange RN Service: Emergency Medicine Author Type: Registered Nurse Type: ED Notes Filed: 09/21/2022 11:13 PM Note Text: Patient informed about the name of the medication(s), what the medication(s) is(are) for, and what to expect with/from med administration. Patient given opportunity to ask questions. Medication(s) include: Motrin. Normal [facility] ED PROV NOTEon 09-22-2022 ED PROV NOTE HNO ID: [id number] Author: Cristina Santoyo MD Service: Emergency Medicine [...] 0031 Flu-like symptoms COVID-19 test performed per [facility] policy for suspected COVID community exposure. MDM [...] pneumonia. I (more content not included)... Normal [facility] XR CHEST 2V FRONTAL/LATon XR CHEST 2V FRONTAL/LAT * * *Final Report* * * DATE OF EXAM: Sep 21 [...] cardiomediastinal silhouette. IMPRESSION: No acute cardiopulmonary process. Engraver Copperplate: EVER Transcribe Date/Time: Sep 21 2022 10:22P Dictated by : THALIA RODRIGUEZ MD This examination was interpreted and the report reviewed and electronically signed by: THALIA RODRIGUEZ MD on Sep 21 2022 10:22PM EST [id number] Normal [facility] FLUABV+SARS-CoV-2+RSV Pnl Re sp JOSEFINA+probeon 09-21-2022 FLUABV+SARS-CoV-2+RSV Pnl Resp JOSEFINA+probe COVID 19 RESULT: Not detected The method used is RT-PCR or an equivalent NAAT method. Reference Range(the expected result in uninfected individuals): Not detected INFLUENZA A PCR: Not detected INFLUENZA B PCR: Not detected RSV PCR: Not detected Normal [facility] Comment on above: Performed By: #### 9 [id number] #### [facility] CLIA [id number] [address] [place] [address] 03-27-2022 [facility] HNO ID: [id number] Author: Patricio Garcia MD Service: Psychiatry Author [...] AT DISCHARGE: (more content not included)... Normal [facility] CONSULT PROGon 03-27-2022 CONSULT PROG HNO ID: [id number] Author: Navi Ford MD Service: ? Author [...] DATE: 03/27/2022 TIME: 1:30 PM PAGER: Normal [facility] ECG COMPLETEon 03-27-2022 ECG COMPLETE Ventricular Rate : 6 9 BPM Atrial Rate : 69 BPM P-R Interval : 134 ms QRS Duration : 86 ms Q-T Interval : 370 ms QTC Calculation(Bazett) : 396 ms Calculated P Garfield : -5 degrees Calculated R Garfield : -4 degrees Calculated T Garfield : 10 degrees NORMAL SINUS RHYTHM NORMAL ECG WHEN COMPARED WITH ECG OF 22-MAR-2022 19:35, NO SIGNIFICANT CHANGE WAS FOUND Confirmed by MD YOLANDA, [facility] ([id number]) on 03/28/2022 7:30:10 PM NAME : JAYDEN BLACKMON PID : [id number] : 2000 Gender : Male Race : ORD : [id number] Procedure Date : Mar 27 2022 11:09:39 Edit Date : Mar 28 2022 19:30:13 Diagnosis: NORMAL SINUS RHYTHM NORMAL ECG WHEN COMPARED WITH ECG OF 22-MAR-2022 19:35, NO SIGNIFICANT CHANGE WAS FOUND Confirmed by MD GUERRERO KAMALESH ([id number]) on 03/28/2022 7:30:10 PM Test Reason : Arrhythmia Location : : [address] [place], [place] [id number] Overread By : MD GUERRERO KAMALESH Edited By : MD GUERRERO KAMALESH Referred By : , Acquired by : GIGI HERNANDEZ [facility] NURSING PROGon 03-27-2022 NURSING PROG HNO ID: [id number] Author: Donavan Stanton RN Service: Nursing Author Type: Registered Nurse Type: Nursing Progress Note Filed: 03/27/2022 10:31 AM Note Text: Nursing Progress Note Patient Name: Jayden Blackmon Patient Location: [id number] 1 Daily Note:Pt is lying in bed resting, calm and cooperative. Pt denies SI/HI AVH. Compliant with medications. Encouraged to seek staff with any changes or concerns. Will continue to monitor. This note was completed by: Donavan Stanton [facility] CONSULT PROGon 03-26-2022 CONSULT PROG HNO ID: [id number] Author: Navi Ford MD Service: ? Author [...] DATE: 03/26/2022 TIME: 10:17 AM PAGER: Normal [facility] HbA1c (Bld)on 03-26-2022 Average glucose Estimated from glycated hemoglobin (Bld) [Mass/Vol] 117 mg/dL Normal [facility] Comment on above: Order Comment: Speci men Type: BLOOD SPECIMEN Ordering Facility: [facility] Address: [address] [place] [address] Result Comment: eAG: (Estimated average glucose) is a calculated value from HgbA1c and is security representative of the average blood glucose level in the last 2-3 month period. Performed By: #### 5 643-2 #### [facility] CLIA [id number] [address] STATES OF [facility] HbA1c (Bld) [Mass fraction] 5.7 % High 4.3-5.6 [facility] Comment on above: Order Comment: Steve madhu Type: BLOOD SPECIMEN Ordering Facility: [facility] Address: [address] [place] [address] Result Comment: Amer [place] Diabetes Association guidelines indicate that patients with HgbA1c in the range 5.7-6.4% are at increased risk for development of diabetes, and intervention by lifestyle modification may be beneficial. HgbA1c greater or equal to 6.5% is considered diagnostic of diabetes. Performed By: #### 5 643-2 #### [facility] CLIA [id number] [address] [place] Lipid 1996 panelon 2 Cholesterol [Mass/Vol] 166 mg/dL Normal <200 [facility] Comment on above: Order Comment: Steve madhu Type: BLOOD SPECIMEN Ordering Facility: [facility] Address: [address] [place] [address] Result Comment: <200 mg/dL, Desirable 200-239 mg/dL, Borderline high >239 mg/dL, High Performed By: #### 2 4331-1 #### [facility] CLIA [id number] [address] Cholesterol in HDL [Mass/Vol] 28 mg/dL Low >39 [facility] Comment on above: Order Comment: Steve leung Type: BLOOD SPECIMEN Ordering Facility: [facility] Address: [address] [place] [address] Result Comment: 40-5 9 mg/dL, Acceptable >59 mg/dL, High: Negative risk factor for coronary heart disease <40 mg/dL, Low: Positive risk factor for coronary heart disease Performed By: #### 2 4331-1 #### [facility] CLIA [id number] [address] Cholesterol in LDL [Mass/Vol] 72 mg/dL Normal <100 [facility] Comment on above: Order Comment: Steve leung Type: BLOOD SPECIMEN Ordering Facility: [facility] Address: [address] [place] [address] Result Comment: <100 mg/dL, Optimal 100-129 mg/dL, Near optimal/above optimal 130-159 mg/dL, Borderline high 160-189 mg/dL, High >189 mg/dL, Very high Secondary prevention optimal LDL Cholesterol levels are recommended to be < 70 mg/dL Performed By: #### 2 4331-1 #### [facility] CLIA [id number] [address] [place] [address] [place] Cholesterol in LDL/Cholesterol in HDL [Mass ratio] 2.57 {ratio} High <2.54 [facility] Comment on above: Order Comment: Steve leung Type: BLOOD SPECIMEN Ordering Facility: [facility] Address: [address] [place] [address] Result Comment: Refe rence: 1. National Cholesterol Education Program ATP III Guideline At-A-Glance Quick Desk Reference: National Heart, Lung, and Blood [place]. National Institutes of Health. 2001: NIH Publication [...] and Adolescents: National Heart, Lung and Blood [place]. Pediatrics. 2011:128(Suppl 5):N745-512. Performed By: #### 2 4331-1 #### [facility] CLIA [id number] [address] [place] [address] [place] Cholesterol in VLDL [Mass/Vol] 66 mg/dL High <30 [facility] Comment on above: Order Comment: Steve leung Type: BLOOD SPECIMEN Ordering Facility: [facility] Address: [address] [place] [address] Performed By: #### 2 4331-1 #### [facility] CLIA [id number] [address] OF [facility] Cholesterol non HDL [Mass/Vol] 138 mg/dL High <130 [facility] Comment on above: Order Comment: Steve madhu Type: BLOOD SPECIMEN Ordering Facility: [facility] Address: [address] [place] [address] Result Comment: <130 mg/dL, Optimal 130-159 mg/dL, Near optimal/above optimal 160-189 mg/dL, Borderline high 190-219 mg/dL, High >219 mg/dL, Very high Secondary prevention optimal non HDL Cholesterol levels are recommended to be <100 mg/dL Performed By: #### 2 4331-1 #### [facility] CLIA [id number] [address] Cholesterol.total/Chol esterol in HDL [Mass ratio] 5.93 {ratio} High <5.10 [facility] Comment on above: Order Comment: Steve madhu Type: BLOOD SPECIMEN Ordering Facility: [facility] Address: [address] [place] [address] Performed By: #### 2 4331-1 #### [facility] CLIA [id number] [address] FASTING TIME 12 hrs Normal [facility] Comment on above: Order Comment: Steve madhu Type: BLOOD SPECIMEN Ordering Facility: [facility] Address: [address] [place] [address] Result Comment: 12 Performed By: #### 2 4331-1 #### [facility] CLIA [id number] [address] [place] Triglyceride [Mass/Vol] 331 mg/dL High <150 [facility] Comment on above: Order Comment: Steve madhu Type: BLOOD SPECIMEN Ordering Facility: [facility] Address: [address] [place] [address] Result Comment: <150 mg/dL, Normal 150-199 mg/dL, Borderline high 200-499 mg/dL, High >499 mg/dL, Very high Performed By: #### 2 4331-1 #### [facility] CLIA [id number] [address] OF [facility] NURSING PROGon 03-26-2022 NURSING PROG HNO ID: [id number] Author: Kelley Leon RN Service: ? Author [...] This note was completed by: Kelley Leon [facility] NURSING PROG HNO ID: [id number] Author: Kelley Leon RN Service: ? Author Type: Registered Nurse Type: Nursing Progress Note Filed: 03/26/2022 9:19 PM Note Text: Pt arrived to unit from 6100 with belongings and chart. Pt was accompanied by security. Pt given tour of unit and was oriented to room and call light. No questions or concerns voiced. Will continue to monitor. [facility] NURSING PROG HNO ID: [id number] Author: Og Leon RN Service: ? Author [...] per routine observations. Will continue to monitor. [facility] CONSULT PROGon 03-25-2022 CONSULT PROG HNO ID: [id number] Author: Navi Ford MD Service: ? Author [...] for today's visit: Recent Labs 03/24/22 0610 03/22/22 193 WBC 7.79 12.52* HB 15.6 15.6 HCT [...] Blackmon DATE: 03/25/2022 TIME: 12:07 PM PAGER: [facility] CONSULT PROG HNO ID: [id number] Author: Navi Ford MD Service: ? Author Type: Physician Type: Consult Progress Note Filed: 03/24/2022 11:29 PM Note Text: INPATIENT PROGRESS NOTE SERVICE DATE: 03/24/2022 SERVICE TIME: 11:26 PM SIGNATURE: Navi Ford MD PATIENT NAME: Jayden Blackmon DATE: 03/24/2022 TIME: 11:26 PM PAGER: Normal [facility] CONSULT PROG HNO ID: [id number] Author: Navi Ford MD Service: ? Author [...] for today's visit: Recent Labs 03/24/22 0610 03/22/22 193 WBC 7.79 12.52* HB 15.6 15.6 HCT [...] Blackmon DATE: 03/24/2022 TIME: 11:24 PM PAGER: [facility] NURSING PROGon 03-25-2022 NURSING PROG HNO ID: [id number] Author: Sara Schreiber RN Service: Nursing Author [...] note was completed by Sara Schreiber RN [facility] NURSING PROG HNO ID: [id number] Author: Og Leon RN Service: ? Author [...] routine observations. Will continue to monitor. Normal [facility] NURSING PROG HNO ID: [id number] Author: Last Hubbard RN Service: Nursing Author [...] pt voiced no concerns r/t urination. Normal [facility] CBC W Auto Differential pane l (Bld)on 03-24-2022 Basophils (Bld) [#/Vol] 0.03 10*3/uL Normal <0.11 [facility] Comment on above: Order Comment: Speci men Type: BLOOD SPECIMEN Ordering Facility: [facility] Address: [address] [place] [address] Performed By: #### 5 7021-8 #### [facility] CLIA [id number] [address] [place] [id number] [place] Basophils/100 WBC (Bld) 0.4 % Normal [facility] Comment on above: Order Comment: Speci men Type: BLOOD SPECIMEN Ordering Facility: [facility] Address: [address] [place] [address] Performed By: #### 5 7021-8 #### [facility] CLIA [id number] [address] Differential cell count method Nom (Bld) Auto Normal [facility] Comment on above: Order Comment: Speci men Type: BLOOD SPECIMEN Ordering Facility: [facility] Address: [address] [place] [address] Performed By: #### 5 7021-8 #### [facility] CLIA [id number] [address] Eosinophils (Bld) [#/Vol] 0.13 10*3/uL Normal <0.46 [facility] Comment on above: Order Comment: Speci men Type: BLOOD SPECIMEN Ordering Facility: [facility] Address: [address] [place] [address] Performed By: #### 5 7021-8 #### [facility] CLIA [id number] [address] Eosinophils/100 WBC (Bld) 1.7 % Normal [facility] Comment on above: Order Comment: Speci men Type: BLOOD SPECIMEN Ordering Facility: [facility] Address: [address] [place] [address] Performed By: #### 5 7021-8 #### [facility] CLIA [id number] [address] Erythrocyte distribution width (RBC) [Ratio] 12.6 % Normal 11.5-15.0 [facility] Comment on above: Order Comment: Speci men Type: BLOOD SPECIMEN Ordering Facility: [facility] Address: [address] [place] [address] Performed By: #### 5 7021-8 #### [facility] CLIA [id number] [address] [place] Hematocrit (Bld) [Volume fraction] 45.8 % Normal 39.0-51.0 [facility] Comment on above: Order Comment: Speci men Type: BLOOD SPECIMEN Ordering Facility: [facility] Address: [address] [place] [address] Performed By: #### 5 7021-8 #### [facility] CLIA [id number] [address] [place] Hemoglobin (Bld) [Mass/Vol] 15.6 g/dL Normal 13.0-17.0 [facility] Comment on above: Order Comment: Speci men Type: BLOOD SPECIMEN Ordering Facility: [facility] Address: [address] [place] [address] Performed By: #### 5 7021-8 #### [facility] CLIA [id number] [address] [place] Immature granulocytes (Bld) [#/Vol] 0.03 10*3/uL Normal <0.10 [facility] Comment on above: Order Comment: Speci men Type: BLOOD SPECIMEN Ordering Facility: [facility] Address: [address] [place] [address] Performed By: #### 5 7021-8 #### [facility] CLIA [id number] [address] [place] Immature granulocytes/100 WBC (Bld) 0.4 % Normal [facility] Comment on above: Order Comment: Speci men Type: BLOOD SPECIMEN Ordering Facility: [facility] Address: [address] [place] [address] Performed By: #### 5 7021-8 #### [facility] CLIA [id number] 1 [place] [address] [place] Lymphocytes (Bld) [#/Vol] 2.59 10*3/uL Normal 1.00-4.00 [facility] Comment on above: Order Comment: Speci men Type: BLOOD SPECIMEN Ordering Facility: [facility] Address: [address] [place] [address] Performed By: #### 5 7021-8 #### [facility] CLIA [id number] [address] Lymphocytes/100 WBC (Bld) 33.2 % Normal [facility] Comment on above: Order Comment: Speci men Type: BLOOD SPECIMEN Ordering Facility: [facility] Address: [address] [place] [address] Performed By: #### 5 7021-8 #### [facility] CLIA [id number] [address] MCH (RBC) [Entitic mass] 29.3 pg Normal 26.0-34.0 [facility] Comment on above: Order Comment: Speci men Type: BLOOD SPECIMEN Ordering Facility: [facility] Address: [address] [place] [address] Performed By: #### 5 7021-8 #### [facility] CLIA [id number] [address] MCHC (RBC) [Mass/Vol] 34.1 g/dL Normal 30.5-36.0 [facility] Comment on above: Order Comment: Speci men Type: BLOOD SPECIMEN Ordering Facility: [facility] Address: [address] [place] [address] Performed By: #### 5 7021-8 #### [facility] CLIA [id number] [address] MCV (RBC) [Entitic vol] 86.1 fL Normal 80.0-100.0 [facility] Comment on above: Order Comment: Speci men Type: BLOOD SPECIMEN Ordering Facility: [facility] Address: [address] [place] [address] Performed By: #### 5 7021-8 #### [facility] CLIA [id number] [address] Monocytes (Bld) [#/Vol] 0.59 10*3/uL Normal <0.87 [facility] Comment on above: Order Comment: Speci men Type: BLOOD SPECIMEN Ordering Facility: [facility] Address: [address] [place] [place] [address] Performed By: #### 5 7021-8 #### [facility] CLIA [id number] [address] [place] Monocytes/100 WBC (Bld) 7.6 % Normal [facility] Comment on above: Order Comment: Speci men Type: BLOOD SPECIMEN Ordering Facility: [facility] Address: [address] [place] [address] Performed By: #### 5 7021-8 #### [facility] CLIA [id number] [address] [place] Neutrophils (Bld) [#/Vol] 4.42 10*3/uL Normal 1.45-7.50 [facility] Comment on above: Order Comment: Speci men Type: BLOOD SPECIMEN Ordering Facility: [facility] Address: [address] [place] [address] Performed By: #### 5 7021-8 #### [facility] CLIA [id number] [address] Neutrophils/100 WBC (Bld) 56.7 % Normal [facility] Comment on above: Order Comment: Speci men Type: BLOOD SPECIMEN Ordering Facility: [facility] Address: [address] [place] [address] Performed By: #### 5 7021-8 #### [facility] CLIA [id number] [address] [place] Nucleated RBC (Bld) [#/Vol] 10*3/uL Normal <0.01 [facility] Comment on above: Order Comment: Speci men Type: BLOOD SPECIMEN Ordering Facility: [facility] Address: [address] [place] [address] Performed By: #### 5 7021-8 #### [facility] CLIA [id number] [address] [place] Nucleated RBC/100 WBC (Bld) [Ratio] 0.0 /100 WBC Normal [facility] Comment on above: Order Comment: Speci men Type: BLOOD SPECIMEN Ordering Facility: [facility] Address: [address] [place] [address] Performed By: #### 5 7021-8 #### [facility] CLIA [id number] [address] Platelet mean volume (Bld) [Entitic vol] 10.9 fL Normal 9.0-12.7 [facility] Comment on above: Order Comment: Speci men Type: BLOOD SPECIMEN Ordering Facility: [facility] Address: [address] [place] [address] Performed By: #### 5 7021-8 #### [facility] CLIA [id number] [address] [place] Platelets (Bld) [#/Vol] 203 10*3/uL Normal 150-400 [facility] Comment on above: Order Comment: Speci men Type: BLOOD SPECIMEN Ordering Facility: [facility] Address: [address] [place] [address] Performed By: #### 5 7021-8 #### [facility] CLIA [id number] [address] [place] RBC (Bld) [#/Vol] 5.32 10*6/uL Normal 4.20-6.00 [facility] Comment on above: Order Comment: Speci men Type: BLOOD SPECIMEN Ordering Facility: [facility] Address: [address] Performed By: #### 5 7021-8 #### [facility] CLIA [id number] [address] [place] WBC (Bld) [#/Vol] 7.79 10*3/uL Normal 3.70-11.00 [facility] Comment on above: Order Comment: Speci men Type: BLOOD SPECIMEN Ordering Facility: [facility] Address: [address] [place] [address] Performed By: #### 5 7021-8 #### [facility] CLIA [id number] [address] OF [facility] NURSING PROGon 03-24-2022 NURSING PROG HNO ID: [id number] Author: Og Leon RN Service: ? Author [...] per routine observations. Will continue to monitor. [facility] ALLIED HEALTHon 03-23-2022 ALLIED HEALTH HNO ID: [id number] Author: Eliu Finley Service: ? Author Type: [...] 23, 2022 TIME: 8:51 AM PAGER/CONTACT #: [facility] CONSULTon 03-23-2022 CONSULT HNO ID: [id number] Author: Navi Ford MD Service: ? Author [...] hang himself. His concerta was changed to vEnviance a month ago. Now he has blurred vision . 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 Impression/Recommendations P (more content not included)... Normal [facility] ED NOTEon 03-23-2022 ED NOTE HNO ID: [id number] Author: Raul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 Glucose Test strip (U) [Mass/Vol] Negative Normal Negative [facility] Comment on above: Order Comment: Speci men Type: BLOOD SPECIMEN Ordering Facility: [facility] Address: [address] [place] [address] Performed By: #### 5 643-2 #### [facility] CLIA [id number] [address] [place] [address] [place] Hemoglobin Ql (U) Negative Normal Negative [facility] Comment on above: Order Comment: Speci men Type: BLOOD SPECIMEN Ordering Facility: [facility] Address: [address] [place] [address] Performed By: #### 5 643-2 #### [facility] CLIA [id number] [address] [place] [address] [place] Ketones Ql (U) Negative Normal Negative [facility] Comment on above: Order Comment: Speci men Type: BLOOD SPECIMEN Ordering Facility: [facility] Address: [address] [place] [address] Performed By: #### 5 643-2 #### [facility] CLIA [id number] [address] [place] [address] [facility] Leukocyte esterase Test strip Ql (U) Negative Normal Negative [facility] Comment on above: Order Comment: Speci men Type: BLOOD SPECIMEN Ordering Facility: [facility] Address: [address] [place] [address] Performed By: #### 5 643-2 #### [facility] CLIA [id number] [address] [place] [address] [place] Nitrite Ql (U) Negative Normal Negative [facility] Comment on above: Order Comment: Speci men Type: BLOOD SPECIMEN Ordering Facility: [facility] Address: [address] [place] [address] Performed By: #### 5 643-2 #### [facility] CLIA [id number] [address] [place] [address] [place] pH (U) 7.0 [pH] Normal 5.0-8.0 [facility] Comment on above: Order Comment: Speci men Type: BLOOD SPECIMEN Ordering Facility: [facility] Address: [address] [place] [address] Performed By: #### 5 643-2 #### [facility] CLIA [id number] [address] [place] [address] [place] Protein (U) [Mass/Vol] Negative Normal Negative [facility] Comment on above: Order Comment: Speci men Type: BLOOD SPECIMEN Ordering Facility: [facility] Address: [address] [place] [address] Performed By: #### 5 643-2 #### [facility] CLIA [id number] [address] [place] [address] [place] RBC LM.HPF (Urine sed) [#/Area] 0-3 /HPF Normal 0-3 /HPF [facility] Comment on above: Order Comment: Speci men Type: BLOOD SPECIMEN Ordering Facility: [facility] Address: [address] [place] [address] Performed By: #### 5 643-2 #### [facility] CLIA [id number] [address] [place] [id number] [place] Specific gravity (U) [Rel density] 1.025 Normal 1.005-1.030 [facility] Comment on above: Order Comment: Speci men Type: BLOOD SPECIMEN Ordering Facility: [facility] Address: [address] [place] [address] Performed By: #### 5 643-2 #### [facility] CLIA [id number] [address] [place] [id number] [facility] Urobilinogen Ql (U) 0.2 EU/dL Normal 0.2-1.0 EU/dL [facility] Comment on above: Order Comment: Speci men Type: BLOOD SPECIMEN Ordering Facility: [facility] Address: [address] [place] [address] Performed By: #### 5 643-2 #### [facility] CLIA [id number] [address] WBC LM.HPF (Urine sed) [#/Area] 0-5 /HPF Normal 0-5 /HPF [facility] Comment on above: Order Comment: Speci men Type: BLOOD SPECIMEN Ordering Facility: [facility] Address: [address] [place] [address] Performed By: #### 5 643-2 #### [facility] CLIA [id number] [address] [place] [id number] [facility] XR FOREARM 2V AP/LAT RTon XR FOREARM 2V AP/LAT RT * * *Final Report* * * DATE [...] surfaces are preserved. IMPRESSION: Negative right forearm. Engraver Copperplate: EVER Transcribe Date/Time: Mar 22 2022 8:28P Dictated by : TONY HORNER MD This examination was interpreted and the report reviewed and electronically signed by: TONY HORNER MD on Mar 22 2022 8:29PM EST [id number] Normal [facility] Basophil percentageon 2021 Chloride [Moles/Vol] 105 mmol/L 98-107 [facility] Work Phone: Cholesterol [Mass/Vol] 150 mg/dL <200 [facility] Work Phone: Comment on above: <200 mg/dL Desirable 200-240 mg/dL Borderline >240 mg/dL High Risk Glucose [Mass/Vol] 113 mg/dL 74-106 [facility] Work Phone: Comment on above: Fasting Glucose resu lt from 100 to 125 mg/dL suggests IMPAIRED HOMEOSTASIS per A.D.A. criteria. Potassium [Moles/Vol] 4.2 mmol/L 3.5-5.1 [facility] Work Phone: Sodium [Moles/Vol] 139 mmol/L 136-145 [facility] Work Phone: Triglyceride [Mass/Vol] 163 mg/dL [facility] Work Phone: Comment on above: The drugs N-Acetylcy steine and Metamizole may falsely depress this assay.Serum Triglycerides Reference Interval Normal <150 mg/dL Borderline high 150 - 199 mg/dL High 200 - 499 mg/dL Very High > or = 500 mg/dL WBC (Bld) [#/Vol] 8.9 10*3/uL 4.4-11.0 [facility] Work Phone: Blood erythrocytes count (nu mber/volume)on 09-09-2021 RBC (Bld) [#/Vol] 5.40 10*6/uL 4.6-6.2 [facility] Work Phone: Blood hemoglobin measurement (mass/volume)on 09-09-2021 Hemoglobin (Bld) [Mass/Vol] 15.6 g/dL 13.0-16.5 [facility] Work Phone: Blood platelet mean volumeon 09-09-2021 Platelet mean volume (Bld) [Entitic vol] 11.1 fL 6.2-12.0 [facility] Work Phone: Culture, urineon 09-09-2021 Bacteria identified Cx Nom (U) Positive [facility] Work Phone: Determination of erythrocyte mean corpuscular volume (MCV)on 09-09-2021 MCV (RBC) [Entitic vol] 84.4 fL 80-94 [facility] Work Phone: Hematocrit Auto (Bld) [Volum e fraction]on 09-09-2021 Hematocrit (Bld) [Volume fraction] 45.6 % 40-54 [facility] Work Phone: Laboratory - Chemistry and C hemistry - challengeon 09-09-2021 CO2 [Moles/Vol] 29.0 mmol/L 21.0-32.0 [facility] Work Phone: Urea nitrogen/Creatinine [Mass ratio] 23.2 mg/mg 10-20 [facility] Work Phone: Laboratory - Hematology and Cell countson 09-09-2021 Erythrocyte distribution width (RBC) [Entitic vol] 37.9 fL 35.1-43.9 [facility] Work Phone: Erythrocyte distribution width (RBC) [Ratio] 12.5 % 11.6-14.6 [facility] Work Phone: MCH (RBC) [Entitic mass] 28.9 pg 27.0-32.0 [facility] Work Phone: MCHC Auto (RBC) [Mass/Vol]on 09-09-2021 MCHC (RBC) [Mass/Vol] 34.2 g/dL 32-36 [facility] Work Phone: No Panel Informationon 09-09 Estimated GFR (MDRD) Amer 163 mL/min >60 [facility] Work Phone: Comment on above: GFR Calc Estimated GFR (MDRD) Non-Af Amer 135 mL/min >60 [facility] Work Phone: Comment on above: Non- GFR Calc Thyroid Stimulating Hormone (TSH) 1.68 uIU/mL 0.358-3.74 [facility] Work Phone: Platelets bldon 09-09-2021 Platelets (Bld) [#/Vol] 219 10*3/uL 150-450 [facility] Work Phone: Serum or plasma calcium yasmin urement (mass/volume)on 09-09-2021 Calcium [Mass/Vol] 8.4 mg/dL 8.5-10.1 [facility] Work Phone: Serum or plasma cholesterol in HDL measurement (mass/volume)on 09-09-2021 Cholesterol in HDL [Mass/Vol] 28 mg/dL [facility] Work Phone: Comment on above: The drugs N-Acetylcy steine and Metamizole may falsely depress this assay. Reference Range HDL <40 mg/dL Low HDL Cholesterol HDL >or= 60 mg/dL High HDL Cholesterol Serum or plasma cholesterol in VLDL measurement (mass/volume)on 09-09-2021 Cholesterol in VLDL [Mass/Vol] 33 mg/dL 5-40 [facility] Work Phone: Serum or plasma creatinine m easurement (mass/volume)on 09-09-2021 Creatinine [Mass/Vol] 0.78 mg/dL 0.70-1.30 [facility] Work Phone: Comment on above: The validity of the calculated GFR & GFRAA in patients over 70 years has not been determined. Clinical correlation is essential. Serum or plasma low density lipoprotein (LDL) cholesterol measurement (mass/volume)on 09-09-2021 Cholesterol in LDL [Mass/Vol] 89 mg/dL 0-130 [facility] Work Phone: Serum or plasma urea nitroge n measurement (mass/volume)on 09-09-2021 Urea nitrogen [Mass/Vol] 18 mg/dL 7-18 [facility] Work Phone: Thin prep Papanicolaou smear with manual screeningon 09-09-2021 Thin prep Papanicolaou smear with manual screening 5 5-15 [facility] Work Phone: Progress Noteon 06-02-2020 Material Expediter Authentication Interface Message Text Patient ID: Jayden [...] With Score - Health Risk Assessment - CRAFFT Great toe pain, right ADHD (attention deficit hyperactivity disorder), combined type Generalized anxiety disorder Depressive disorder Failed hearing screening Delay in development Recommend patient follow up with ENT to have hearing checked. Patient followed by psychiatrist. Medications for ADHD/depression/anxiety managed by psychiatrist. Patient also sees a [...] patient's vision. 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 Hyperlipidemia Concerns: Positive Hyperlipidemia Screen Concerns: unknown [...] 175.8 cm, weight (!) 114.4 kg. Normal [facility] Vital Signs Date Time Vital Sign Value Performing Clinician Lethai juan 01-25-2025 08:34-0400 Body height 177.[address] Rodrigo Sheehan MD Work Phone: [facility] 01-25-2025 08:34-0400 Body mass index (BMI) [Ratio] 37.8 kg/m2 Dr. Rodrigo Sheehan MD Work Phone: [facility] 01-25-2025 08:34-0400 Body temperature 98.2 [degF] Dr. Rodrigo Sheehan MD Work Phone: [facility] 01-25-2025 08:34-0400 Body weight 119.[address] Rodrigo Sheehan MD Work Phone: 0(320)797-365695 [place] [address] 01-25-2025 08:34-0400 Diastolic blood pressure 72 mm[Hg] Dr. Rodrigo Sheehan MD Work Phone: 2(138)250-705295 [place] [address] 01-25-2025 08:34-0400 Heart rate 60 /min Dr. Rodrigo Sheehan MD Work Phone: 8(968)103-858895 [place] [address] 01-25-2025 08:34-0400 Respiratory rate 16 /min Dr. Rodrigo Sheehan MD Work Phone: 8(554)880-579095 [place] [address] 01-25-2025 08:34-0400 SaO2% (BldA) [Mass fraction] 97 % Dr. Rodrigo Sheehan MD Work Phone: 2(501)221-347495 [place] [address] 01-25-2025 08:34-0400 Systolic blood pressure 113 mm[Hg] Dr. Rodrigo Sheehan MD Work Phone: 2(716)611-073995 [place] [address] 01-20-2025 22:40-0400 Body temperature 97.4 [degF] Dr. Rodrigo Sheehan MD Work Phone: 2(365)557-455995 [place] [address] 01-20-2025 22:40-0400 Diastolic blood pressure 76 mm[Hg] Dr. Rodrigo Sheehan MD Work Phone: 7(937)959-618095 [place] [address] 01-20-2025 22:40-0400 Heart rate 70 /min Dr. Rodrigo Sheehan MD Work Phone: 5(575)718-904895 [place] [address] 01-20-2025 22:40-0400 Respiratory rate 15 /min Dr. Rodrigo Sheehan MD Work Phone: 7(615)012-061595 [place] [address] 01-20-2025 22:40-0400 SaO2% (BldA) [Mass fraction] 99 % Dr. Rodrigo Sheehan MD Work Phone: 3(630)785-441195 [place] [address] 01-20-2025 22:40-0400 Systolic blood pressure 135 mm[Hg] Dr. Rodrigo Sheehan MD Work Phone: 8(018)415-090095 [place] [address] 01-20-2025 19:04-0400 Body height 177.[address] Rodrigo Sheehan MD Work Phone: 3(248)753-006495 [place] [address] 08-31-2024 10:13-0400 Body height 177.[address] Rodrigo Sheehan MD Work Phone: [facility] 08-31-2024 10:130400 Body mass index (BMI) [Ratio] 40.3 kg/m2 Dr. Rodrigo Sheehan MD Work Phone: [facility] 08-31-2024 10:130400 Body temperature 98.6 [degF] Dr. Rodrigo Sheehan MD Work Phone: [facility] 08-31-2024 10:130400 Body weight 127.[address] Rodrigo Sheehan MD Work Phone: [facility] 08-31-2024 10:13-0400 Diastolic blood pressure 64 mm[Hg] Dr. Rodrigo Sheehan MD Work Phone: [facility] 08-31-2024 10:13-0400 Heart rate 68 /min Dr. Rodrigo Sheehan MD Work Phone: [facility] 08-31-2024 10:130400 Respiratory rate 16 /min Dr. Rodrigo Sheehan MD Work Phone: [facility] 08-31-2024 10:13-0400 SaO2% (BldA) [Mass fraction] 98 % Dr. Rodrigo Sheehan MD Work Phone: [facility] 08-31-2024 10:13-0400 Systolic blood pressure 96 mm[Hg] Dr. Rodrigo Sheehan MD Work Phone: [facility] 04-08-2023 16:14-0500 Body temperature 97.2 [degF] Frances Ball EQUITY STRUCTURER.PAY STATION COLLECTOR Work Phone: [facility] 04-08-2023 16:14-0500 Body weight 117.94 kg Frances Ball EQUITY STRUCTURER.PAY STATION COLLECTOR Work Phone: [facility] 04-08-2023 16:14-0500 Diastolic blood pressure 62 mm[Hg] Frances Ball EQUITY STRUCTURER.PAY STATION COLLECTOR Work Phone: [facility] 04-08-2023 16:14-0500 Heart rate 82 /min Frances Ball EQUITY STRUCTURER.PAY STATION COLLECTOR Work Phone: [facility] 04-08-2023 16:14-0500 SaO2% (BldA) [Mass fraction] 99 % Francesdemarcus Mcgovern EQUITY STRUCTURER.PAY STATION COLLECTOR Work Phone: [facility] 04-08-2023 16:14-0500 Systolic blood pressure 93 mm[Hg] Frances Mcgovern EQUITY STRUCTURER.PAY STATION COLLECTOR Work Phone: [facility] 03-22-2023 15:40-0400 Diastolic blood pressure 76 mm[Hg] Dr. Rodrigo Sheehan Work Phone: [facility] 03-22-2023 15:40-0400 Heart rate 80 /min Dr. Rodrigo Sheehan Work Phone: [facility] 03-22-2023 15:40-0400 Respiratory rate 16 /min Dr. Rodrigo Sheehan Work Phone: [facility] 03-22-2023 15:40-0400 Systolic blood pressure 138 mm[Hg] Dr. Rodrigo Sheehan Work Phone: [facility] 03-22-2023 12:09-0400 Body height 177.[address] Rodrigo Sheehan Work Phone: [facility] 03-22-2023 12:09-0400 Body mass index (BMI) [Ratio] 37 kg/m2 Dr. Rodrigo Sheehan Work Phone: [facility] 03-22-2023 12:09-0400 Body temperature 96.4 [degF] Dr. Rodrigo Sheehan Work Phone: [facility] 03-22-2023 12:09-0400 Body weight 117.[address] Rodrigo Sheehan Work Phone: [facility] 03-22-2023 12:09-0400 SaO2% (BldA) [Mass fraction] 99 % Dr. Rodrigo Sheehan Work Phone: [facility] 03-20-2023 10:27-0400 Body mass index (BMI) [Ratio] 36.4 kg/m2 Dr. Rodrigo Sheehan Work Phone: [facility] 03-20-2023 10:27-0400 Body temperature 98.4 [degF] Dr. Rodrigo Sheehan Work Phone: [facility] 03-20-2023 10:27-0400 Body weight 115.[address] Rodrigo Sheehan Work Phone: [facility] 03-20-2023 10:27-0400 Diastolic blood pressure 78 mm[Hg] Dr. Rodrigo Sheehan Work Phone: [facility] 03-20-2023 10:27-0400 Heart rate 88 /min Dr. Rodrigo Sheehan Work Phone: [facility] 03-20-2023 10:27-0400 Respiratory rate 19 /min Dr. Rodrigo Sheehan Work Phone: [facility] 03-20-2023 10:27-0400 SaO2% (BldA) [Mass fraction] 94 % Dr. Rodrigo Sheehan Work Phone: [facility] 03-20-2023 10:27-0400 Systolic blood pressure 121 mm[Hg] Dr. Rodrigo Sheehan Work Phone: [facility] 11-30-2022 23:37-0400 Diastolic blood pressure 64 mm[Hg] [facility] 11-30-2022 23:37-0400 Heart rate 75 /min [facility] 11-30-2022 23:37-0400 Respiratory rate 18 /min [facility] 11-30-2022 23:37-0400 SaO2% (BldA) [Mass fraction] 100 % [facility] 11-30-2022 23:37-0400 Systolic blood pressure 135 mm[Hg] [facility] 11-30-2022 21:43-0400 Body mass index (BMI) [Ratio] 36.4 kg/m2 [facility] 11-30-2022 21:43-0400 Body weight 111.7 kg [facility] 11-30-2022 21:37-0400 Body height 175.26 cm [facility] 11-30-2022 21:37-0400 Body temperature 97.6 [degF] [facility] 07-21-2021 23:02-0500 Respiratory rate 15 /min [facility] Work Phone: 07-21-2021 20:00-0500 Body height 177.8 cm [facility] Work Phone: 07-21-2021 20:00-0500 Body mass index (BMI) [Ratio] 30.1 kg/m2 [facility] Work Phone: 07-21-2021 20:00-0500 Body temperature 96.8 [degF] [facility] Work Phone: 07-21-2021 20:00-0500 Body weight 95.25 kg [facility] Work Phone: 07-21-2021 20:00-0500 Diastolic blood pressure 86 mm[Hg] [facility] Work Phone: 07-21-2021 20:00-0500 Heart rate 92 /min [facility] Work Phone: 07-21-2021 20:00-0500 SaO2% (BldA) [Mass fraction] 97 % [facility] Work Phone: 07-21-2021 20:00-0500 Systolic blood pressure 146 mm[Hg] [facility] Work Phone: Encounters Encounter Date Encounter Type Care Provider Facility Start: 01-25-2025 End: 01-25-2025 Patient encounter procedure Kaley SANTOS -[facility] Work Phone: Start: 01-25-2025 End: 01-25-[address] Rodrigo Sheehan MD Work Phone: -[facility] Start: 01-20-2025 End: 01-20-2025 Emergency department patient visit Dr. Rodrigo Sheehan MD Work Phone: -Emergency Department Work Phone: Start: 12-25-2024 End: 12-25-[address] Rodrigo Sheehan MD Work Phone: -Laboratory Start: 12-25-2024 End: 12-25-[address] Rodrigo Sheehan MD Work Phone: -Laboratory Work Phone: Start: 12-25-2024 End: 12-25-2024 ambulatory Rodrigo Sheehan Facility:[facility] Start: 09-07-2024 End: 09-07-[address] Rodrigo Sheehan MD Work Phone: [facility] Work Phone: Start: 09-07-2024 End: 09-07-[address] William Whitehead MD -Laboratory Work Phone: Start: 09-07-2024 End: 09-07-2024 ambulatory [facility] Facility:[facility] Start: 08-31-2024 End: 08-31-[address] William Whitehead MD -[facility] Work Phone: Start: 08-31-2024 End: 08-31-2024 ambulatory Rodrigo Sheehan Facility:[facility] Start: 04-08-2024 End: 04-08-2024 ambulatory [facility] Facility:[facility] Start: 02-20-2024 End: 02-20-2024 ambulatory Rodrigo Sheehan Facility:[facility] Start: 04-08-2023 End: 04-08-2023 ambulatory Facility:[facility] Start: 04-08-2023 End: 04-08-2023 Office outpatient new 20 minutes Frances Mcgovern APRN.CNP Work Phone: [facility] Comment on above: Pharyngitis, unspeci fied etiology (Primary Dx); Viral URI with cough Start: 03-22-2023 End: 03-22-2023 Emergency department patient visit Dr. Rodrigo Sheehan Work Phone: [facility] Work Phone: Start: 03-20-2023 Non-patient / Non-visit Dr. Davy Sheehan Work Phone: [facility] Start: 03-20-2023 End: 03-20-[address] Rodrigo Sheehan Work Phone: [facility] Work Phone: Start: 03-20-2023 End: 03-20-[address] Rodrigo Sheehan Work Phone: [facility] Work Phone: Start: 01-19-2023 End: 01-19-2023 ambulatory [facility] Work Phone: Start: 01-19-2023 End: 01-19-2023 [facility] Start: 11-30-2022 End: 11-30-2022 [facility] Work [facility]: Start: 09-21-2022 Emergency department patient visit Facility:[facility] Start: 03-23-2022 End: 03-27-2022 Evaluation and management of inpatient MARCO ANTONIO NINO Facility:[facility] Start: 03-22-2022 End: 03-23-2022 [facility] Start: 03-22-2022 Admission to establishment Sergei Harp HORSE DOCTOR Work Phone: [facility] Start: 03-22-2022 ambulatory Sergei castañeda HORSE DOCTOR Work Phone: [facility]al [facility] Intake Comment on above: Behavioral Problem Start: 09-09-2021 End: 09-09-2021 Patient encounter procedure [facility] Start: 07-21-2021 End: 07-22-2021 Emergency department patient visit [facility] Procedures Date Procedure Procedure Detail Performing Clinician Start: 01-20-2025 X-ray of chest, PA a nd lateral views Dr. Rodrigo Sheehan MD Work Phone: Start: 09-07-2024 Folic acid measureme nt, RBC Dr. Rodrigo Sheehan MD Work Phone: Start: 04-08-2023 STREP A MOLECULAR (POC) [facility] Provider Start: 03-22-2023 Computed tomography of abdomen and pelvis with intravenous contrast Dr. Rodrigo Sheehan Work Phone: Start: 03-20-[address] Rodrigo Sheehan Work Phone: Start: 11-30-2022 Urine culture Start: 09-09-2021 Urine culture Plan of Treatment Date Care Activity Detail Author Start: 01-20-2025 [facility] Start: 01-20-2025 [facility] Start: 09-07-2024 Folic acid measurement, RBC [facility] Start: 09-07-2024 Thiamine measurement [facility] Start: 09-07-2024 Topiramate [Mass/volume] in Serum or Plasma [facility] Start: 12-26-2023 Urine microalbumin profile DTaP,Tdap,Td Vaccine (7 - Td or Tdap) [facility] Start: 03-22-2023 [facility] Start: 03-20-2023 Chlamydia deoxyribonucleic acid detection [facility] Start: 02-01-2023 Covid-19 Vaccine ( season) Covid-19 Vaccine ( season) [facility] Start: 02-01-2023 Influenza vaccination Influenza Vaccine (#1) [facility] Start: 11-30-2022 [facility] Start: 11-30-2022 Chlamydia deoxyribonucleic acid detection [facility] Start: 06-03-2022 Depression Assessment Depression Assessment [facility] Start: 02-01-2022 Influenza vaccination INFLUENZA (#1) [facility] Start: 06-03-2021 DEPRESSION ASSESSMENT DEPRESSION ASSESSMENT [facility] Start: 10-13-2020 COVID-19 VACCINE (3 - Booster for Pfizer series) COVID-19 VACCINE (3 - Booster for Pfizer series) [facility] Start: 2020 Urine microalbumin profile DTAP,TDAP,TD (1 - Tdap) [facility] Start: 2019 HEPATITIS C SCREENING HEPATITIS C SCREENING [facility] Start: 2019 HIV SCREENING HIV SCREENING [facility] Start: 2017 Meningococcal B Vaccine: Consider Based On Risk (1 of 2 - Patient Seeks Protection) Meningococcal B Vaccine: Consider Based On Risk (1 of 2 - Patient Seeks Protection) [facility] Start: 2015 PEDS TO ADULT TRANSITION ANNUAL ASSESSMENT PEDS TO ADULT TRANSITION ANNUAL ASSESSMENT [facility] Start: 2013 PEDS TO ADULT TRANSITION INITIAL DISCUSSION PEDS TO ADULT TRANSITION INITIAL DISCUSSION [facility] Start: 2012 HPV VACCINE (1 - Male 2-dose series) HPV VACCINE (1 - Male 2-dose series) [facility] Start: 2001 HEPATITIS B (1 of 3 - 3-dose series) HEPATITIS B (1 of 3 - 3-dose series) [facility] Hematocrit [Volume Fraction] of Blood [facility] Neisseria gonorrhoea e rRNA [Presence] in Unspecified specimen by JOSEFINA with probe detection [facility] Neisseria gonorrhoea e rRNA [Presence] in Unspecified specimen by JOSEFINA with probe detection [facility] Patient Education [facility] Work Phone: Patient referral [facility] Work Phone: PCR test for Chlamyd ia trachomatis [facility] PCR test for Chlamyd ia trachomatis [facility] Immunizations Immunization Date Immunization Notes Care Provider Zee jacobsen 05-22-2017 influenza virus vacc ine, unspecified formulation Frances Mcgovern APRN.CNP Work Phone: [facility] Payers Date Payer Category Payer Self-pay [id number] 2022 Unknown [id number] 2021 Medicaid [id number] 2021 Unknown [id number] Unknown [id number] 2.16.8 [id number] Unknown [id number] 2.16.8 [id number] Unknown [id number] 2.16.8 [id number] Unknown [id number] 2.16.8 [id number] Unknown [id number] 2.16.8 [id number] Unknown [id number] 2.16.8 [id number] Unknown [id number] 2.16.8 [id number] Social History Date Type Detail Facility Start: 07-21-2021 End: 03-22-2023 Tobacco smoking status LAIS Unknown if ever smoked [facility] Start: 2000 Sex Assigned At Male W [facility] Start: 03-22-2022 End: 01-20-2025 Tobacco smoking status LAIS Never smoked tobacco [facility] Start: 03-22-2022 End: 09-21-2022 Tobacco use and exposure Smokeless tobacco non-user [facility] Start: 03-22-2022 End: 04-08-2023 Alcohol intake Lifetime non-drinker (finding) [facility] Start: 2000 Sex Assigned At Not on file C [facility] Start: 03-12-2022 End: 03-22-2022 Exposure to SARS-CoV-2 (event) Not sure [facility] Start: 04-08-2023 History of Social function [facility] Start: 04-08-2023 Tobacco use panel [facility] National Score (1-100), lower number is lower risk 76 [facility] Start: 09-11-2024 Sex Male (finding) [facility] Mental Status Date Assessment Result Facility 01-20-2025 Cognitive function Level Of Cons ciousness Awake;Alert;Appropriate;Follow s Commands [facility] Work Phone: Clinical Notes 03-22-2022 to 01-20-2025 Note Date & Type Note Facility 01-20-2025 Radiology Diagnostic study note [facility] Imaging Services [address] [place], [place] [address] Chest PA and Lateral MR#: [id number] Acct: [id number] Name: JAYDEN BLACKMON Rep #: [id number] : 2000 M 24 From: Adam Monroy MD PCP: Dr. Rodrigo Sheehan MD Status: REG E R Study:Chest PA and Lateral Date of Exam: 01/20/25 Exam# [id number] Ordering Dr: Jean-Pierre Harris DO PROCEDURE: CHEST PA AND LATERAL 01/20/2025 REASON FOR EXAM: CHEST PAIN TECHNIQUE: CHEST PA AND LATERAL COMPARISON: None. FINDINGS: Lungs/Pleura: Clear. No pneumothorax or pleural effusion. Heart/Mediastinum: Mildly enlarged with central vascular congestion. Bones/Soft tissues: No significant abnormality. RAD/Chest PA and Lateral IMPRESSION: No airspace consolidation or pleural effusion. Mild cardiomegaly with central vascular congestion. Reading Location: [facility] CC: Dr. Rodrigo Sheehan MD; Dr. Jean-Pierre Harris DO ~ Engraver Copperplate: Signed [facility] 08-31-2024 Evaluation note Diagnosis Onset Date Resolution Anxiety acute August 31 10:08am Tourette syndrome acute August 032024 10:08am Abnormal gait resolved August 31, 2024 10:08am [facility] Work Phone: [phone]) 209-590111-06-2023 NoteHNO ID: [id number] Author: Frances Mcgovern APRN.PAY STATION COLLECTOR Service: ? Author Type: Nurse Practitioner Type: [...] COVID-19 original vaccine, age 12+ yr, monovalent (PFIZER-[employer]Health[employer] - PURPLE TOP) 07/28/2020 Imm Admin: COVID-19 original vaccine, age 12+ yr, monovalent (Localize Direct - PURPLE TOP) Sick contacts: no Smoking [...] management Medical Decision Making Level: 4 - [facility] Instructions* Patient Instructions* Frances Mcgovern APRN.CNP - [...] while you are sick so you don't sisal picker a different virus, or infect others. [...] per day. The below information is from prescribersletter.A-STAR: Antibiotics Will rarely help an upper respiratory infections. Antibiotics lead to more resistant infections that are harder to treat. There is little to no benefit to taking antibiotics for most acute upper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
[2025-03-30 10:17] LABS: AST(SGOT) 12 U/L (<=37); Alanine Aminotransfer ALT/SGPT 16 U/L (<=46); Albumin, Serum 4.0 g/dL (3.5-5.0); Alkaline Phosphatase 65 U/L (40-129); Anion Gap 7 (5-15); BUN 10 mg/dL (4-19); BUN/Creat Ratio 9.8 RATIO (10-20); Calcium,Total 8.9 mg/dL (7.6-11.0); Carbon Dioxide 25.2 mmol/L (21.0-32.0); Chloride 108 mmol/L (98-108); Cholesterol 141 mg/dL (<=190); Globulin 2.3 g/dL (2.2-4.2); Glucose 142 mg/dL (70-99); Low Density Lipoprotein Calc. 94 mg/dL; Potassium 4.4 mmol/L (3.3-5.1); Triglycerides 97 mg/dL; Very Low Density Lipoprotein 19 mg/dL (5-40); cholesterol:hdl ratio screen 4.86
== END | disposition home or self-care (01) ==
LOC: MFPLAB 08:27
PROVIDERS: PCP Family Medicine; Referring Provider Family Medicine; Visit Provider Family Medicine
DX: E11.9 Type 2 diabetes mellitus without complications (principal)
CPT/HCPCS: 36415; 80053; 80061